=== PATIENT | male | born 1945 | race Caucasian/White ===

== ENCOUNTER 2019-06-29 10:50 | Outpatient (RCR) | payer MEDICARE, SELFPAY ==
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
== END 2019-07-21 14:40 | disposition home or self-care (01) ==
LOC: CHSPT 10:50
PROVIDERS: Visit Provider Orthopaedic Surgery
DX: Z48.89 Encounter for other specified surgical aftercare (principal); Z96.652 Presence of left artificial knee joint
CPT/HCPCS: 97014; 97016; 97110; 97161; 97530; G0283

== ENCOUNTER 2019-09-21 14:51 | Observation (INO) | payer MEDICARE, SELFPAY ==
[2019-09-21] VITALS (14 sets, daily range): BP systolic 105–141; BP diastolic 68–90; PULSE 68–90; RESP 14–27; TEMP 36.4–37; O2SAT 96–100; BMI 24.2
--- NOTE | ~2019-09-21 | US_ITS ---
EXAMINATION: US right upper quadrant DATE: 09/22/2019 09:37 INDICATION: Abdominal pain TECHNIQUE: Multiple grayscale and Doppler ultrasound images of the abdomen were obtained. COMPARISON: None available FINDINGS: The head and and body of the pancreas are normal. The pancreatic tail is obscured by bowel gas. The liver is normal with normal echogenicity and echotexture. No surface nodularity. Normal hepa topetal flow in the main portal vein. The gallbladder is normal with no abnormal wall thickening, per icholecystic fluid or stones. The normal common bile duct measures 5 mm. There was no sonographic Mur phy sign. IMPRESSION: 1. Normal sonographic study of the gallbladder. Reviewed, dictated and finalized at location A.
--- NOTE | ~2019-09-21 | CT_ITS ---
EXAMINATION: CTA chest EXAM DATE: 09/21/2019 16:26 INDICATION: Shortness of breath, anterior chest pain. Right arm and neck pain. TECHNIQUE: Spiral CTA of the chest was performed with 100 cc Omnipaque 350 intravenous contrast inje ction. Images were acquired during the pulmonary arterial phase. Coronal maximum intensity project ion 3D-reconstructions were created by the technologist on dedicated workstation. Axial, coronal and sagittal reformatted images were reviewed. The dose-length product (DLP) for this examination was 3 87.74 mGy-cm. The exposure was tailored according to patient size (auto mA exposure control), and i terative reconstruction (ASIR) was used as additional dose reduction technique. There is no prior st udy for comparison. FINDINGS: The pulmonary arteries are well opacified. Small amount of enhancement within the aorta. Pu lmonary arteries are well opacified and without intraluminal filling defects. No thoracic aortic di ssection. Scattered calcified granulomas. Minimal linear regions of subsegmental atelectasis. There are no pleural or pericardial effusions. Tracheobronchial tree is patent. There is no mediastina l, hilar or axillary lymphadenopathy. There is no pneumothorax. Heart normal in size. There is mild coronary arterial calcification, arterial sclerosis. Upper abdomen is unremarkable. There is thoracic spondylosis without osteoblastic or osteolytic lesions identified. IMPRESSION: 1. No acute cardiopulmonary findings. 2. Postinfectious residua. Reviewed, dictated and finalized at location A.
--- NOTE | 2019-09-21 15:14 | ECG_ITS ---
Measurements Intervals [place] Rate: 79 P: 42 [place]: 195 QRS: -24 QRSD: 104 T: 32 QT: 374 QTc: 431 Interpretive Statements SINUS RHYTHM INCOMPLETE RIGHT BUNDLE BRANCH BLOCK BASELINE ARTIFACT- I, III BORDERLINE ECG Electronically Signed On 09-22-2019 7:07:26 CDT by Tex Vila D.O.
--- NOTE | 2019-09-21 15:17 | ED.GENADULT ---
HPI - General Adult History of Present Illness HPI narrative: Wilian is a 73-year-old man with a past medical history significant for hyperlipidemia and a AAA that presented to the emergency department by private vehicle with chest pain. He had chest pain that started 4 days ago while he was sitting down. It radiates to his epigastric region, upper back and down his right arm. It is worse with activity and better with rest. It is associated with SOB on exertion, lightheadedness and near syncope but no syncope, nausea or vomiting. No fevers, chills, diarrhea or dysuria. Related Data Home Medications Medication Instructions Recorded Confirmed Vision Formula (with lutein) 1 tablet PO DAILY 05/12/19 09/21/19 rosuvastatin 20 mg tablet 40 mg PO DAILY tablet 05/26/19 09/21/19 Allergies Allergy/AdvReac Type Severity Reaction Status Date / Time Penicillins Allergy Intermediate Rash Verified 07/12/19 07:27 Review of Systems Constitutional: Constitutional: Reports no additional constitutional complaints Eyes: Eyes: Reports no additional eye complaints ENT: Reports system reviewed and no additional complaints, except as documented Cardiovascular: Cardiovascular: Reports as per HPI Respiratory: Respiratory: Reports as per HPI Gastrointestinal: Gastrointestinal: Reports no additional gastrointestinal complaints Musculoskeletal: Musculoskeletal: Reports no additional musculoskeletal complaints Integumentary/Breasts: Skin/Breast: Reports system reviewed and no additional complaints, except as docu Neurologic: Reports system reviewed and no additional complaints, except as documented Psychiatric: Psychiatric: Reports no additional psychiatric complaints Endocrine: Endocrine: Reports no additional endocrine complaints Hematologic/Lymphatic: Hematologic/Lymphatic: Reports no additional hematologic/lymphatic complaints Allergic/Immunologic: Allergic/Immunologic: Reports no additional allergic/immunologic complaints [facility] Past Medical History Medical History AAA (abdominal aortic aneurysm) Arthritis Dementia Elevated PSA Hyperlipidemia Osteoarthritis Seizure Surgical History Surgical History H/O shoulder surgery Status post total knee replacement, 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) Family History Family History Mother Family history of malignant neoplasm of breast in first degree relative Father Stomach cancer Social History Social History Smoking packs per day: 2 Smoking cigarettes per day: 40.0 Years smoked: 30 Smoking pack-years: 60.00 Smoking status: Former smoker Tobacco type: cigarettes Smoking end date: 06/22/89 Alcohol intake: current Drinks per week: 1 Substance use: never Gender identity (if verbalized by the patient): Male Spiritual care concerns: No Agree to blood products: No Exam Const: General: no acute distress and alert Orientation/consciousness: patient oriented x3 Limitations: No altered mental status HENMT: Other: Normocephalic, atraumatic Eyes: Conjunctivae: conjunctivae normal Pupils: Equal, round and reactive pupils present Neck: Neck: normal visual inspection Other: No JVD Chest: Chest palpation & inspection: normal inspection of the chest Resp: Effort & Inspection: normal respiratory effort Auscultation: clear to auscultation bilaterally Cardio: Rate: regular rate Rhythm: regular rhythm Heart sounds: no murmurs Other: No JVD, no lower extremity edema GI: Inspection: non-distended GI Palp: Yes Soft to palpation, No Tenderness to palpation present (GI) and No Guarding due to palpation present (GI) Skin: General skin exam: normal color Rashes: no rashes Neuro: General: patient oriented x3 and moves all extremities Extrem: Genera
[2019-09-21] MEDS: NITROGLYCERIN SL 0.4 MG TABLET SUBLINGUAL ×2 (15:34→23:55)
[2019-09-21] MEDS: ASPIRIN 81 MG CHEWABLE TABLET 324 MG PO (15:34)
[2019-09-21 15:35] LABS: Basophils Absolute Auto 0.03 K/mm3 (0.00-0.10); Basophils Percent Auto 0.6 % (0.0-1.0); Eosinophils Absolute Auto 0.14 K/mm3 (0.02-0.50); Eosinophils Percent Auto 2.6 % (1.0-6.0); Hematocrit 42.5 % (37.0-46.0); Hemoglobin 14.4 g/dL (12.4-15.3); Immature Granulocyte Absolute 0.01 K/mm3 (0.00-0.00); Immature Granulocyte Percent A 0.2 % (0.0-0.0); Lymphocytes Absolute Auto 2.07 K/mm3 (1.10-4.50); Lymphocytes Percent Auto 38.3 % (18.0-42.0); Mean Corpuscular HGB Conc 33.9 g/dL (32.0-36.0); Mean Corpuscular Hemoglobin 31.2 pg (27.0-31.0); Mean Corpuscular Volume 92.2 fL (78.0-102.0); Mean Platelet Volume 9.1 fl (8.7-11.0); Monocytes Absolute Auto 0.63 K/mm3 (0.10-0.90); Monocytes Percent Auto 11.7 % (2.0-11.0); Neutrophils Absolute Auto 2.5 K/mm3 (1.7-7.2); Neutrophils Percent Auto 46.6 % (50.0-70.0); Platelet Count Result 251 K/mm3 (150-420); Red Blood Count 4.61 M/mm3 (4.70-6.10); Red Cell Distribution Width 12.6 % (11.6-14.4); White Blood Count 5.4 K/mm3 (4.8-10.8)
[2019-09-21 15:48] LABS: Prothrombin Time 10.5 Seconds (9.64-11.0)
[2019-09-21 15:54] LABS: BNP 5.1 pg/mL (0-100)
[2019-09-21 15:56] LABS: Alanine Aminotransferase 20 U/L (16-63); Albumin Level 3.5 g/dL (3.4-5.0); Alkaline Phosphatase 106 U/L (46-116); Anion Gap 13.6 mmol/L (7-16); Aspartate Amino Transferase 15 U/L (15-37); Bilirubin,Total 0.3 mg/dL (0.00-1.00); Blood Urea Nitrogen 17 mg/dL (7-18); Calcium 8.6 mg/dL (8.5-10.1); Carbon Dioxide 26 mmol/L (21-32); Chloride 107 mmol/L (98-108); Estimated CRCL calculation 62 ml/min; Estimated Glomerular Filt Rate > 60; Glucose 95 mg/dL (70-99); Lipase 100 U/L (73-393); Osmolality Calculated 297 mOsm/kg (285-295); Potassium 3.6 mmol/L (3.5-5.1); Sodium 143 mmol/L (136-145); Total Protein 7.3 g/dL (6.4-8.2)
[2019-09-21 16:00] LABS: Troponin I < 0.02 ng/mL (0.00-0.056)
--- NOTE | 2019-09-21 16:58 | PC.NURSE ---
PT TO BE TRANSFERRED TO 2ND FLOOR AN OBSERVATION ADMIT, ROOM 210 PROVIDED BY JOAQUIN [employer] GENERAL MANAGER, REGISTRATION NOTIFIED.
--- NOTE | 2019-09-21 17:48 | PC.NURSE ---
here from ER with c/o chest pain off and on for 4 days. he claims they come more with exertion. at this time he denies pain. lungs cta. abd soft and bs present. no edema. skin warm and dry. Sr on tele with rates of 70's. oriented to room. eating supper.
--- NOTE | 2019-09-21 21:31 | ECG_ITS ---
Measurements Intervals [place] Rate: 70 P: 50 [place]: 199 QRS: -24 QRSD: 109 T: 35 QT: 399 QTc: 431 Interpretive Statements SINUS RHYTHM INCOMPLETE RIGHT BUNDLE BRANCH BLOCK BORDERLINE ECG Electronically Signed On 09-22-2019 7:43:39 CDT by Tex Vila D.O.
[2019-09-21 21:54] LABS: Troponin I < 0.02 ng/mL (0.00-0.056)
--- NOTE | 2019-09-21 22:50 | PC.NURSE ---
report received from previous RN, pt denies any chest pain or other complaints at this time, belongings and call light within reach, advised to call with any pain or discomfort
--- NOTE | 2019-09-21 23:25 | PC.NURSE ---
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
[2019-09-21] MEDS: ACETAMINOPHEN 325 MG TABLET 650 MG PO (23:35)
--- NOTE | 2019-09-21 23:44 | ECG_ITS ---
Measurements Intervals [place] Rate: 67 P: 44 [place]: 190 QRS: -22 QRSD: 117 T: 28 QT: 407 QTc: 430 Interpretive Statements SINUS RHYTHM INTRAVENTRICULAR CONDUCTION DELAY BORDERLINE ECG Electronically Signed On 09-22-2019 7:42:59 CDT by Tex Vila D.O.
--- NOTE | 2019-09-22 | PC.NURSE ---
pt reports chest pain is resolving, and arm pain is gone, does not want another Nitro med, pt resting and denies any other needs at this time.
--- NOTE | 2019-09-22 00:03 | PC.NURSE ---
2335 Pt c/o chest pain and right arm pain and states his pain is a '5' on a 1-10 pain scale. Attempted to contact Dr. Contreras but he was with another pt; Damien, ER nurse said to get a STAT EKG and cardiac enzymes and she would notify Dr. Contreras about pt's c/o chest pain.
--- NOTE | 2019-09-22 00:08 | PC.NURSE ---
[address] Contreras
[2019-09-22 00:11] LABS: Troponin I < 0.02 ng/mL (0.00-0.056)
--- NOTE | 2019-09-22 01:07 | PC.NURSE ---
pt sitting up watching tv, denies any pain or needs at this time.
--- NOTE | 2019-09-22 02:06 | PC.NURSE ---
pt sitting up in chair, denies any chest pain at this time, denies any other needs
--- NOTE | 2019-09-22 02:50 | PC.NURSE ---
lab at bedside for troponin level
--- NOTE | 2019-09-22 03:10 | ECG_ITS ---
Measurements Intervals [place] Rate: 71 P: 43 [place]: 200 QRS: -23 QRSD: 105 T: 30 QT: 398 QTc: 435 Interpretive Statements SINUS RHYTHM NORMAL ECG Electronically Signed On 09-22-2019 7:43:11 CDT by Tex Vila D.O.
[2019-09-22 03:14] LABS: Troponin I 0.02 ng/mL (0.00-0.056)
[2019-09-22 03:35] VITALS: PULSE 73
--- NOTE | 2019-09-22 03:41 | PC.NURSE ---
pt resting in bed, denies any needs at this time
--- NOTE | 2019-09-22 04:07 | PC.NURSE ---
pt sleeping, no evidence of distress noted
--- NOTE | 2019-09-22 05:11 | PC.NURSE ---
pt sleeping, no evidence of distress noted, call light and belongings within reach
--- NOTE | 2019-09-22 06:18 | PC.NURSE ---
pt sleeping, no evidence of distress noted at this time, belongings and call light within reach
--- NOTE | 2019-09-22 07:05 | PC.NURSE ---
States did have an episode of left chest pain radiated in to back this am, starting to resolve at this time, no diaphoresis and no dyspnea associated with pain, sharp in nature, telemetry SR 70's
[2019-09-22 07:07] VITALS: PULSE 72; RESP 18; TEMP 37
--- NOTE | 2019-09-22 08:05 | PC.NURSE ---
Due to question of gall bladder check breakfast tray held at this time
--- NOTE | 2019-09-22 08:52 | PC.NURSE ---
Ultra sound has been ordered, will remain NPO at this time
[2019-09-22 09:10] LABS: CRP 0.9 mg/dL (0.0-0.9)
--- NOTE | 2019-09-22 09:10 | PC.NURSE ---
Bedside ultrasound being completed
[2019-09-22] MEDS: OPTI-GEN TAB 1 TABLET PO (09:32)
[2019-09-22] MEDS: ROSUVASTATIN 10 MG TABLET 40 MG PO (09:32)
[2019-09-22] MEDS: ASPIRIN 81 MG ENTERIC TABLET PO (09:33)
[2019-09-22] MEDS: PANTOPRAZOLE 40 MG TABLET PO (09:33)
--- NOTE | 2019-09-22 09:35 | PC.NURSE ---
Ultrasound completed, breakfast and am meds to patient
--- NOTE | 2019-09-22 09:46 | PM.SD ---
Same Day Admit/Disch: HPI History of Present Illness Chief complaint: chest and right arm pain Narrative: Wilian Rodgers is a 73 year old male That presented yesterday to the ED with complaints chest pain . Patient has a past history hyperlipidemia, AA, dementia increased PSA seizures, osteoarthritis and arthritis. According to patient for the last 4 days he has not been experiencing chest pain that radiates to his epigastric region in upper back and down his right arm. Patient did note that increased with activity and also his epigastric pain increased with food intake. He also noted that he had shortness of exertion with lightheadedness. Patient did not take anything at this. Patient says he has experience occurs in the past and this does not feel like her. his requested a call back and suggested that at ultrasound of the gallbladder be completed. Ultrasound was completed and was unremarkable it did indicate bowel gas. Patient able to tolerate all meals , slept well and ambulate at baseline. Patient denies , palpitation, extremity numbness, lightheadness, dizziness, constipation, diarrhea, chills or fever. Patient agree that they are ready for discharge and discharge plan. patient has not experienced chest pain or epigastric pains this hospital stay. He does note that his abdomen remains tender. Patient will have to follow-up with his primary care physician for further testing if needed. [facility] Past Medical History Medical History AAA (abdominal aortic aneurysm) Arthritis Dementia Elevated PSA Hyperlipidemia Osteoarthritis Seizure Surgical History Surgical History H/O shoulder surgery Status post total knee replacement, 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) Family History Family History Mother Family history of malignant neoplasm of breast in first degree relative Father Stomach cancer Social History Social History Smoking packs per day: 2 Smoking cigarettes per day: 40.0 Years smoked: 30 Smoking pack-years: 60.00 Smoking status: Former smoker Tobacco type: cigarettes Smoking end date: 06/22/89 Alcohol intake: current Drinks per week: 1 Substance use: never Gender identity (if verbalized by the patient): Male Spiritual care concerns: No Agree to blood products: No Same Day Admit/Disch: Med Pre-admit Medications Home Medications Medication Instructions Recorded Confirmed Type Vision Formula (with lutein) 1 tablet PO DAILY 05/12/19 09/21/19 History rosuvastatin 20 mg tablet 40 mg PO DAILY tablet 05/26/19 09/21/19 History aspirin [Enteric Coated Aspirin] 81 mg PO DAILY #28 tablet 06/09/19 09/21/19 Rx meloxicam 7.5 mg PO BID #60 tablet 06/09/19 09/21/19 Rx hydrocodone-acetaminophen 1 tab PO Q4H PRN #15 tablet 09/22/19 Rx Exam Const: General: cooperative and comfortable Orientation/consciousness: patient oriented x3 Resp: Effort & Inspection: normal respiratory effort, able to speak in complete sentences, no cough, not labored, no nasal flaring and no pursed lip breathing Auscultation: clear to auscultation bilaterally Cardio: Jugular venous distension: no JVD Rate: regular rate Rhythm: regular rhythm GI: Inspection: normal to inspection GI Palp: Yes abdominal tenderness Percussion: Yes normal to percussion Auscultation: normal bowel sounds Skin: General skin exam: normal color Lesions: no lesions Rashes: no rashes Trauma: no lacerations or abrasions Wounds: no wounds Neuro: General: oriented to person, moves all extremities and CN's II-XI intact bilaterally Cognition (Neuro): normal cognition Speech: normal speech DS: Data Data Completed and Pending Labs on day of discharge: Labs from last 24 hours 09/22/19 09/22/19 09/21/19 02:51 02:50 23:48 WBC
[2019-09-22] MEDS: SIMETHICONE 80 MG TAB.CHEW PO (10:06)
--- NOTE | 2019-09-22 10:40 | PC.NURSE ---
Discharge to home, denies questions, discharge packet reviewed and sent home with personal items
--- NOTE | 2019-09-28 15:04 | PC.NURSE ---
DISCHARGE FOLLOW UP: no answer, message left
== END 2019-09-22 10:40 | disposition home or self-care (01) ==
LOC: CHSED 17:00 → CHS2ND 17:01
PROVIDERS: Nurse Practitioner; Admitting Provider Family Medicine; Emergency Provider Family Medicine; PCP Family Medicine; Visit Provider Family Medicine
DX: R07.9 Chest pain, unspecified (principal); R10.13 Epigastric pain; E78.5 Hyperlipidemia, unspecified; R06.02 Shortness of breath; I71.4 Abdominal aortic aneurysm, without rupture; F03.90 Unspecified dementia, unspecified severity, without behavioral disturbance, psychotic disturbance, mood disturbance, and anxiety; R97.20 Elevated prostate specific antigen [PSA]; M19.90 Unspecified osteoarthritis, unspecified site; Z96.652 Presence of left artificial knee joint
CPT/HCPCS: 36415; 71275; 76705; 80053; 83690; 83880; 84484; 85025; 85610; 86140; 93005; 99285; A9270; G0378; Q9965

== ENCOUNTER 2019-09-28 09:17 | Outpatient (CLI) | payer MEDICARE, SELFPAY ==
[2019-09-30 17:04] LABS: H pylori, Urea Breath NOT DETECTED (NOT DETECTED)
== END 2019-09-28 09:18 | disposition home or self-care (01) ==
LOC: CHSLAB 09:20
PROVIDERS: PCP Family Medicine; Visit Provider Family Medicine
DX: K21.9 Gastro-esophageal reflux disease without esophagitis (principal)
CPT/HCPCS: 83013

== ENCOUNTER 2019-10-10 07:10 | Outpatient (CLI) | payer MEDICARE, SELFPAY ==
--- NOTE | 2019-10-10 07:24 | EST_ITS ---
Patient Info Name: Wilian Rodgers Age: 74 years : 1945 Gender: Male Ht: 71 in Wt: 171 lbs BSA: 1.97 m2 HR: 77 bpm BP: 132 / 91 mmHg Heart Rhythm: Sinus Rhythm Technical Quality: Fair Exam Date: 10/10/2019 8:55 AM Exam Location: [facility] Patient Status: Outpatient Admit Date: 10/10/2019 Staff Ordering Physician: Cody Contreras DO Attending Provider: Cody Contreras DO Referring Physician: Cody Christianson Exercise Technologist: Reina Pickens CRT Exercise Physician: Erma Gamboa CEP Exam Type: CA stress test treadmill w NM Study Info Indications ChestPain - An exercise stress test was performed. Reason for Poor Study: poor patient cooperation History/Risk Factors Tobacco Use: Former History/Risk Factors Hypercholesterolemia. Summary 1. 1. Negative Abdoulaye exercise stress test for ischemic ST changes by ECG criteria. 2. 2. Mild reduced functional capacity, achieving 8 METs of workload. 3. 3. Appropriate HR response to exercise. 4. 4. Appropriate HR recovery at 1 minute post exercise. 5. 5. Relative hypotensive response to exercise. 6. 6. Nuclear scan to follow and will be reported separately. Please correlate with it. Protocol: Abdoulaye Stress ECG Details Stage: REST Duration (min): 1 min : 52 sec Speed (mph): 0.0 Grade (%): 0 HR (bpm): 78 SBP (mmHg): 132 DBP (mmHg): 91 METS: --- Stage: REST Duration (min): 3 min : 53 sec Speed (mph): 0.0 Grade (%): 0 HR (bpm): 90 SBP (mmHg): 132 DBP (mmHg): 91 METS: --- Stage: STAGE 1 Duration (min): 1 min : 0 sec Speed (mph): 1.7 Grade (%): 10 HR (bpm): 99 SBP (mmHg): 132 DBP (mmHg): 91 METS: --- Stage: STAGE 1 Duration (min): 2 min : 0 sec Speed (mph): 1.7 Grade (%): 10 HR (bpm): 111 SBP (mmHg): 132 DBP (mmHg): 91 METS: --- Stage: STAGE 1 Duration (min): 3 min : 0 sec Speed (mph): 1.7 Grade (%): 10 HR (bpm): 110 SBP (mmHg): 169 DBP (mmHg): 96 METS: --- Stage: STAGE 2 Duration (min): 1 min : 0 sec Speed (mph): 2.5 Grade (%): 12 HR (bpm): 115 SBP (mmHg): 169 DBP (mmHg): 96 METS: --- Stage: STAGE 2 Duration (min): 2 min : 0 sec Speed (mph): 2.5 Grade (%): 12 HR (bpm): 115 SBP (mmHg): 169 DBP (mmHg): 96 METS: --- Stage: STAGE 2 Duration (min): 3 min : 0 sec Speed (mph): 2.5 Grade (%): 12 HR (bpm): 117 SBP (mmHg): 179 DBP (mmHg): 95 METS: --- Stage: STAGE 3 Duration (min): 1 min : 0 sec Speed (mph): 3.4 Grade (%): 14 HR (bpm): 123 SBP (mmHg): 179 DBP (mmHg): 95 METS: --- Stage: STAGE 3 Duration (min): 1 min : 1 sec Speed (mph): 3.4 Grade (%): 14 HR (bpm): 123 SBP (mmHg): 179 DBP (mmHg): 95 METS: --- Stage: RECOVERY Duration (min): 0 min : 58 sec Speed (mph): 0.0 Grade (%): 0 HR (bpm): 104 SBP (mmHg):
== END 2019-10-10 07:11 | disposition home or self-care (01) ==
LOC: CHSIMG 07:15
PROVIDERS: PCP Family Medicine; Visit Provider Family Medicine
DX: R10.13 Epigastric pain (principal); R07.9 Chest pain, unspecified
CPT/HCPCS: 78452; 93017; A9502

== ENCOUNTER 2019-11-21 08:43 | Outpatient (CLI) | payer MEDICARE, SELFPAY ==
--- NOTE | ~2019-11-21 | US_ITS ---
EXAMINATION: US aorta DATE: 11/21/2019 09:10 INDICATION: Abdominal aortic aneurysm without rupture. TECHNIQUE: Grayscale, color Doppler, and pulsed Doppler images of the aorta and common iliac arteries were obtained. COMPARISON: Ultrasound 05/16/2019 FINDINGS: The aorta demonstrates a 3.3 cm fusiform aneurysm. The right common iliac artery measures 1.2 cm. The left common iliac artery measures 1.2 cm. IMPRESSION: 1. Stable 3.3 cm fusiform abdominal aortic aneurysm. Reviewed, dictated and finalized at location A.
== END 2019-11-21 08:44 | disposition home or self-care (01) ==
LOC: CHSIMG 08:47
PROVIDERS: PCP Family Medicine; Visit Provider Internal Medicine Cardiovascular Disease
DX: I71.4 Abdominal aortic aneurysm, without rupture (principal)
CPT/HCPCS: 76775

== ENCOUNTER 2019-12-04 16:25 | Emergency (ER) | payer MEDICARE, SELFPAY ==
[2019-12-04 16:35] VITALS: BP 141/85; PULSE 79; RESP 16; TEMP 36.7; O2SAT 99
--- NOTE | 2019-12-04 16:46 | ED.GENADULT ---
HPI - General Adult General Chief complaint: Shortness of Breath/Dyspnea Stated complaint: shortness of breath Source: patient Mode of arrival: ambulatory Limitations: no limitations History of Present Illness HPI narrative: 74-year-old male patient is here in the ER with chief complaints of experiencing shaking inside him and feeling weak. The patient states that he has been having symptoms as such since the beginning of September that he gets some shaking feeling inside his chest , associated with pain in his arms and chest and he feels that he cannot get a good breath. The patient has been under care of his primary care physician as well as the solar sales assessor . Patient states that his isosorbide prescription was increased as of Thursday by his solar sales assessor to 1 tablet twice a day instead of once daily. Patient also takes Crestor and Claritin in addition to that and has taken himself off of all other medications. Patient is awaiting a call from his solar sales assessor regarding a cardiac catheterization .Patient does admit to being anxious over his health condition. MD complaint: feeling shaky Onset (ago): month(s) Location: chest Severity: moderate Severity scale (1-10): 5 Pain Consistency: intermittent Relieving factors: none Exacerbating factors: none Associated symptoms: denies other symptoms Related Data Home Medications Medication Instructions Recorded Confirmed rosuvastatin 20 mg tablet 40 mg PO DAILY tablet 05/26/19 12/04/19 isosorbide mononitrate 60 mg PO DAILY 12/04/19 12/04/19 loratadine [Claritin] 10 mg PO DAILY 12/04/19 12/04/19 Allergies Allergy/AdvReac Type Severity Reaction Status Date / Time Penicillins Allergy Intermediate Rash Verified 10/07/19 06:51 Review of Systems Review of Systems: All systems reviewed & are unremarkable except as noted in HPI and below Constitutional: Constitutional: Reports weakness Eyes: Eyes: Reports no additional eye complaints Cardiovascular: Cardiovascular: Reports as per HPI, Reports chest pain and Denies radiating jaw, neck or arm pain Respiratory: Respiratory: Denies chest congestion, Denies cough, Reports dyspnea and Denies wheezing Gastrointestinal: Gastrointestinal: Reports no additional gastrointestinal complaints Musculoskeletal: Musculoskeletal: Reports no additional musculoskeletal complaints Integumentary/Breasts: Skin/Breast: Reports system reviewed and no additional complaints, except as docu Psychiatric: Psychiatric: Reports no additional psychiatric complaints and Reports as per HPI [facility] Past Medical History Medical History AAA (abdominal aortic aneurysm) Arthritis Dementia Elevated PSA Hyperlipidemia Osteoarthritis Seizure Surgical History Surgical History H/O shoulder surgery Status post total knee replacement, 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) Family History Family History Mother Family history of malignant neoplasm of breast in first degree relative Father Stomach cancer Social History Social History Smoking packs per day: 2 Smoking cigarettes per day: 40.0 Years smoked: 30 Smoking pack-years: 60.00 Smoking status: Former smoker Tobacco type: cigarettes Smoking end date: 06/22/89 Alcohol intake: current Drinks per week: 1 Substance use: never Gender identity (if verbalized by the patient): Male Spiritual care concerns: No Agree to blood products: No Exam Const: General: no acute distress and alert Orientation/consciousness: patient oriented x3 HENMT: Head: normal to inspection Face and sinus: normal facial exam Mouth: Yes moist mucous membranes Eyes: Conjunctivae: conjunctivae normal Pupils: Equal, round and reactive pupils present EOM: EOMs intact bilaterally Neck: Neck: normal visual inspection and no lymphadenop
[2019-12-04 16:50] VITALS: BP 123/76; PULSE 76
--- NOTE | 2019-12-04 16:50 | ECG_ITS ---
Measurements Intervals [place] Rate: 75 P: 49 [place]: 192 QRS: -54 QRSD: 101 T: -13 QT: 372 QTc: 417 Interpretive Statements SINUS RHYTHM INCOMPLETE RIGHT BUNDLE BRANCH BLOCK LEFT ANTERIOR FASCICULAR BLOCK BORDERLINE T WAVE ABNORMALITY- INFERIOR LEADS BASELINE WANDER- II, III ABNORMAL ECG Electronically Signed On 12-05-2019 7:13:11 CDT by Tex Vlia D.O.
[2019-12-04 16:51] VITALS: BP 138/87; PULSE 87
[2019-12-04 17:06] LABS: Basophils Absolute Auto 0.04 K/mm3 (0.00-0.10); Basophils Percent Auto 0.7 % (0.0-1.0); Eosinophils Absolute Auto 0.14 K/mm3 (0.02-0.50); Eosinophils Percent Auto 2.4 % (1.0-6.0); Hematocrit 41.4 % (37.0-46.0); Immature Granulocyte Absolute 0.01 K/mm3 (0.00-0.00); Immature Granulocyte Percent A 0.2 % (0.0-0.0); Lymphocytes Absolute Auto 2.01 K/mm3 (1.10-4.50); Lymphocytes Percent Auto 34.4 % (18.0-42.0); Mean Corpuscular HGB Conc 33.8 g/dL (32.0-36.0); Mean Corpuscular Hemoglobin 31.5 pg (27.0-31.0); Mean Corpuscular Volume 93.2 fL (78.0-102.0); Mean Platelet Volume 9.2 fl (8.7-11.0); Monocytes Absolute Auto 0.65 K/mm3 (0.10-0.90); Monocytes Percent Auto 11.1 % (2.0-11.0); Neutrophils Percent Auto 51.2 % (50.0-70.0); Platelet Count Result 240 K/mm3 (150-420); Red Blood Count 4.44 M/mm3 (4.70-6.10); Red Cell Distribution Width 12.8 % (11.6-14.4); White Blood Count 5.9 K/mm3 (4.8-10.8)
[2019-12-04 17:25] LABS: Anion Gap 9.6 mmol/L (7-16); Blood Urea Nitrogen 11 mg/dL (7-18); Calcium 8.5 mg/dL (8.5-10.1); Carbon Dioxide 30 mmol/L (21-32); Chloride 105 mmol/L (98-108); Estimated Glomerular Filt Rate > 60; Glucose 89 mg/dL (70-99); Osmolality Calculated 290 mOsm/kg (285-295); Potassium 3.6 mmol/L (3.5-5.1); Sodium 141 mmol/L (136-145); Troponin I < 0.02 ng/mL (0.00-0.056)
[2019-12-04 17:45] VITALS: BP 123/84; PULSE 80; O2SAT 96
== END 2019-12-04 18:00 | disposition home or self-care (01) ==
PROVIDERS: Emergency Provider Emergency Medicine; PCP Family Medicine
DX: R07.9 Chest pain, unspecified (principal); F41.9 Anxiety disorder, unspecified; Z87.891 Personal history of nicotine dependence
CPT/HCPCS: 36415; 80048; 83735; 84484; 85025; 93005; 99283; 99284

== ENCOUNTER 2019-12-10 00:24 | Outpatient (CLI) | payer MEDICARE, SELFPAY ==
[2019-12-10 16:19] LABS: SARS-CoV-2 RNA PCR Negative
== END 2019-12-10 00:25 | disposition home or self-care (01) ==
LOC: ANHCOVIDDT 00:24
PROVIDERS: PCP Family Medicine; Visit Provider Internal Medicine Cardiovascular Disease
DX: Z01.818 Encounter for other preprocedural examination (principal); Z11.59 Encounter for screening for other viral diseases; R10.9 Unspecified abdominal pain
CPT/HCPCS: 87635; C9803; U0003

== ENCOUNTER → 2019-12-13 05:23 | Day surgery (SDC) | payer MEDICARE, SELFPAY ==
[2019-12-12 16:08] VITALS: BMI 22.4
[2019-12-12 17:00] VITALS: BP 153/82; PULSE 70; RESP 20; O2SAT 98
[2019-12-13] VITALS (18 sets, daily range): BP systolic 115–153; BP diastolic 79–97; PULSE 59–77; RESP 10–21; TEMP 36.5–36.7; O2SAT 95–99
[2019-12-13 08:55] LABS: Basophils Percent Auto 0.8 % (0.2-1.2); Eosinophils Absolute Auto 0.2 K/mm3 (0-0.3); Eosinophils Percent Auto 3.3 % (0-4.4); Hematocrit 46.6 % (42.0-52.0); Hemoglobin 15.7 g/dL (14.0-18.0); Immature Granulocyte Absolute 0.01 K/mm3 (0.00-0.031); Immature Granulocyte Percent A 0.2 % (0-0.5); Lymphocytes Absolute Auto 1.71 K/mm3 (0.9-3.2); Lymphocytes Percent Auto 35.3 % (18.3-44.2); Mean Corpuscular HGB Conc 33.7 g/dl (32-36); Mean Corpuscular Hemoglobin 31.6 pg (26-34); Mean Corpuscular Volume 93.8 fl (80-100); Mean Platelet Volume 9.1 fl (7.4-10.4); Monocytes Absolute Auto 0.5 K/mm3 (0.1-0.6); Monocytes Percent Auto 10.3 % (2.6-8.5); Neutrophils Absolute Auto 2.4 K/mm3 (1.3-6.7); Neutrophils Percent Auto 50.1 % (45.5-73.1); Platelet Count Result 230 k/mm3 (150-375); Red Blood Count 4.97 M/mm3 (4.6-6.20); Red Cell Distribution Width 13.2 % (11.5-14.5); White Blood Count 4.9 K/mm3 (4.5-10.0)
[2019-12-13 09:05] LABS: INR 0.9; Prothrombin Time 11.6 Seconds (11.1-14.7)
[2019-12-13 09:13] LABS: Alanine Aminotransferase 24 U/L (4-50); Albumin Level 4.5 g/dL (3.5-5.1); Alkaline Phosphatase 112 U/L (38-126); Aspartate Amino Transferase 28 U/L (17-59); Bilirubin,Total 0.4 mg/dL (0.2-1.3); Blood Urea Nitrogen 14 mg/dL (9-20); Calcium 9.4 mg/dL (8.4-10.2); Carbon Dioxide 28 mmol/L (22-30); Chloride 105 mmol/L (98-107); Estimated CRCL calculation 74 ml/min; Estimated Glomerular Filt Rate > 60; Glucose 92 mg/dL (75-110); Potassium 3.8 mmol/L (3.4-5.0); Sodium 141 mmol/L (137-145)
--- NOTE | 2019-12-13 10:49 | WPDMODSED ---
Moderate Sedation Note-Pt Data Patient Data Allergies Allergy/AdvReac Type Severity Reaction Status Date / Time Penicillins Allergy Intermediate Rash Verified 10/07/19 06:51 Home Medications Medication Instructions Recorded Confirmed Type rosuvastatin 20 mg tablet 40 mg PO DAILY tablet 05/26/19 12/12/19 History isosorbide mononitrate 30 mg PO BID 12/04/19 12/12/19 History loratadine [Claritin] 10 mg PO DAILY 12/04/19 12/12/19 History aspirin 81 mg PO DAILY 12/12/19 12/12/19 History Current Medications: Active Medications Sodium Chloride (Normal Saline Iv) 500 mls @ 100 mls/hr IV CONT .Q5H COUNT INCLUDES THE [facility] Sedation/Anesthesia: No previous sedation/anesthesia problems (including family history). [facility] Social History Social History Smoking packs per day: 2 Smoking cigarettes per day: 40.0 Years smoked: 30 Smoking pack-years: 60.00 Smoking status: Former smoker Tobacco type: cigarettes Smoking end date: 06/22/89 Alcohol intake: current Drinks per week: 1 Substance use: never Gender identity (if verbalized by the patient): Male Spiritual care concerns: No Agree to blood products: No Mod Sed Physical Exam Physical Exam Pre Procedural Exam: Normal: Airway Hours since solid foods: 10 Hours since liquid intake: 10 Internal Medicine - PN: Obj Da Vital Signs Vital Signs: Vital Signs - 24 hr 12/13/19 08:55 Temperature 36.7 C Pulse Rate 75 Respiratory Rate 16 Blood Pressure 136/97 H Pulse Oximetry 97 Meds/Results Medications: Active Medications Generic Name Dose Route Start Last Admin Trade Name Freq PRN Reason Stop Dose Admin Sodium Chloride 500 mls @ 100 mls/hr 12/13/19 06:20 Normal Saline Iv IV CONT .Q5H COUNT INCLUDES THE [facility] Labs CBC & Chem 7: 12/13/19 08:50 12/13/19 08:50 Labs: Laboratory Results - last 24 hr 12/13/19 12/13/19 12/13/19 08:50 08:50 08:50 WBC 4.9 RBC 4.97 Hgb 15.7 D Hct 46.6 MCV 93.8 MCH 31.6 MCHC 33.7 RDW 13.2 Plt Count 230 MPV 9.1 Immature Gran % (Auto) 0.2 Neut % (Auto) 50.1 Lymph % (Auto) 35.3 [place] % (Auto) 10.3 H Eos % (Auto) 3.3 Baso % (Auto) 0.8 Lymph # (Auto) 1.71 [place] # (Auto) 0.5 Eos # (Auto) 0.2 Baso # (Auto) 0.0 Abs Immat Gran (auto) 0.01 Absolute Neuts (auto) 2.4 Absolute Nucleated RBC 0.0 Nucleated RBC % 0.0 PT 11.6 INR 0.9 Sodium 141 Potassium 3.8 Chloride 105 Carbon Dioxide 28 BUN 14 Creatinine 0.80 Estim Creat Clear Calc 74 Estimated GFR > 60 Glucose 92 Calcium 9.4 Total Bilirubin 0.4 AST 28 ALT 24 Alkaline Phosphatase 112 Total Protein 8.0 Albumin 4.5 ASA Classification/Sedation ASA Classification/Sedation Risks: Risks, benefits and alternatives explained and patient/family accepted plan for sedation. Patient re-evaluated immediately prior to sedation.
--- NOTE | 2019-12-13 11:31 | WPDCARDPROC ---
Cardiac Cath Procedure Note Date of procedure:: 12/13/19 Performing physician:: Shaun Jones MD Procedure Procedure note:: LEFT HEART CATHETERIZATION AND CORONARY ANGIOGRAM REPORT DATE OF PROCEDURE: 12/13/2019 INDICATION FOR PROCEDURE: Chest pain, abnormal MPI BRIEF CLINICAL HISTORY: 74-year-old male with AAA, DJD. Patient was recently admitted to [facility] on 09/21/2019 with complaints of chest discomfort. He was apparently ruled out for VA by serial negative cardiac biomarkers. Subsequently, patient had exercise MPI done [id number]. Exercise part of the MPI was reportedly negative for ischemia; however, MPI reportedly showed large size severe inferolateral perfusion defect; LVEF 64%. He was referred for cardiac catheterization to rule out significant obstructive CAD. Benefits and risks of the procedure were discussed with the patient in depth, and informed consent was obtained prior to the procedure. Risks of the procedure include but are not limited to vascular complications including groin hematoma, retroperitoneal bleed, vessel perforation; periprocedural VA, cardiac arrhythmias, stroke, contrast induced nephropathy, and . After discussing all the benefits, risks and alternatives, patient was willing to proceed with the procedure. PROCEDURES PERFORMED: 1. Left heart catheterization- Selective left and right coronary angiogram; left ventriculogram and hemodynamic assessment 2. Selective right common femoral angiogram 3. Moderate sedation-CPT code 17884 MODERATE SEDATION: Midazolam 1 mg; fentanyl 25 mcg; Start time 1054 , Stop time 1115 ; Total [id number] time 21 minutes; Rima Jones RN was trained observer for moderate sedation. ACCESS SITE: Right common femoral artery PROCEDURE NOTE: After obtaining informed consent, patient was brought to catheterization lab and prepped and draped in a usual sterile manner. After local anesthesia with lidocaine, right common femoral artery access was taken with micropuncture needle followed by insertion of a 5 Singaporean sheath. Selective left and right coronary angiogram was performed using 5 Singaporean JL4 and JR4 catheters respectively. Orthogonal views were taken. Next, a 5 Singaporean pigtail catheter was advanced in the LV cavity and was flushed with normal saline. LV pressure measurement was performed. After this, left ventriculogram was performed. The catheter was flushed again, and gradient across the aortic valve was measured on the pullback of the catheter. Finally, selective right common femoral angiogram was performed followed by successful deployment of Angio-Seal vascular closure device. Patient tolerated procedure well without any immediate procedure related complications. Patient was given aspirin and loading dose of ticagrelor in the [employer] airport maintenance, and he will be initiated on anticoagulation with heparin. FINDINGS: LEFT MAIN CORONARY: The left main coronary artery is a large caliber with, no significant focal stenosis. The vessel bifurcates in the LAD and dominant left circumflex branches. LEFT ANTERIOR DESCENDING ARTERY: The LAD is a medium caliber vessel, tapers distally and wraps LV apex. There is about 80% stenosis in the distal most part of the proximal LAD and in the proximal part of the mid LAD at the origin of the major diagonal branch. This is a bifurcating lesion involving the ostium of the major diagonal branch which has about 70-80% stenosis. The upper part of the distal LAD has mild diffuse nonobstructive disease. LEFT CIRCUMFLEX ARTERY: the left circumflex artery is a large caliber, dominant vessel. There is high-grade, about 95% stenosis in the mid segment, followed by a filling defect just distal to the high-grade stenosis. There is CORY 1 flow in the distal left circumflex artery. The vessel gives rise to medium-sized OM branches. RIGHT CORONARY ARTERY: The right coronary artery is a medium-sized, nondominant vessel with mild disease in the proxima
--- NOTE | 2019-12-13 11:54 | PM.IMHP ---
H&P: HPI History of Present Illness Chief complaint: Abnormal Stress Test, Chest Heaviness Narrative: Wilian Rodgers is a 74 year old male with AAA, DJD. Patient was recently admitted to [facility] on 09/21/2019 with complaints of chest discomfort. He was apparently ruled out for AR by serial negative cardiac biomarkers. Subsequently, patient had exercise MPI done [id number]. Exercise part of the MPI was reportedly negative for ischemia; however, MPI reportedly showed large size severe inferolateral perfusion defect; LVEF 64%. He was referred for cardiac catheterization to rule out significant obstructive CAD. [facility] Past Medical History Medical History AAA (abdominal aortic aneurysm) Arthritis Dementia Elevated PSA Hyperlipidemia Osteoarthritis Seizure Surgical History Surgical History H/O shoulder surgery Status post total knee replacement, 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) Family History Family History Mother Family history of malignant neoplasm of breast in first degree relative Father Stomach cancer Social History Social History Smoking packs per day: 2 Smoking cigarettes per day: 40.0 Years smoked: 30 Smoking pack-years: 60.00 Smoking status: Former smoker Tobacco type: cigarettes Smoking end date: 06/22/89 Alcohol intake: current Drinks per week: 1 Substance use: never Gender identity (if verbalized by the patient): Male Spiritual care concerns: No Agree to blood products: No Meds Home Medications and Allergies Home Medications Medication Instructions Recorded Confirmed Type rosuvastatin 20 mg tablet 40 mg PO DAILY tablet 05/26/19 12/12/19 History isosorbide mononitrate 30 mg PO BID 12/04/19 12/12/19 History loratadine [Claritin] 10 mg PO DAILY 12/04/19 12/12/19 History aspirin 81 mg PO DAILY 12/12/19 12/12/19 History Allergies Allergy/AdvReac Type Severity Reaction Status Date / Time Penicillins Allergy Intermediate Rash Verified 10/07/19 06:51 Vital Signs Vital Signs - 24 hr 12/13/19 08:55 Temperature 36.7 C Pulse Rate 75 Respiratory Rate 16 Blood Pressure 136/97 H Pulse Oximetry 97 Exam Const: General: no acute distress, alert and awake HENMT: Head: normocephalic and atraumatic Ears: hearing grossly normal bilaterally and external ears normal General nose exam: Normal external nose present and no epistaxis Face and sinus: normal facial exam and no ecchymosis Mouth: Yes tongue normal and Yes moist mucous membranes Teeth and gingiva: dentition normal Eyes: Conjunctivae: conjunctivae normal Sclera: sclerae normal Pupils: Equal, round and reactive pupils present EOM: EOMs intact bilaterally Neck: Neck: normal visual inspection, supple and no JVD Thyroid: thyroid normal Carotids: normal carotid upstroke Resp: Effort & Inspection: normal respiratory effort and able to speak in complete sentences Auscultation: clear to auscultation bilaterally Cardio: Jugular venous distension: no JVD Rate: regular rate Rhythm: regular rhythm Heart sounds: S1 normal heart sound present, S2 normal heart sound present and no murmurs GI: Inspection: normal to inspection GI Palp: No abdominal tenderness Auscultation: normal bowel sounds Skin: Other: no rash on exposed areas, no cyanosis Neuro: Cranial nerves: Yes Equal, round and reactive pupils present and Yes Normal hearing present Other: alert, oriented, no major focal deficits on gross neurological examination Extrem: Other: no edema, no cyanosis, no major deformities Psych: Appearance: grossly normal Mental Status: mental status grossly normal H&P: Results Labs Labs: Short CBC 12/13/19 Range/Units 08:50 WBC 4.9 (4.5-10.0) K/mm3 Hgb 15.7 D (14.0-18.0) g/dL Hct 46.6 (42.0-52.0) % Plt
--- NOTE | 2019-12-13 11:55 | PM.TDS ---
Transfer Discharge Sum: Prov Provider Primary care physician: Cody Contreras DO DS: Admitting Diagnosis Admitting Diagnosis Admitting Diagnosis: Chest pain, abnormal stress test DS: Discharge Diagnosis Discharge Diagnosis (1) Angina of effort: Code(s): I20.8 - Other forms of angina pectoris Status: Acute Assessment and Plan: patient coronary angiogram showed multivessel CAD. He is being transferred to [facility] for further cardiac care including high-risk PCI. Transfer Discharge Sum: Med Medications Active and Home Medications: Home Medications rosuvastatin 20 mg tablet 40 mg PO DAILY tablet 05/26/19 [History Confirmed 12/12/19] isosorbide mononitrate 30 mg PO BID 12/04/19 [History Confirmed 12/12/19] loratadine [Claritin] 10 mg PO DAILY 12/04/19 [History Confirmed 12/12/19] aspirin 81 mg PO DAILY 12/12/19 [History Confirmed 12/12/19] Active Medications Sodium Chloride (Normal Saline Iv) 500 mls @ 100 mls/hr IV CONT .Q5H KHANG Transfer Discharge Sum: Hosp Hospital Course Hospital course: Wilian Rodgers is a 74 year old male with AAA, DJD. Patient was recently admitted to [facility] on 09/21/2019 with complaints of chest discomfort. He was apparently ruled out for CT by serial negative cardiac biomarkers. Subsequently, patient had exercise MPI done [id number]. Exercise part of the MPI was reportedly negative for ischemia; however, MPI reportedly showed large size severe inferolateral perfusion defect; LVEF 64%. He was referred for cardiac catheterization to rule out significant obstructive CAD. Patient underwent coronary angiogram which showed multivessel CAD in the dominant left coronary system with high-grade stenosis in the mid LAD at the origin of the diagonal branch involving the ostium of the diagonal branch; high-grade, subtotal stenosis in the dominant mid left circumflex artery with selective blood flow. RCA is nondominant with [id number] diffuse disease. LVEF is relatively preserved. Patient was taken off the catheterization table, and will be transferred to [facility] for further cardiac care including high-risk PCI. Time Spent with Patient Time attestation: Total time spent providing and/or coordinating transfer services: 55 minutes Exam Const: General: no acute distress, alert and awake HENMT: Head: normocephalic and atraumatic Ears: hearing grossly normal bilaterally and external ears normal General nose exam: Normal external nose present and no epistaxis Face and sinus: normal facial exam and no ecchymosis Mouth: Yes tongue normal and Yes moist mucous membranes Teeth and gingiva: dentition normal Eyes: Conjunctivae: conjunctivae normal Sclera: sclerae normal Pupils: Equal, round and reactive pupils present EOM: EOMs intact bilaterally Neck: Neck: normal visual inspection, supple and no JVD Thyroid: thyroid normal Carotids: normal carotid upstroke Resp: Effort & Inspection: normal respiratory effort and able to speak in complete sentences Auscultation: clear to auscultation bilaterally Cardio: Jugular venous distension: no JVD Rate: regular rate Rhythm: regular rhythm Heart sounds: S1 normal heart sound present, S2 normal heart sound present and no murmurs GI: Inspection: normal to inspection GI Palp: No abdominal tenderness Auscultation: normal bowel sounds Skin: Other: no rash on exposed areas, no cyanosis Neuro: Cranial nerves: Yes Equal, round and reactive pupils present and Yes Normal hearing present Other: alert, oriented, no major focal deficits on gross neurological examination Extrem: Other: no edema, no cyanosis, no major deformities Psych: Appearance: grossly normal Mental Status: mental status grossly normal DS: Data Data Completed and Pending Labs on day of discharge: Labs from last 24 hours 12/13/19 12/13/19 12/13/19 08:50 08:50 08:50 WBC 4.9 RBC 4.97 Hgb 15.7 D Hct 46.6 MCV
== END ==
PROVIDERS: PCP Family Medicine; Visit Provider Internal Medicine Cardiovascular Disease
PROC: 4A023N7 Measurement of Cardiac Sampling and Pressure, Left Heart, Percutaneous Approach (ICD-10-PCS; CPT 93452; principal; 2019-12-13 10:30)
DX: I25.10 Atherosclerotic heart disease of native coronary artery without angina pectoris (principal); R94.39 Abnormal result of other cardiovascular function study; R07.9 Chest pain, unspecified; I71.4 Abdominal aortic aneurysm, without rupture; E78.5 Hyperlipidemia, unspecified; F03.90 Unspecified dementia, unspecified severity, without behavioral disturbance, psychotic disturbance, mood disturbance, and anxiety; Z79.82 Long term (current) use of aspirin; Z87.891 Personal history of nicotine dependence
CPT/HCPCS: 36415; 80053; 85025; 85610; 93458; A9270; C1887; C1894; J0583; J1644; J2250; J3010; J7040

== ENCOUNTER 2020-01-16 13:46 | Outpatient (RCR) | payer MEDICARE, SELFPAY ==
[2020-01-16 14:30] VITALS: BP 114/74; PULSE 74; RESP 16; O2SAT 99; BMI 24.0
[2020-01-16 14:35] VITALS: BP 115/76
[2020-01-16 16:52] VITALS: PULSE 74
== END 2020-04-15 23:59 | disposition home or self-care (01) ==
PROVIDERS: PCP Family Medicine; Visit Provider Internal Medicine Cardiovascular Disease
DX: Z98.61 Coronary angioplasty status (principal)
CPT/HCPCS: 93798

== ENCOUNTER 2020-03-21 12:39 | Observation (INO) | payer MEDICARE, SELFPAY ==
[2020-03-21] VITALS (7 sets, daily range): BP systolic 101–111; BP diastolic 63–72; PULSE 52–66; RESP 16–20; TEMP 36.3–36.7; O2SAT 95–100; BMI 22.3
--- NOTE | ~2020-03-21 | XR_ITS ---
EXAMINATION: XR chest 1V portable DATE: 03/21/2020 13:04 INDICATION: Chest pain. TECHNIQUE: A single frontal view of the chest was obtained. COMPARISON: Chest single view 04/19/2012, chest CT 09/21/2019 FINDINGS: Calcified right lung nodules and calcified hilar lymph nodes are consistent with old granul omatous disease. No pleural effusion or pneumothorax. The heart size is normal. There are old healed right rib fractures. IMPRESSION: 1. No acute cardiopulmonary disease. Reviewed, dictated and finalized at location A.
--- NOTE | 2020-03-21 12:48 | ECG_ITS ---
Measurements Intervals [place] Rate: 56 P: 50 [place]: 205 QRS: -51 QRSD: 109 T: -2 QT: 428 QTc: 414 Interpretive Statements SINUS BRADYCARDIA INCOMPLETE RIGHT BUNDLE BRANCH BLOCK LEFT ANTERIOR FASCICULAR BLOCK BORDERLINE T WAVE ABNORMALITY- INFERIOR LEADS ABNORMAL ECG Electronically Signed On 03-21-2020 13:31:12 CDT by Tex Vila D.O.
[2020-03-21] MEDS: ASPIRIN 81 MG CHEWABLE TABLET 324 MG PO (13:15)
[2020-03-21 13:22] LABS: Basophils Absolute Auto 0.05 K/mm3 (0.00-0.10); Basophils Percent Auto 1.1 % (0.0-1.0); Eosinophils Percent Auto 2.2 % (1.0-6.0); Hematocrit 39.6 % (37.0-46.0); Hemoglobin 13.2 g/dL (12.4-15.3); Immature Granulocyte Absolute 0.01 K/mm3 (0.00-0.00); Immature Granulocyte Percent A 0.2 % (0.0-0.0); Lymphocytes Absolute Auto 1.74 K/mm3 (1.10-4.50); Lymphocytes Percent Auto 38.7 % (18.0-42.0); Mean Corpuscular HGB Conc 33.3 g/dL (32.0-36.0); Mean Corpuscular Hemoglobin 31.8 pg (27.0-31.0); Mean Corpuscular Volume 95.4 fL (78.0-102.0); Mean Platelet Volume 9.4 fl (8.7-11.0); Monocytes Absolute Auto 0.46 K/mm3 (0.10-0.90); Monocytes Percent Auto 10.2 % (2.0-11.0); Neutrophils Absolute Auto 2.1 K/mm3 (1.7-7.2); Neutrophils Percent Auto 47.6 % (50.0-70.0); Platelet Count Result 255 K/mm3 (150-420); Red Blood Count 4.15 M/mm3 (4.70-6.10); Red Cell Distribution Width 13.2 % (11.6-14.4); White Blood Count 4.5 K/mm3 (4.8-10.8)
--- NOTE | 2020-03-21 13:29 | ED.GENADULT ---
HPI - General Adult General Chief complaint: Chest Pain Stated complaint: chest pain Source: patient Mode of arrival: ambulatory Limitations: no limitations History of Present Illness HPI narrative: Wilian is a 74M with a PMH of CAD s/p stent placement recently, OA, HLD and a AAA that presented to the ED with chest discomfort and lightheadedness. Just before coming in he was working and had a numbness from his test that radiated into both arms and his thighs. It was associated with near syncope, SOB, diaphoresis, and nausea. It was better when he sat down. However, when he got up to walk in he had more SOB and lightheadedness. He did take his usual meds. His symptoms were partly relieved with nitroglycerin. Related Data Home Medications Medication Instructions Recorded Confirmed rosuvastatin 20 mg tablet 40 mg PO DAILY tablet 05/26/19 03/21/20 loratadine [Claritin] 10 mg PO DAILY 12/04/19 03/21/20 aspirin 81 mg PO DAILY 12/12/19 03/21/20 fluticasone propionate 2 spray INTRANASAL DAILY 03/21/20 03/21/20 lutein 20 mg PO DAILY 03/21/20 03/21/20 metoprolol tartrate 12.5 mg PO BID 03/21/20 03/21/20 ticagrelor [Brilinta] 90 mg PO BID 03/21/20 03/21/20 Allergies Allergy/AdvReac Type Severity Reaction Status Date / Time Penicillins Allergy Intermediate Rash Verified 10/07/19 06:51 Review of Systems Constitutional: Constitutional: Denies chills, Denies fever(s) and Reports weakness Eyes: Eyes: Reports no additional eye complaints ENT: Comments: Admits headache Cardiovascular: Cardiovascular: Reports as per HPI Respiratory: Respiratory: Reports as per HPI Gastrointestinal: Gastrointestinal: Reports no additional gastrointestinal complaints Genitourinary: Genitourinary: Reports no additional male genitourinary complaints Musculoskeletal: Musculoskeletal: Reports no additional musculoskeletal complaints Integumentary/Breasts: Skin/Breast: Reports system reviewed and no additional complaints, except as docu Neurologic: Reports dizziness and Reports headache(s) Psychiatric: Psychiatric: Reports no additional psychiatric complaints Endocrine: Endocrine: Reports no additional endocrine complaints Hematologic/Lymphatic: Hematologic/Lymphatic: Reports no additional hematologic/lymphatic complaints Allergic/Immunologic: Allergic/Immunologic: Reports no additional allergic/immunologic complaints PMFSH Past Medical History Medical History AAA (abdominal aortic aneurysm) Arthritis Dementia Elevated PSA Hyperlipidemia Osteoarthritis Seizure Surgical History Surgical History H/O shoulder surgery Status post total knee replacement, 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) Family History Family History Mother Family history of malignant neoplasm of breast in first degree relative Father Stomach cancer Social History Social History Smoking packs per day: 2 Smoking cigarettes per day: 40.0 Years smoked: 27 Smoking pack-years: 54.00 Smoking status: Former smoker Tobacco type: cigarettes and smokeless tobacco Smokeless tobacco user: chewing tobacco Second hand tobacco smoke exposure: No Smoking end date: 06/22/89 Alcohol intake: current Drinks per week: 1 Substance use: never Gender identity (if verbalized by the patient): Male Spiritual care concerns: No Agree to blood products: No Exam Const: General: alert Orientation/consciousness: patient oriented x3 HENMT: Head: normal to inspection Eyes: Conjunctivae: conjunctivae normal Pupils: Equal, round and reactive pupils present EOM: EOMs intact bilaterally Neck: Neck: normal visual inspection Chest: Chest palpation & inspection: normal inspection of the chest Resp: Effort & Inspection: normal respiratory effort and not labo
[2020-03-21 13:34] LABS: Prothrombin Time 10.5 Seconds (9.64-11.0)
[2020-03-21 13:39] LABS: Alanine Aminotransferase 15 U/L (16-63); Albumin Level 3.5 g/dL (3.4-5.0); Alkaline Phosphatase 101 U/L (46-116); Anion Gap 8 mmol/L (8-16); Aspartate Amino Transferase 22 U/L (15-37); Bilirubin,Total 0.4 mg/dL (0.00-1.00); Blood Urea Nitrogen 13 mg/dL (7-18); Calcium 8.7 mg/dL (8.5-10.1); Carbon Dioxide 29 mmol/L (21-32); Chloride 104 mmol/L (98-108); Estimated CRCL calculation 64 ml/min; Estimated Glomerular Filt Rate > 60; Glucose 106 mg/dL (70-99); Osmolality Calculated 292 mOsm/kg (285-295); Potassium 3.7 mmol/L (3.5-5.1); Sodium 141 mmol/L (136-145); Total Protein 7.7 g/dL (6.4-8.2)
[2020-03-21 13:41] LABS: BNP 39 pg/mL (0-100); Troponin I < 0.02 ng/mL (0.00-0.056)
--- NOTE | 2020-03-21 19:00 | ECG_ITS ---
Measurements Intervals [place] Rate: 58 P: 43 [place]: 206 QRS: -35 QRSD: 122 T: -11 QT: 430 QTc: 426 Interpretive Statements SINUS BRADYCARDIA WITH FIRST DEGREE AV BLOCK LEFT AXIS DEVIATION RIGHT BUNDLE BRANCH BLOCK BASELINE WANDER- V1-V2 ABNORMAL ECG Electronically Signed On 03-22-2020 7:14:27 CDT by Tex Vila D.O.
[2020-03-21 19:48] LABS: Troponin I < 0.02 ng/mL (0.00-0.056)
--- NOTE | 2020-03-21 20:08 | PC.NURSE ---
Denies chest pain, no change in telemetry
--- NOTE | 2020-03-21 21:00 | PC.NURSE ---
No chest pain
[2020-03-21] MEDS: METOPROLOL TARTRATE 25 MG TABLET 12.5 MG PO (21:02)
[2020-03-21] MEDS: TICAGRELOR 90 MG TABLET PO (21:03)
--- NOTE | 2020-03-21 22:00 | PC.NURSE ---
No chest pain, resting quietly telemetry SR
[2020-03-22] VITALS: BP 120/71; PULSE 50; PULSE 54; RESP 18; TEMP 36.3; O2SAT 96
--- NOTE | 2020-03-22 00:11 | PC.NURSE ---
Up to void, no chest pain
[2020-03-22 02:05] LABS: Troponin I < 0.02 ng/mL (0.00-0.056)
--- NOTE | 2020-03-22 02:18 | PC.NURSE ---
No chest pain
[2020-03-22 04:00] VITALS: PULSE 58
--- NOTE | 2020-03-22 04:15 | PC.NURSE ---
no chest pain
[2020-03-22 04:22] VITALS: BP 120/75; PULSE 58; RESP 20; TEMP 36.8; O2SAT 96
--- NOTE | 2020-03-22 05:27 | PC.NURSE ---
NO chest pain, telemetry sinus timmy 48-56
--- NOTE | 2020-03-22 06:40 | PC.NURSE ---
Consulted with Dr. Contreras regarding Mr. Rodgers's denial of chest pain or shortness of breath. Dr Contreras said pt's telemetry can be discontinued at this time.
--- NOTE | 2020-03-22 07:45 | PM.SD ---
Same Day Admit/Disch: HPI History of Present Illness Chief complaint: chest pain Narrative: Wilian Rodgers is a 74 year old male Who had onset of pressure with a tingling radiation from the center of his chest while he was backing his truck up to his workshop. Patient states this has happened 3 other times before and this time he felt like he should get it checked out. He admits that he became little lightheaded and dizzy. He states there is no change to his pain between standing sitting laying down. Patient states he has an appointment with his marketing agent on the 04 of April. Charge nurse called the marketing agent's office to get an earlier date unfortunately his office is booked up and I was informed patient is going to need to keep that date. Patient will be able to make of close follow-up with his primary care provider Dr. Contreras. ER report states patient has taken his usual medication and that his symptoms were partially relieved with nitroglycerin. [facility] Past Medical History Medical History AAA (abdominal aortic aneurysm) Arthritis Dementia Elevated PSA Hyperlipidemia Osteoarthritis Seizure Surgical History Surgical History H/O shoulder surgery Status post total knee replacement, 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) Family History Family History Mother Family history of malignant neoplasm of breast in first degree relative Father Stomach cancer Social History Social History Smoking packs per day: 2 Smoking cigarettes per day: 40.0 Years smoked: 27 Smoking pack-years: 54.00 Smoking status: Never smoker Tobacco type: cigarettes and smokeless tobacco Smokeless tobacco user: chewing tobacco Second hand tobacco smoke exposure: No Smoking end date: 06/22/89 Alcohol intake: never Drinks per week: 1 Substance use: never Gender identity (if verbalized by the patient): Male Spiritual care concerns: No Agree to blood products: No Same Day Admit/Disch: Med Pre-admit Medications Home Medications Medication Instructions Recorded Confirmed Type rosuvastatin 20 mg tablet 40 mg PO DAILY tablet 05/26/19 03/21/20 History loratadine [Claritin] 10 mg PO DAILY 12/04/19 03/21/20 History aspirin 81 mg PO DAILY 12/12/19 03/21/20 History fluticasone propionate 2 spray INTRANASAL DAILY 03/21/20 03/21/20 History lutein 20 mg PO DAILY 03/21/20 03/21/20 History metoprolol tartrate 12.5 mg PO BID 03/21/20 03/21/20 History ticagrelor [Brilinta] 90 mg PO BID 03/21/20 03/21/20 History Exam Const: General: cooperative, comfortable, no acute distress, alert and awake Nutritional Appearance: average body habitus Orientation/consciousness: oriented to person, oriented to place and oriented to time Resp: Effort & Inspection: normal respiratory effort Auscultation: clear to auscultation bilaterally Cardio: Jugular venous distension: no JVD Rate: regular rate Rhythm: regular rhythm Heart sounds: S1 normal heart sound present and S2 normal heart sound present GI: GI Palp: No abdominal tenderness and Yes Soft to palpation Auscultation: normal bowel sounds Neuro: Cranial nerves: Yes CN's II-XII intact bilaterally ( Grossly intact) Cognition (Neuro): normal cognition Speech: normal speech Extrem: General: normal to inspection and no pedal edema DS: Data Data Completed and Pending Labs on day of discharge: Labs from last 24 hours 03/22/20 03/21/20 03/21/20 01:21 19:15 13:12 WBC RBC Hgb Hct MCV MCH MCHC RDW Plt Count MPV Immature Gran % (Auto) Neut % (Auto) Lymph % (Auto) [place] % (Auto) Eos % (Auto) Baso % (Auto) Lymph # (Auto) [place] # (Auto) Eos # (Auto) Baso # (Auto) Abs Immat Gran (auto) Absolute Neuts (auto)
[2020-03-22 08:03] VITALS: BP 122/75; PULSE 62; RESP 18; TEMP 36.3; O2SAT 96
--- NOTE | 2020-03-22 09:20 | PC.NURSE ---
AM meds taken by patient using his home meds. Meds are not scanned or documented as given because they will be charged if documented.
[2020-03-22] MEDS: LORATADINE 10 MG TABLET PO (09:27)
[2020-03-22] MEDS: ASPIRIN 81 MG ENTERIC TABLET PO (09:29)
--- NOTE | 2020-03-22 10:16 | PC.NURSE ---
Resting per bed without complaints. Denies chest pain. Waiting for FIELD CARE COORDINATOR and MD to visit. Hoping to go home.
--- NOTE | 2020-03-22 11:41 | PC.NURSE ---
Resting per bed without complaint. Call adamson in reach. Reminded to call with needs.
--- NOTE | 2020-03-22 13:40 | PC.NURSE ---
DISCHARGE INSTRUCTIONS GIVEN VERBALLY WELL IN WRITING TO PATIENT AND . BOTH VERBALIZED UNDERSTANDING. NO COMPLAINTS OR QUESTIONS ASKED. WALKED TO CARE WITH RN, SAFE EXIT OF HOSPITAL.
== END 2020-03-22 13:40 | disposition home or self-care (01) ==
LOC: CHSED 14:07 → CHS2ND 14:08
PROVIDERS: Admitting Provider Family Medicine; Emergency Provider Family Medicine; PCP Family Medicine; Visit Provider Family Medicine
DX: R07.9 Chest pain, unspecified (principal); I25.10 Atherosclerotic heart disease of native coronary artery without angina pectoris; I71.4 Abdominal aortic aneurysm, without rupture; I45.19 Other right bundle-branch block; R00.1 Bradycardia, unspecified; E78.5 Hyperlipidemia, unspecified; M19.90 Unspecified osteoarthritis, unspecified site; R97.20 Elevated prostate specific antigen [PSA]; Z96.652 Presence of left artificial knee joint; Z95.5 Presence of coronary angioplasty implant and graft; Z87.891 Personal history of nicotine dependence
CPT/HCPCS: 36415; 71045; 80053; 83880; 84484; 85025; 85610; 93005; 99285; A9270; G0378

== ENCOUNTER 2020-03-27 13:41 | Outpatient (CLI) | payer MEDICARE, SELFPAY ==
--- NOTE | 2020-03-30 08:02 | WPDHOLTEREM ---
Holter/Event Monitor Holter/Event Monitor Date of procedure: 03/27/20 Procedure Type: 48 hour holter monitor Indications: Chest pain Conclusion: 1. 48 hour holter on 03/27/20. 2. Predominant rhythm is sinus rhythm. HR range 47-130 bpm; average HR 70 bpm. 3. No premature supraventricular complexes. No supraventricular tachycardia. 4. There are 5 premature ventricular complexes. One 3 beat idioventricular rhythm at 73 bpm at 3:08 am. 5. No sinoatrial or atrioventricular blocks. No significant pauses greater than 2 seconds. 6. Patient reports symptoms of lightheadedness, tingling chest pain, tired, had spell, disoriented, nauseated, dizziness, shortness of breath, shaky, arm pain which demonstrates sinus rhythm, HR range 66-89 bpm.
== END 2020-03-27 13:42 | disposition home or self-care (01) ==
PROVIDERS: PCP Family Medicine; Visit Provider Family Medicine
DX: R07.9 Chest pain, unspecified (principal)
CPT/HCPCS: 99199

== ENCOUNTER 2020-04-05 08:51 | Outpatient (NON) | payer MEDICARE, SELFPAY ==
[2020-04-05 21:13] LABS: SARS-CoV-2 RNA PCR Negative
== END 2020-04-05 08:52 ==
PROVIDERS: PCP Family Medicine; Visit Provider Internal Medicine Cardiovascular Disease
DX: Z20.828 Contact with and (suspected) exposure to other viral communicable diseases (principal)
CPT/HCPCS: 87635; C9803; U0003

== ENCOUNTER 2020-04-18 07:51 | Outpatient (RCR) | payer MEDICARE, SELFPAY ==
[2020-04-16 00:01] VITALS: BP 115/76; PULSE 74; RESP 16; O2SAT 99; BMI 24.0
== END 2020-05-16 09:23 | disposition home or self-care (01) ==
PROVIDERS: PCP Family Medicine; Visit Provider Internal Medicine Cardiovascular Disease
DX: Z98.61 Coronary angioplasty status (principal)
CPT/HCPCS: 93798

== ENCOUNTER 2020-07-12 06:56 | Outpatient (CLI) | payer MEDICARE, SELFPAY ==
[2020-07-12 07:08] LABS: Basophils Absolute Auto 0.03 K/mm3 (0.00-0.10); Basophils Percent Auto 0.6 % (0.0-1.0); Eosinophils Absolute Auto 0.17 K/mm3 (0.02-0.50); Eosinophils Percent Auto 3.7 % (1.0-6.0); Hematocrit 42.9 % (37.0-46.0); Hemoglobin 14.3 g/dL (12.4-15.3); Immature Granulocyte Absolute 0.01 K/mm3 (0.00-0.00); Immature Granulocyte Percent A 0.2 % (0.0-0.0); Lymphocytes Absolute Auto 2.01 K/mm3 (1.10-4.50); Lymphocytes Percent Auto 43.2 % (18.0-42.0); Mean Corpuscular HGB Conc 33.3 g/dL (32.0-36.0); Mean Corpuscular Hemoglobin 31.8 pg (27.0-31.0); Mean Corpuscular Volume 95.3 fL (78.0-102.0); Monocytes Absolute Auto 0.52 K/mm3 (0.10-0.90); Monocytes Percent Auto 11.2 % (2.0-11.0); Neutrophils Absolute Auto 1.9 K/mm3 (1.7-7.2); Neutrophils Percent Auto 41.1 % (50.0-70.0); Platelet Count Result 229 K/mm3 (150-420); Red Cell Distribution Width 13.3 % (11.6-14.4); White Blood Count 4.7 K/mm3 (4.8-10.8)
[2020-07-12 08:17] LABS: Alanine Aminotransferase 28 U/L (16-63); Albumin Level 3.8 g/dL (3.4-5.0); Alkaline Phosphatase 81 U/L (46-116); Anion Gap 6 mmol/L (8-16); Aspartate Amino Transferase 29 U/L (15-37); Bilirubin,Total 0.4 mg/dL (0.00-1.00); Blood Urea Nitrogen 17 mg/dL (7-18); Calcium 8.9 mg/dL (8.5-10.1); Carbon Dioxide 31 mmol/L (21-32); Chloride 106 mmol/L (98-108); Cholesterol 127 mg/dL (0-200); Estimated Glomerular Filt Rate > 60; Glucose 129 mg/dL (70-99); HDL Direct 57 mg/dL (40-60); LDL Cholesterol Calculated 57 mg/dL (<130); Osmolality Calculated 299 mOsm/kg (285-295); Prostate Specific Antigen 2.7 ng/mL (< OR = 4.0); Sodium 143 mmol/L (136-145); Triglycerides 64 mg/dL (0-150)
== END 2020-07-12 06:57 | disposition home or self-care (01) ==
LOC: CHSLAB 06:59
PROVIDERS: PCP Nurse Practitioner Family; Visit Provider Nurse Practitioner Family
DX: I25.10 Atherosclerotic heart disease of native coronary artery without angina pectoris (principal); E78.5 Hyperlipidemia, unspecified; R97.20 Elevated prostate specific antigen [PSA]; R73.09 Other abnormal glucose
CPT/HCPCS: 36415; 80053; 80061; 83036; 84153; 85025

== ENCOUNTER 2020-07-13 08:31 | Outpatient (CLI) | payer MEDICARE, SELFPAY ==
--- NOTE | 2020-07-13 10:50 | WPDPFTINT ---
PFT Interpretation PFT Interpretation: DOS: 07/13/2020 REQUESTING: Rika Mike NP REASON FOR TESTING: shortness of breath PULMONARY FUNCTION TESTS Results are reliable and reproducible. Spirometry: FEV1 is 104%, FVC 104%, FEV1/FVC is 100%. There is an 8% increased in the FVC after bronchodilator which is not significant statistically. Lung volumes: Total lung capacity is 95% normal. Residual volume is 79%. RV/TLC is within the normal range. No air trapping. Airway resistance 139% minimally elevated. Diffusion: DLCO 104% normal. Flow volume loop: Normal. IMPRESSION: Normal spirometry, lung volumes and diffusion. Minimal response to bronchodilator. The offshore wind turbine technician noted that the patient had multiple presyncopal episodes during the forced maneuvers. He stated that he had been having dizziness recently. Marisel Rubio MD
== END 2020-07-13 08:32 | disposition home or self-care (01) ==
LOC: CHSCARD 08:34
PROVIDERS: PCP Nurse Practitioner Family; Visit Provider Nurse Practitioner Family
DX: R06.02 Shortness of breath (principal)
CPT/HCPCS: 94060; 94726; 94729

== ENCOUNTER 2020-07-19 09:03 | Observation (INO) | payer MEDICARE, SELFPAY ==
[2020-07-19] VITALS (8 sets, daily range): BP systolic 106–136; BP diastolic 73–94; PULSE 59–67; RESP 18–77; TEMP 36.2–36.7; O2SAT 96–100; BMI 25.7
--- NOTE | ~2020-07-19 | XR_ITS ---
EXAMINATION: XR chest 2V DATE: 07/19/2020 10:04 INDICATION: Acute chest pain. Bilateral arm pain. TECHNIQUE: PA and lateral views of the chest were obtained. COMPARISON: Chest radiograph dated 03/21/2020 FINDINGS: Small calcified nodule in the right lower lobe and calcified right hilar lymph nodes consistent with old granulomatous disease. No new airspace opacities, pulmonary edema, pleural effusion or pneumothor ax. The cardiomediastinal silhouette is normal. Coronary artery stenting. Tortuous thoracic aorta. Mi ld thoracic spondylosis. IMPRESSION: 1. No acute cardiopulmonary disease. Reviewed, dictated and finalized at location B. UTER FORWARDING SYSTEM MARKUP CLERK
--- NOTE | ~2020-07-19 | CT_ITS ---
EXAMINATION: CT brain wo con EXAM DATE: 07/20/2020 10:04 INDICATION: Dizziness, headache, hypertension. TECHNIQUE: Spiral CT of the head was performed without contrast. Axial, coronal and sagittal images were reviewed. The dose-length product (DLP) for this examination was 605.33 mGy-cm. The exposure w as tailored according to patient size, and iterative reconstruction (ASIR) was used as additional dos e reduction technique. Comparison is made to prior examination from 04/19/2012. FINDINGS: There is no acute intraparenchymal hemorrhage. No evidence of intraparenchymal brain mass lesion. No evidence of acute infarction. Please note that initial head CT has limited sensitivity f or small or acute infarctions. There is mild periventricular and subcortical hypodensity, nonspecific but probably related to small vessel ischemic disease. There is mild prominence of the sulci and v entricles related to cerebral atrophy. There is intracranial carotid arteriosclerosis. There are n o extra-axial collections. There is no mass effect or midline shift. Patient has had left-sided ocu lar lens surgery. Soft tissue is unremarkable. The visualized sinuses and mastoid air cells are well aerated. IMPRESSION: 1. No acute intracranial findings. 2. Chronic age related findings. Reviewed, dictated and finalized at location A. OLE OPERATOR
--- NOTE | 2020-07-19 09:35 | ECG_ITS ---
Measurements Intervals [place] Rate: 76 P: 60 ME: 189 QRS: -55 QRSD: 104 T: 25 QT: 362 QTc: 409 Interpretive Statements SINUS RHYTHM INCOMPLETE RIGHT BUNDLE BRANCH BLOCK LEFT ANTERIOR FASCICULAR BLOCK BASELINE WANDER- II, III ABNORMAL ECG Electronically Signed On 07-19-2020 11:46:50 AUTOMATIC DISPENSER MECHANIC by Tex Vila D.O.
[2020-07-19 09:41] LABS: Basophils Absolute Auto 0.04 K/mm3 (0.00-0.10); Basophils Percent Auto 0.7 % (0.0-1.0); Eosinophils Absolute Auto 0.14 K/mm3 (0.02-0.50); Eosinophils Percent Auto 2.5 % (1.0-6.0); Hematocrit 42.7 % (37.0-46.0); Hemoglobin 14.3 g/dL (12.4-15.3); Immature Granulocyte Absolute 0.01 K/mm3 (0.00-0.00); Immature Granulocyte Percent A 0.2 % (0.0-0.0); Lymphocytes Absolute Auto 1.64 K/mm3 (1.10-4.50); Lymphocytes Percent Auto 29.3 % (18.0-42.0); Mean Corpuscular HGB Conc 33.5 g/dL (32.0-36.0); Mean Corpuscular Hemoglobin 31.7 pg (27.0-31.0); Mean Corpuscular Volume 94.7 fL (78.0-102.0); Mean Platelet Volume 9.4 fl (8.7-11.0); Monocytes Absolute Auto 0.63 K/mm3 (0.10-0.90); Monocytes Percent Auto 11.3 % (2.0-11.0); Neutrophils Absolute Auto 3.1 K/mm3 (1.7-7.2); Platelet Count Result 227 K/mm3 (150-420); Red Blood Count 4.51 M/mm3 (4.70-6.10); Red Cell Distribution Width 13.1 % (11.6-14.4); White Blood Count 5.6 K/mm3 (4.8-10.8)
[2020-07-19 09:56] LABS: D Dimer 0.38 mg/L (0.19-0.50); Partial Thromboplastin Time 26.5 SEC (23.90-30.70); Prothrombin Time 10.8 Seconds (9.50-12.10)
[2020-07-19 10:02] LABS: Alanine Aminotransferase 25 U/L (16-63); Albumin Level 3.7 g/dL (3.4-5.0); Alkaline Phosphatase 79 U/L (46-116); Anion Gap 8 mmol/L (8-16); Aspartate Amino Transferase 20 U/L (15-37); Bilirubin,Total 0.4 mg/dL (0.00-1.00); Blood Urea Nitrogen 17 mg/dL (7-18); Calcium 8.9 mg/dL (8.5-10.1); Carbon Dioxide 29 mmol/L (21-32); Chloride 105 mmol/L (98-108); Estimated Glomerular Filt Rate > 60; Glucose 87 mg/dL (70-99); Osmolality Calculated 294 mOsm/kg (285-295); Potassium 3.9 mmol/L (3.5-5.1); Sodium 142 mmol/L (136-145)
[2020-07-19 10:04] LABS: BNP 13.5 pg/mL (0-100); Lipase 131 U/L (73-393); Troponin I 8.7 ng/L (0.00-60.4)
--- NOTE | 2020-07-19 10:15 | ED.CHESTPAIN ---
HPI - Chest Pain General Chief Complaint: Chest Pain Stated Complaint: SENT FROM CARDIAC REHAB Source: patient Mode of arrival: wheelchair Limitations: no limitations History of Present Illness HPI narrative: This is a 74-year-old male with history of coronary artery disease with stents that were placed approximately 6 to 7 months ago, while in cardiac rehab was having chest pain radiating into his arms bilaterally currently had subsided down to about a 1/10 with no nausea vomiting no shortness of breath no diaphoresis. The patient follows with cardiology had stents placed at [facility], currently on Plavix and aspirin. Patient denies fever chills no abdominal pain no diarrhea constipation no flank pain. MD complaint: chest pain and chest heaviness Pertinent past history: coronary artery disease Onset (ago): hour(s) Timing of current episode: episodic Prior episodes: Yes Onset: during exertion Pain location: substernal Pain radiation: right arm and left arm Severity: mild Quality: tightness Relieving factors: rest Exacerbating factors: nothing Related Data Home Medications Medication Instructions Recorded Confirmed aspirin 81 mg PO DAILY 12/12/19 07/19/20 fluticasone propionate 2 spray INTRANASAL DAILY 03/21/20 07/19/20 lutein 20 mg PO DAILY 03/21/20 07/19/20 metoprolol tartrate 12.5 mg PO BID 03/21/20 07/19/20 Allergies Allergy/AdvReac Type Severity Reaction Status Date / Time Penicillins Allergy Intermediate Rash Verified 07/17/20 14:18 Review of Systems Review of Systems: All systems reviewed & are unremarkable except as noted in HPI and below PMFSH Past Medical History Medical History (Updated 07/19/20 @ 10:27 by Avtar Culp MD) AAA (abdominal aortic aneurysm) Arthritis Dementia Elevated PSA Hyperlipidemia Osteoarthritis Seizure Surgical History Surgical History H/O shoulder surgery Status post total knee replacement, 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) Family History Family History Mother Family history of malignant neoplasm of breast in first degree relative Father Stomach cancer Alcoholism Social History Social History Smoking packs per day: 2 Smoking cigarettes per day: 40.0 Years smoked: 27 Smoking pack-years: 54.00 Smoking status: Former smoker Tobacco type: cigarettes and smokeless tobacco Second hand tobacco smoke exposure: No Smoking end date: 06/22/89 Alcohol intake: never Drinks per week: 1 Substance use: never Gender identity (if verbalized by the patient): Male Spiritual care concerns: No Agree to blood products: No Exam Const: General: no acute distress and alert Orientation/consciousness: patient oriented x3 HENMT: Head: normal to inspection Eyes: Conjunctivae: conjunctivae normal Pupils: Equal, round and reactive pupils present EOM: EOMs intact bilaterally Neck: Neck: normal visual inspection, no lymphadenopathy and no meningeal signs Chest: Chest palpation & inspection: normal inspection of the chest Resp: Effort & Inspection: normal respiratory effort Cardio: Rate: regular rate Rhythm: regular rhythm GI: Auscultation: normal bowel sounds : Testes: Testes normal Urinary Catheter: Urinary Catheter: patent and draining Skin: General skin exam: normal color Rashes: no rashes Neuro: General: patient oriented x3 Extrem: General: normal to inspection Psych: Mental Status: mental status grossly normal Affect: normal affect and Anxious affect present Attitude: cooperative Course Course Emergency Course: Reassessment patient patient is comfortable currently rating his pain at a 1/10 with no shortness of breath no nausea vomiting radiation of his pain has subsided, reviewed x-ray findings EKG and laboratory findings with the patient which were
--- NOTE | 2020-07-19 10:55 | ADMGEN ---
This patient, Wilian Rodgers, was admitted to 2nd Floor Room 203-2. Patient/family oriented to hospital policies and general routines including ID bracelet, bed and alarms, visiting hours, pain management, procedures, bathroom and other care routines, personal items, smoking policy, room service/diet, and visiting hours. Information on how to activate the Rapid Response Team has been discussed. Patient/Family are encouraged to report perceived risks to care and to ask questions if they do not understand what they are told or what they should do.
--- NOTE | 2020-07-19 11:54 | PM.IMHP ---
H&P: HPI History of Present Illness Date/Time: 07/19/20 11:54 Chief Complaint: Chest pain Narrative: Wilian Rodgers is a 74 year old male that presented to our ED while at the cardiac rehab program with chest pain.PMHx AAA, arthritis, dementia, elevated PSA, hyperlipidemia, osteoarthritis seizures, CAD with stent placements. Patient notes that while he was on a step machine he started to experience left-sided chest pain that he describes as a sharp pain that radiated to the right side of his back that lasted approximately 20 minutes. Patient notes that when he sat down his pain was relieved. Patient is being followed by Dr. Humphries cargo checker and is currently on Plavix and aspirin. At the time of assessment his chest pains have resolved he still feels a little chest discomfort and fatigue. Patient's labs including troponins are within normal limits, EKG sinus rhythm with a rate of 76, chest x-ray unremarkable Review of Systems Review of Systems: All systems reviewed & are unremarkable except as noted in HPI and below (10 point system review) [facility] Past Medical History Medical History (Updated 07/19/20 @ 10:27 by Avtar Culp MD) AAA (abdominal aortic aneurysm) Arthritis Dementia Elevated PSA Hyperlipidemia Osteoarthritis Seizure Surgical History Surgical History H/O shoulder surgery Status post total knee replacement, 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) Family History Family History Mother Family history of malignant neoplasm of breast in first degree relative Father Stomach cancer Alcoholism Social History Social History Smoking packs per day: 2 Smoking cigarettes per day: 40.0 Years smoked: 27 Smoking pack-years: 54.00 Smoking status: Former smoker Tobacco type: cigarettes Smokeless tobacco user: chewing tobacco Second hand tobacco smoke exposure: No Smoking end date: 06/22/89 Alcohol intake: former Drinks per week: 7 Substance use: never Gender identity (if verbalized by the patient): Male Spiritual care concerns: No Agree to blood products: No Meds Home Medications and Allergies Home Medications Medication Instructions Recorded Confirmed Type aspirin 81 mg PO DAILY 12/12/19 07/19/20 History fluticasone propionate 2 spray INTRANASAL DAILY 03/21/20 07/19/20 History lutein 20 mg PO DAILY 03/21/20 07/19/20 History metoprolol tartrate 12.5 mg PO BID 03/21/20 07/19/20 History albuterol sulfate 90 mcg/actuation 1 puff INHALATION Q4H PRN #8 g 07/11/20 07/19/20 Rx aerosol inhaler montelukast 10 mg tablet 10 mg PO DAILY #30 tablet 07/11/20 07/19/20 Rx azelastine 137 mcg (0.1 %) nasal 1 spray INTRANASAL Q12H #30 ml 07/18/20 07/19/20 Rx spray aerosol Allergies Allergy/AdvReac Type Severity Reaction Status Date / Time Penicillins Allergy Intermediate Rash Verified 07/17/20 14:18 Vital Signs Vital Signs - 24 hr 07/19/20 09:05 07/19/20 10:45 Temperature 98.0 F Pulse Rate 65 Respiratory Rate 77 H Blood Pressure 136/94 H 120/84 Pulse Oximetry 100 99 Exam Narrative: Exam Narrative: GENERAL: This is a well-nourished, well-developed patient, in no apparent distress. HEAD: normocephalic, atraumatic. EYES: PERRL. Sclera clear/white. Vision is grossly intact. EARS: External ears normal, auditory canals clear and without drainage, TMs normal without perforation. Hearing grossly intact. NOSE: External nose normal with no obvious nasal discharge, nares without redness, no rhinorrhea. THROAT: Mucous membranes moist, posterior pharynx clear. NECK: Neck supple, non-tender without lymphadenopathy, masses or thyromegaly. CARDIOVASCULAR: Regular rate and rhythm without murmurs, gallops, or rubs. RESPIRATORY: Clear to auscultation. Breath sounds equal bilaterally. No wheezes, rales, or rhonchi. GASTROINTESTINAL
[2020-07-19 15:49] LABS: Troponin I 6.6 ng/L (0.00-60.4)
[2020-07-19] MEDS: METOPROLOL TARTRATE 25 MG TABLET 12.5 MG PO (20:19)
[2020-07-20] VITALS (7 sets, daily range): BP systolic 102–124; BP diastolic 76–95; PULSE 50–94; RESP 18; TEMP 36.6–37; O2SAT 94–97
--- NOTE | 2020-07-20 01:35 | PC.NURSE ---
Patient denies any c/o CP or pressure. No radiating pain. Continues on telemetry at NSR, HR 64
--- NOTE | 2020-07-20 03:20 | PC.NURSE ---
Patient denies any c/o CP or pressure. No radiating pain. Continues on telemetry at Sinus timmy at 50. Sleeping well at this time.
[2020-07-20 05:44] LABS: Basophils Absolute Auto 0.04 K/mm3 (0.00-0.10); Basophils Percent Auto 0.7 % (0.0-1.0); Eosinophils Absolute Auto 0.16 K/mm3 (0.02-0.50); Eosinophils Percent Auto 2.9 % (1.0-6.0); Hematocrit 42.9 % (37.0-46.0); Immature Granulocyte Absolute 0.01 K/mm3 (0.00-0.00); Immature Granulocyte Percent A 0.2 % (0.0-0.0); Lymphocytes Absolute Auto 2.16 K/mm3 (1.10-4.50); Lymphocytes Percent Auto 39.8 % (18.0-42.0); Mean Corpuscular HGB Conc 32.6 g/dL (32.0-36.0); Mean Corpuscular Volume 94.9 fL (78.0-102.0); Mean Platelet Volume 9.5 fl (8.7-11.0); Monocytes Absolute Auto 0.56 K/mm3 (0.10-0.90); Monocytes Percent Auto 10.3 % (2.0-11.0); Neutrophils Absolute Auto 2.5 K/mm3 (1.7-7.2); Neutrophils Percent Auto 46.1 % (50.0-70.0); Platelet Count Result 218 K/mm3 (150-420); Red Blood Count 4.52 M/mm3 (4.70-6.10); White Blood Count 5.4 K/mm3 (4.8-10.8)
[2020-07-20 06:03] LABS: Alanine Aminotransferase 24 U/L (16-63); Albumin Level 3.4 g/dL (3.4-5.0); Alkaline Phosphatase 75 U/L (46-116); Anion Gap 9 mmol/L (8-16); Aspartate Amino Transferase 21 U/L (15-37); Bilirubin,Total 0.5 mg/dL (0.00-1.00); Blood Urea Nitrogen 15 mg/dL (7-18); Calcium 8.4 mg/dL (8.5-10.1); Carbon Dioxide 27 mmol/L (21-32); Chloride 104 mmol/L (98-108); Estimated CRCL calculation 73 ml/min; Estimated Glomerular Filt Rate > 60; Glucose 86 mg/dL (70-99); Magnesium 1.9 mg/dL (1.8-2.4); Osmolality Calculated 289 mOsm/kg (285-295); Potassium 3.9 mmol/L (3.5-5.1); Sodium 140 mmol/L (136-145); Total Protein 6.5 g/dL (6.4-8.2); Troponin I 7.5 ng/L (0.00-60.4)
--- NOTE | 2020-07-20 06:03 | PC.NURSE ---
Patient denies any c/o CP or pressure. No radiating pain. Continues on telemetry at NSR, HR 68.
--- NOTE | 2020-07-20 07:26 | ECG_ITS ---
Measurements Intervals [place] Rate: 64 P: 66 FL: 201 QRS: -52 QRSD: 108 T: 37 QT: 397 QTc: 411 Interpretive Statements SINUS RHYTHM BORDERLINE AV CONDUCTION DELAY INCOMPLETE RIGHT BUNDLE BRANCH BLOCK LEFT ANTERIOR FASCICULAR BLOCK ABNORMAL ECG Electronically Signed On 07-20-2020 8:00:59 [employer]PERVISOR [employer] by Tex Vila D.O.
--- NOTE | 2020-07-20 07:32 | PC.NURSE ---
cardiopulmonary notified of order for EKG
[2020-07-20] MEDS: ISOSORBIDE MONONITRATE 30 MG TAB.ER.24H PO (08:57)
[2020-07-20] MEDS: ROSUVASTATIN 10 MG TABLET 20 MG PO (08:57)
[2020-07-20] MEDS: ASPIRIN 81 MG CHEWABLE TABLET PO (08:57)
[2020-07-20] MEDS: METOPROLOL TARTRATE 25 MG TABLET 12.5 MG PO (08:57)
[2020-07-20] MEDS: MONTELUKAST SODIUM 10 MG TABLET PO (08:57)
[2020-07-20] MEDS: CLOPIDOGREL BISULFATE 75 MG TABLET PO (08:57)
--- NOTE | 2020-07-20 11:05 | P.DS_ITS ---
DS: Admitting Diagnosis Admitting Diagnosis Admitting Diagnosis: Chest pain DS: Discharge Diagnosis Discharge Diagnosis (1) Shortness of breath: Code(s): R06.02 - Shortness of breath Status: Acute Assessment and Plan: * Chronic per patient * Patient with a previous history of smoking * Pulmonary function test is as follows Total lung capacity is 95% normal. Residual volume is 79%. RV/TLC is within the normal range. No air trapping. Airway resistance 139% minimally elevated. * Continue inhalers * According to cardiology note patient reported shortness of breathing on 05/02/2020 which resolved after switching ticagrelor to clopidogrel (2) Chest pain: Code(s): R07.9 - Chest pain, unspecified Status: Acute Assessment and Plan: * Not believed to be cardiac with * EKG sinus rhythm * Troponin negative x3 * Patient has a follow-up appointment with his pipeline superintendent on July 23 * Patient with a history of stents placement 6 to 7 months ago * Patient followed by pipeline superintendent Dr. Jones * MPI 10/10/19 negative for ischemic * MPI indicated large size severe inferolateral perfusion defect LVEF 64% * Diagnostic cardiac cath completed on 12/13/2019 at that time he was transferred to [facility] for high risk PCI * 12/15/2019 he underwent PTCA/stenting (3) Coronary disease: Code(s): I25.10 - Atherosclerotic heart disease of [place] coronary artery without angina pectoris Status: Acute Assessment and Plan: * Continue aspirin 81 mg and Plavix 75 mg daily * Patient followed up with pipeline superintendent Dr. Vaz (4) Angina of effort: Code(s): I20.8 - Other forms of angina pectoris Status: Acute Assessment and Plan: Refractory chest pain (5) Dementia: Code(s): F03.90 - Unspecified dementia without behavioral disturbance Status: Acute Assessment and Plan: * Causes long-term memory loss (6) Hyperlipidemia: Code(s): E78.5 - Hyperlipidemia, unspecified Status: Acute Assessment and Plan: * Not on any home medication * Follow-up with PCP (7) Elevated PSA: Code(s): R97.20 - Elevated prostate specific antigen [PSA] Status: Acute Assessment and Plan: * Not on any home medication * Follow-up with PCP (8) Osteoarthritis: Code(s): M19.90 - Unspecified osteoarthritis, unspecified site Status: Acute (9) AAA (abdominal aortic aneurysm): Code(s): I71.4 - Abdominal aortic aneurysm, without rupture Status: Acute Assessment and Plan: * Stable 3.3 cm fusiform abdominal aortic aneurysm. 11/21/19 (10) Dizziness: Code(s): R42 - Dizziness and giddiness Status: Acute Assessment and Plan: * Possibly secondary to Medicaid versus cardiac history * Orthostatics blood pressure readings completed no unusual findings * EKG sinus rhythm * CT of the head unremarkable * Patient will follow up with his pipeline superintendent on July 23 * Echo completed on 04/04/2020 impaired diastolic ejection fraction is 65%, Mild tricuspid regurgitation, aortic root is mildly dilated. DS: Summary Hospital Course Hospital Course: Wilian Rodgers is a 74 year old male that presented to our ED while at the cardiac rehab program with chest pain.PMHx AAA, arthritis, dementia, elevated PSA, hyperlipidemia, osteoarthritis seizures, CAD with stent placements. Patient noted that while he was on a step machine he started to experience left-sided chest pain that he describes as a sharp pain that radiated to the right side of his jose
--- NOTE | 2020-07-20 11:05 | PM.DS ---
DS: Admitting Diagnosis Admitting Diagnosis Admitting Diagnosis: Chest pain DS: Discharge Diagnosis Discharge Diagnosis (1) Shortness of breath: Code(s): R06.02 - Shortness of breath Status: Acute Assessment and Plan: Chronic per patient Patient with a previous history of smoking Pulmonary function test is as follows Total lung capacity is 95% normal. Residual volume is 79%. RV/TLC is within the normal range. No air trapping. Airway resistance 139% minimally elevated. Continue inhalers According to cardiology note patient reported shortness of breathing on 05/02/2020 which resolved after switching ticagrelor to clopidogrel (2) Chest pain: Code(s): R07.9 - Chest pain, unspecified Status: Acute Assessment and Plan: Not believed to be cardiac with EKG sinus rhythm Troponin negative x3 Patient has a follow-up appointment with his precipitator operator on July 23 Patient with a history of stents placement 6 to 7 months ago Patient followed by precipitator operator Dr. Jones MPI 10/10/19 negative for ischemic MPI indicated large size severe inferolateral perfusion defect LVEF 64% Diagnostic cardiac cath completed on 12/13/2019 at that time he was transferred to [facility] for high risk PCI 12/15/2019 he underwent PTCA/stenting (3) Coronary disease: Code(s): I25.10 - Atherosclerotic heart disease of [place] coronary artery without angina pectoris Status: Acute Assessment and Plan: Continue aspirin 81 mg and Plavix 75 mg daily Patient followed up with precipitator operator Dr. Vaz (4) Angina of [place]: Code(s): I20.8 - Other forms of angina pectoris Status: Acute Assessment and Plan: Refractory chest pain (5) Dementia: Code(s): F03.90 - Unspecified dementia without behavioral disturbance Status: Acute Assessment and Plan: Causes long-term memory loss (6) Hyperlipidemia: Code(s): E78.5 - Hyperlipidemia, unspecified Status: Acute Assessment and Plan: Not on any home medication Follow-up with PCP (7) Elevated PSA: Code(s): R97.20 - Elevated prostate specific antigen [PSA] Status: Acute Assessment and Plan: Not on any home medication Follow-up with PCP (8) Osteoarthritis: Code(s): M19.90 - Unspecified osteoarthritis, unspecified site Status: Acute (9) AAA (abdominal aortic aneurysm): Code(s): I71.4 - Abdominal aortic aneurysm, without rupture Status: Acute Assessment and Plan: Stable 3.3 cm fusiform abdominal aortic aneurysm. 11/21/19 (10) Dizziness: Code(s): R42 - Dizziness and giddiness Status: Acute Assessment and Plan: Possibly secondary to Medicaid versus cardiac history Orthostatics blood pressure readings completed no unusual findings EKG sinus rhythm CT of the head unremarkable Patient will follow up with his precipitator operator on July 23 Echo completed on 04/04/2020 impaired diastolic ejection fraction is 65%, Mild tricuspid regurgitation, aortic root is mildly dilated. DS: Summary Hospital Course Hospital Course: Wilian Rodgers is a 74 year old male that presented to our ED while at the cardiac rehab program with chest pain.PMHx AAA, arthritis, dementia, elevated PSA, hyperlipidemia, osteoarthritis seizures, CAD with stent placements. Patient noted that while he was on a step machine he started to experience left-sided chest pain that he describes as a sharp pain that radiated to the right side of his back that lasted approximately 20 minutes. Patient notes that when he sat down his chest pain resolved. Patient is being followed by Dr. Jones, precipitator operator and is currently on Plavix and aspirin. This a.m. patient complains chest discomfort across his chest. Patient's labs including troponin x4 negative, EKG x2 sinus rhythm with a rate of 76, chest x-ray unremarkable, CT unremarkable. Contact patient's cardiology office medic
--- NOTE | 2020-07-24 14:44 | PC.NURSE ---
Unable to contact for discharge call back.
== END 2020-07-20 11:45 | disposition home or self-care (01) ==
LOC: CHSED 10:27 → CHS2ND 10:41
PROVIDERS: Nurse Practitioner; Admitting Provider Emergency Medicine; Emergency Provider Emergency Medicine; PCP Family Medicine; Visit Provider Emergency Medicine
DX: R07.9 Chest pain, unspecified (principal); I25.118 Atherosclerotic heart disease of native coronary artery with other forms of angina pectoris; E78.5 Hyperlipidemia, unspecified; M19.90 Unspecified osteoarthritis, unspecified site; I71.4 Abdominal aortic aneurysm, without rupture; R97.20 Elevated prostate specific antigen [PSA]; R06.02 Shortness of breath; R56.9 Unspecified convulsions; F03.90 Unspecified dementia, unspecified severity, without behavioral disturbance, psychotic disturbance, mood disturbance, and anxiety; Z79.02 Long term (current) use of antithrombotics/antiplatelets; Z95.5 Presence of coronary angioplasty implant and graft; Z96.652 Presence of left artificial knee joint; Z87.891 Personal history of nicotine dependence; Z80.0 Family history of malignant neoplasm of digestive organs
CPT/HCPCS: 36415; 70450; 71046; 80053; 83690; 83735; 83880; 84484; 85025; 85380; 85610; 85730; 93005; 99285; A9270; G0378

== ENCOUNTER 2020-07-24 07:53 | Outpatient (CLI) | payer MEDICARE, SELFPAY ==
--- NOTE | ~2020-07-24 | US_ITS ---
EXAMINATION: US carotid duplex BI DATE: 07/24/2020 08:38 INDICATION: Carotid artery disease. TECHNIQUE: Grayscale, color Doppler, and pulsed Doppler images of the cervical carotid arteries were obtained. The degree of vessel stenosis is placed in one of the following categories: normal, <50%, 5 0-69%, >=70% but less than near-occlusion, near-occlusion, or total occlusion. Note that percent sten osis relative to normal distal artery lumen diameter is indirectly measured from velocity measurement s as described by Gualberto, et al. Radiology 2003; 229:340-346. COMPARISON: None. FINDINGS: RIGHT: The right common carotid artery (CCA) peak systolic velocity (PSV) is 76 cm/s. The right internal car otid artery (ICA) PSV is 66 cm/s. The right ICA end-diastolic velocity (EDV) is 14 cm/s. The right IC A/CCA PSV ratio is 0.9. Grayscale and color Doppler images yield an estimate of <50% diameter reducti on from plaque in the ICA. There is antegrade flow in the right vertebral artery. LEFT: The left CCA PSV is 74 cm/s. The left ICA PSV is 61 cm/s. The left ICA EDV is 23 cm/s. The left ICA/C CA PSV ratio is 0.8. Grayscale and color Doppler images yield an estimate of <50% diameter reduction from plaque in the ICA. There is antegrade flow in the left vertebral artery. IMPRESSION: 1. <50% stenosis in the right internal carotid artery. 2. <50% stenosis in the left internal carotid artery. Reviewed, dictated and finalized at location A. [employer]
== END 2020-07-24 07:54 | disposition home or self-care (01) ==
LOC: CHSIMG 07:56
PROVIDERS: PCP Family Medicine; Visit Provider Nurse Practitioner Adult Health
DX: Z48.812 Encounter for surgical aftercare following surgery on the circulatory system (principal); I25.118 Atherosclerotic heart disease of native coronary artery with other forms of angina pectoris
CPT/HCPCS: 93880

== ENCOUNTER → 2020-08-21 00:45 | Outpatient (CLI) | payer MEDICARE, SELFPAY ==
[2020-08-21 19:08] LABS: SARS-CoV-2 RNA PCR Negative
== END ==
PROVIDERS: PCP Family Medicine; Visit Provider Otolaryngology
DX: Z01.812 Encounter for preprocedural laboratory examination (principal); Z20.822 Contact with and (suspected) exposure to COVID-19
CPT/HCPCS: C9803; U0003; U0005

== ENCOUNTER 2020-08-23 08:00 | Outpatient (RCR) | payer SELFPAY ==
[2020-05-16 09:24] VITALS: BP 115/76; PULSE 74; RESP 16; O2SAT 99; BMI 24.0
--- NOTE | 2020-07-19 08:50 | PCCPR ---
PT IN PHASE 3 CARDIAC REHAB, WAS WORKING ON Novavax AB, 9MIN INTO EXERCISE PT BEGAN TO COMPLAIN OF CHEST PAIN. STATES MIDSTERNAL PRESSURE 4/10, STATES GOES THROUGH TO HIS BACK. PT DIAPHORETIC, HOWEVER JUST COMPLETED TREADMILL EXERCISE AND DOES SWEAT WITH EXERCISE, DOES ENDORSE SHORTNESS OF BREATH, SPO2 97%, B/P 138/74. REPEAT, 135/87, PT PLACED ON TELEMETRY, NOTED SINUS RHYTHM @ 93bpm, NO ADVERSE ECTOPY. CHEST PAIN SUBSIDED AFTER 2 MIN, B/P 126/81 PT STATES NOW HE JUST FEELS DIZZY AND WEAK . ORDERED STAT EKG WHEN PATIENT STATES CHEST PAIN RETURNING, MILD, HOWEVER NOW IT IS RADIATING DOWN BOTH ARMS. PT TRANSFERRED TO ER FOR FURTHER EVALUATION. PT IVY WAS MADE AWARE AND REQUESTS PHONE UPDATES. DR. CRESPO SENT NOTIFICATION VIA FAX.
--- NOTE | 2020-07-19 11:00 | PCCPR ---
PT IVY UPDATED WITH PATIENT STATUS AND PLAN FOR ADMISSION TO ROOM 203 FOR FURTHER WORK UP AND OBSERVATION. PROVIDED WITH PT ROOM PHONE NUMBER. PT STATES HE DOES NOT NEED ANYTHING TO BE BROUGHT FROM HOME, IVY AWARE.
== END 2020-08-29 10:50 | disposition home or self-care (01) ==
LOC: CHSCPRIII 08:00
PROVIDERS: PCP Family Medicine; Visit Provider Internal Medicine Cardiovascular Disease
DX: Z98.61 Coronary angioplasty status (principal)
CPT/HCPCS: 99199

== ENCOUNTER 2020-08-24 00:15 | Day surgery (SDC) | payer MEDICARE, SELFPAY ==
[2020-08-16 09:31] VITALS: BMI 25.7
--- NOTE | 2020-08-23 14:16 | PM.IMHP ---
H&P: HPI History of Present Illness Date/Time: 08/23/20 14:16 Chief Complaint: Bilateral eustachian tube dysfunction Narrative: Wilian Rodgers is a 74 year old male Who presents for planned surgical procedure. Reports no new symptoms or changes in his medical history. Review of Systems Constitutional: Constitutional: Denies fatigue, Denies fever(s) and Denies lethargy Eyes: Eyes: Denies blurry vision and Denies change in vision ENT: Reports as per HPI Cardiovascular: Cardiovascular: Denies chest pain Respiratory: Respiratory: Denies cough Endocrine: Endocrine: Denies fatigue Hematologic/Lymphatic: Hematologic/Lymphatic: Denies easy bleeding, Denies easy bruising and Denies lymphadenopathy Allergic/Immunologic: Allergic/Immunologic: Denies seasonal rhinorrhea [facility] Past Medical History Medical History AAA (abdominal aortic aneurysm) Arthritis Dementia Elevated PSA Hyperlipidemia Osteoarthritis Seizure Surgical History Surgical History H/O shoulder surgery Status post total knee replacement, 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) Family History Family History Mother Family history of malignant neoplasm of breast in first degree relative Father Stomach cancer Alcoholism Social History Social History Smoking packs per day: 2 Smoking cigarettes per day: 40.0 Years smoked: 40 Smoking pack-years: 80.00 Smoking status: Former smoker Tobacco type: cigarettes and smokeless tobacco Smokeless tobacco user: chewing tobacco Second hand tobacco smoke exposure: No Smoking end date: 12/21/99 Alcohol intake: current Drinks per week: 7 Substance use: never Additional living arrangements comments: Gender identity (if verbalized by the patient): Male Spiritual care concerns: No Agree to blood products: No Meds Home Medications and Allergies Home Medications Medication Instructions Recorded Confirmed Type fluticasone propionate 2 spray INTRANASAL DAILY 03/21/20 08/16/20 History lutein 20 mg PO DAILY 03/21/20 08/16/20 History metoprolol tartrate 25 mg PO BID 03/21/20 08/16/20 History azelastine 137 mcg (0.1 %) nasal 1 spray INTRANASAL Q12H #30 ml 07/18/20 08/16/20 Rx spray aerosol clopidogrel 75 mg PO QAM #30 tablet 07/20/20 08/16/20 Rx nitroglycerin [Nitrostat] 0.4 mg SUBLINGUAL Q5MIN PRN #30 07/20/20 08/16/20 Rx tablet aspirin [Adult Aspirin EC Low 81 mg PO DAILY 08/16/20 08/16/20 History Strength] cholecalciferol (vitamin D3) 50 mcg PO DAILY 08/16/20 08/16/20 History [Vitamin D3] rosuvastatin 40 mg PO QAM 08/16/20 08/16/20 History vitamin A-vitamin C-vit E-min 1 tablet PO DAILY 08/16/20 08/16/20 History [Ocuvite] zinc acetate 50 mg PO DAILY 08/16/20 08/16/20 History Allergies Allergy/AdvReac Type Severity Reaction Status Date / Time Penicillins AdvReac Intermediate Nausea, Verified 08/16/20 09:20 HEADACHE Exam Const: General: cooperative, healthy appearing, comfortable, well developed and alert HENMT: Head: normal to inspection, normocephalic and atraumatic Ears: hearing grossly normal bilaterally, external ears normal, TM's normal bilaterally ( retracted) and EAC's normal General nose exam: Normal external nose present, Normal nares present, No nasal polyps present, Normal nasal mucous membranes and turbinates present and Normal septum present Face and sinus: normal facial exam Mouth: Yes Normal oral and palatal mucosa present, Yes lip normal, Yes tongue normal, Yes oropharynx normal and Yes moist mucous membranes Teeth and gingiva: dentition normal and gingiva normal Throat: posterior oropharynx normal, tonsils normal and uvula midline Eyes: General: appearance normal, both eyes and all related structures Periorbital: periorbital finding
[2020-08-24] MEDS: ACETAMINOPHEN 500 MG TABLET 1000 MG PO (06:44)
[2020-08-24] MEDS: LACTATED RINGERS 1,000 ML 30 ML IV CONT (06:45)
--- NOTE | 2020-08-24 06:58 | WPDHPUPDATE1 ---
History and Physical Update Update Date/Time: 08/24/20 06:58 History and Physical has been reviewed, including an updated exam of the patient. There are NO changes in the patient's condition. Risks, benefits, and alternatives have been discussed and questions answered. Patient agrees to proceed with procedure.
--- NOTE | 2020-08-24 07:08 | WPDANESEPPF ---
Anes - Initial Pre Proc Eval Procedure: Operation Date: 08/24/20 08:30 Proposed Procedures p Bilateral Eustachian Tube Balloon Dilation - Valdez Anderson MD Date/Time: 08/24/20 07:08 Surgeon: Valdez Anderson MD Pre Op Diagnosis: Eustachian Tube Dysfunction Patient Data Age: 74 Gender: M Height: 5 ft 9.5 in Weight: 77.8 kg Allergies Allergy/AdvReac Type Severity Reaction Status Date / Time Penicillins AdvReac Intermediate Nausea, Verified 08/24/20 07:00 HEADACHE Home Medications Medication Instructions Recorded Confirmed Type fluticasone propionate 2 spray INTRANASAL DAILY 03/21/20 08/24/20 History lutein 20 mg PO DAILY 03/21/20 08/24/20 History metoprolol tartrate 25 mg PO BID 03/21/20 08/24/20 History azelastine 137 mcg (0.1 %) nasal 1 spray INTRANASAL Q12H #30 ml 07/18/20 08/16/20 Rx spray aerosol clopidogrel 75 mg PO QAM #30 tablet 07/20/20 08/24/20 Rx nitroglycerin [Nitrostat] 0.4 mg SUBLINGUAL Q5MIN PRN #30 07/20/20 08/24/20 Rx tablet aspirin [Adult Aspirin EC Low 81 mg PO DAILY 08/16/20 08/16/20 History Strength] cholecalciferol (vitamin D3) 50 mcg PO DAILY 08/16/20 08/16/20 History [Vitamin D3] rosuvastatin 40 mg PO QAM 08/16/20 08/24/20 History vitamin A-vitamin C-vit E-min 1 tablet PO DAILY 08/16/20 08/24/20 History [Ocuvite] zinc acetate 50 mg PO DAILY 08/16/20 08/24/20 History Patient hx anesthesia problems: none Family hx anesthesia problems: none PMFSH Past Medical History Medical History AAA (abdominal aortic aneurysm) Arthritis Dementia Elevated PSA Hyperlipidemia Osteoarthritis Seizure Surgical History Surgical History H/O shoulder surgery Status post total knee replacement, 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) Family History Family History Mother Family history of malignant neoplasm of breast in first degree relative Father Stomach cancer Alcoholism Social History Social History Smoking packs per day: 2 Smoking cigarettes per day: 40.0 Years smoked: 40 Smoking pack-years: 80.00 Smoking status: Former smoker Tobacco type: cigarettes and smokeless tobacco Smokeless tobacco user: chewing tobacco Second hand tobacco smoke exposure: No Smoking end date: 12/21/99 Alcohol intake: current Drinks per week: 7 Substance use: never Living arrangements: with family Additional living arrangements comments: Gender identity (if verbalized by the patient): Male Spiritual care concerns: No Agree to blood products: No Anes - Eval Final PreProcedure Day of Procedure 08/24/20 07:08 Patient weight: normal Heart: regular rate and rhythm Lungs: decreased breath sounds Airway: Mallampati scale class 1 Neurological: alert and oriented Last oral intake: >/= 8 hours ASA classification: III Emergent: no Anesthetic plan: proceed Anesthesia type and monitoring: general LMA and standard monitoring Informed Consent: The patient's anesthetic plan and its attendant risks and benefits were discussed with the patient/family/POA. Questions were solicited and answers provided to the satisfaction of the patient/family/POA.
[2020-08-24] MEDS: OXYMETAZOLINE HCL 0.05% NAS 15 ML BTL (*BKC) 1 SPRAY NASAL (08:00)
[2020-08-24 08:25] VITALS: BP 122/78; PULSE 62; RESP 14; TEMP 36.1; O2SAT 99
--- NOTE | 2020-08-24 08:37 | P.OP_ITS ---
Procedure Note - Detailed Date of procedure: 08/24/20 Pre-op diagnosis: Eustachian Tube Dysfunction Post-op diagnosis: same Procedure performed: 1. Nasal endoscopy 2. Bilateral eustachian tube balloon dilation Description of procedure: The patient was correctly identified and consent was verified in the preoperative holding area. The patient was then brought to the operating room and a time-out performed. General anesthesia was induced and endotracheal tube was secured the patient's airway and taped to the left lower lip. The patient was then prepped and draped for the aforementioned procedures. Afrin-soaked pledgets were placed in the bilateral nasal cavities and allowed to sit for 5 minutes. They were then removed. A 0 degree endoscope was then utilized to perform nasal endoscopy. The inferior turbinates were mildly outfr actured using a [place]. The bilateral torus were identified. Under endoscopic guidance the device was inserted in the nasal passages and the balloon inserted into the the torus/eustachian tube. The balloon was inflated to 12 atmospheres for 2 minutes. This was performed bilaterally. Hemostasis was excellent and there were no complications. Care the patient was turned over to Anesthesiology. I performed all dictated portions. Anesthesia: GLMA Surgeon: Valdez Anderson MD Complications: No immediate complications Condition: stable Disposition: PACU
[2020-08-24 08:40] VITALS: BP 157/109; PULSE 56; RESP 12; O2SAT 100
[2020-08-24 08:55] VITALS: BP 165/96; PULSE 62; RESP 14; O2SAT 98
[2020-08-24 09:17] VITALS: BP 151/92; PULSE 64
[2020-08-24 09:45] VITALS: BP 148/84; PULSE 62
== END 2020-08-24 10:13 | disposition home or self-care (01) ==
PROVIDERS: PCP Family Medicine; Visit Provider Otolaryngology
PROC: (CPT 69706; principal; 2020-08-24 08:30)
DX: H69.83 Other specified disorders of Eustachian tube, bilateral (principal); E78.5 Hyperlipidemia, unspecified; F03.90 Unspecified dementia, unspecified severity, without behavioral disturbance, psychotic disturbance, mood disturbance, and anxiety; I71.4 Abdominal aortic aneurysm, without rupture; M19.90 Unspecified osteoarthritis, unspecified site; Z87.891 Personal history of nicotine dependence; Z79.02 Long term (current) use of antithrombotics/antiplatelets
CPT/HCPCS: 69706; A9270; J0330; J1100; J2405; J2704; J3010; J7120

== ENCOUNTER 2020-12-13 08:57 | Outpatient (CLI) | payer MEDICARE, SELFPAY ==
--- NOTE | ~2020-12-13 | US_ITS ---
EXAMINATION: US aorta DATE: 12/13/2020 09:18 INDICATION: Abdominal aortic aneurysm TECHNIQUE: Grayscale, color Doppler, and pulsed Doppler images of the aorta and common iliac arteries were obtained. COMPARISON: 11/21/2019 FINDINGS: The proximal aorta measures 3.1 x 3.3 cm. The mid aorta measures 3.3 x 3.1 cm. The distal aorta measu res 2.0 cm. The right common iliac artery measures 1.1 cm. The left common iliac artery measures 1.1 cm. IMPRESSION: 1. Unchanged borderline aneurysmal mid abdominal aorta measuring up to 3.3 cm. Reviewed, dictated and finalized at location A.
== END 2020-12-13 08:58 | disposition home or self-care (01) ==
LOC: CHSIMG 08:59
PROVIDERS: PCP Family Medicine; Visit Provider Internal Medicine Cardiovascular Disease
DX: I71.4 Abdominal aortic aneurysm, without rupture (principal)
CPT/HCPCS: 76775

== ENCOUNTER 2021-01-15 07:37 | Outpatient (RCR) | payer MEDICARE, SELFPAY ==
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
== END 2021-02-15 08:38 | disposition home or self-care (01) ==
LOC: CHSPT 07:37
PROVIDERS: Visit Provider Orthopaedic Surgery
DX: M70.61 Trochanteric bursitis, right hip (principal)
CPT/HCPCS: 97012; 97014; 97110; 97161; G0283

== ENCOUNTER 2021-02-06 08:22 | Outpatient (CLI) | payer MEDICARE, SELFPAY ==
[2021-02-06 09:32] LABS: Prostate Specific Antigen 3.6 ng/mL (< OR = 4.0)
== END 2021-02-06 08:23 | disposition home or self-care (01) ==
LOC: CHSLAB 08:24
PROVIDERS: PCP Family Medicine; Visit Provider Nurse Practitioner Family
DX: R35.0 Frequency of micturition (principal); Z12.5 Encounter for screening for malignant neoplasm of prostate
CPT/HCPCS: 36415; 84153; G0103

== ENCOUNTER → 2021-05-07 02:35 | Outpatient (CLI) | payer MEDICARE, SELFPAY ==
[2021-05-07 19:35] LABS: SARS-CoV-2 RNA PCR Negative
== END ==
PROVIDERS: PCP Family Medicine; Visit Provider Internal Medicine Critical Care Medicine
DX: R68.89 Other general symptoms and signs (principal); Z20.822 Contact with and (suspected) exposure to COVID-19
CPT/HCPCS: C9803; U0003; U0005

== ENCOUNTER 2021-05-10 07:41 | Outpatient (CLI) | payer MEDICARE, SELFPAY ==
--- NOTE | 2021-05-30 18:53 | WPDSLEEPSTUD ---
Sleep Study Date of Study: 05/10/21 Ordering Provider: Shaun Jones MD Interpreting Physician: Marisel Rubio MD Sleep Study Type: Polysomnogram Height: 1.78 m Weight: 83.461 kg Body Mass Index: 26.4 Neck Circumference (inches): 16 Fowler: 7 Reason for Sleep Study Constantly feeling tired in the day, not enough sleep at night Sleep History Wilian Yi is a 75 year old man with complaints of Constantly feeling tired and not getting enough sleep at night. He has difficulty falling asleep and staying asleep. He wakes up often at night. He does not awake up from sleep feeling short of breath and he does not have heartburn, belching or coughing that wakes him at night. He rarely snores and it is never loud enough that others complain about it. He rarely has trouble sleeping with a cold. He does not wake up gasping for breath during the night. He does not have breathing problems at night reported to him by others. He rarely sweats excessively at night. He occasionally notices his heart pounding or beating irregularly at night. He occasionally falls asleep during the day. He does not fall asleep involuntarily or while driving. He does not have loss of muscle tone with strong emotion. He occasionally has daytime difficulties due to his excessive sleepiness. He does not feel paralyzed on waking or falling asleep. He occasionally has vivid dreamlike scenes upon awakening or falling asleep. He does not feel afraid to go to sleep. He occasionally has nightmares. He rarely remembers his dreams. He frequently has racing thoughts. He occasionally feels sad, depressed or anxious. He occasionally has muscular tension. He occasionally notices parts of his body jerking. He rarely kicks at night. He does not have crawling or aching feelings in his legs. He rarely has any kind of leg pain at night. He does not have morning jaw pain. He does not grind his teeth during sleep. He occasionally is bothered by pain during the day. He rarely is awakened by pain at night. He does not wake up feeling stiff in the morning. He occasionally wakes up with sore achy muscles. He frequently wakes up with pain in the neck and spine. He has headaches, fatigue, sexual problems, memory problems, concentration difficulties and he has insomnia. Normal bedtime is 10:30 p.m. taking 30 minutes to fall asleep typically waking 3-4 times throughout the night. On average she stays awake between 30 and 45 minutes. There was nothing in particular that seems to wake him. He wakes the morning at 6:00 a.m.. He estimates getting 4 hours of sleep at night. His weekend schedule is the same. He is working 1 day per week. He takes naps in the afternoon or evening. A short nap is not refreshing. He is drowsy in the morning for 1 hour or longer. He feels better in the evening compared to other times of day. Habits: Quit tobacco 20 years ago. Caffeine, large amounts. No alcohol or recreational drugs. 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
[2021-05-30 20:05] VITALS: BMI 26.4
== END 2021-05-11 06:18 | disposition home or self-care (01) ==
LOC: ANHCSM 07:58
PROVIDERS: PCP Family Medicine; Visit Provider Internal Medicine Cardiovascular Disease
DX: G47.00 Insomnia, unspecified (principal); G47.61 Periodic limb movement disorder
CPT/HCPCS: 95810

== ENCOUNTER 2021-07-04 08:23 | Emergency (ER) | payer MEDICARE, SELFPAY ==
--- NOTE | ~2021-07-04 | XR_ITS ---
EXAMINATION: XR chest 1V portable DATE: 07/04/2021 09:41 INDICATION: Shortness of breath. Cough. TECHNIQUE: A single frontal view of the chest was obtained. COMPARISON: Chest 2 views 07/19/2020, chest CT 09/21/2019 FINDINGS: There are airspace opacities in all lung zones bilaterally. A calcified right lung nodule a nd calcified right hilar lymph nodes are consistent with old granulomatous disease. No pleural effusi on or pneumothorax. The heart size is normal. There are old healed right rib fractures. IMPRESSION: 1. Diffuse lung disease suspicious for pneumonia such as COVID-19 pneumonia. Pulmonary edema is less likely. Reviewed, dictated and finalized at location B. ICAL EXERCISE PHYSIOLOGIST IMPRESSION: 1. Diffuse lung disease suspicious for pneumonia such as COVID-19 pneumonia. Pu lmonary edema is less likely.
[2021-07-04 09:09] VITALS: BP 122/87; PULSE 87; RESP 20; TEMP 37.1; O2SAT 94
[2021-07-04 09:40] LABS: Basophils Absolute Auto 0.02 K/mm3 (0.00-0.10); Basophils Percent Auto 0.4 % (0.0-1.0); Immature Granulocyte Absolute 0.02 K/mm3 (0.00-0.00); Immature Granulocyte Percent A 0.4 % (0.0-0.0); Lymphocytes Absolute Auto 1.11 K/mm3 (1.10-4.50); Lymphocytes Percent Auto 19.4 % (18.0-42.0); Mean Corpuscular HGB Conc 34.1 g/dL (32.0-36.0); Mean Corpuscular Hemoglobin 31.4 pg (27.0-31.0); Mean Corpuscular Volume 92.2 fL (78.0-102.0); Mean Platelet Volume 9.8 fl (8.7-11.0); Monocytes Absolute Auto 0.76 K/mm3 (0.10-0.90); Monocytes Percent Auto 13.3 % (2.0-11.0); Neutrophils Absolute Auto 3.8 K/mm3 (1.7-7.2); Neutrophils Percent Auto 66.5 % (50.0-70.0); Platelet Count Result 203 K/mm3 (150-420); Red Blood Count 4.77 M/mm3 (4.70-6.10); White Blood Count 5.7 K/mm3 (4.8-10.8)
[2021-07-04] MEDS: ACETAMINOPHEN 500 MG TABLET 1000 MG PO (09:43)
[2021-07-04 09:57] LABS: Alanine Aminotransferase 29 U/L (16-63); Albumin Level 3.1 g/dL (3.4-5.0); Alkaline Phosphatase 68 U/L (46-116); Anion Gap 11 mmol/L (8-16); Aspartate Amino Transferase 43 U/L (15-37); Bilirubin,Total 0.5 mg/dL (0.00-1.00); Blood Urea Nitrogen 21 mg/dL (7-18); Calcium 8.5 mg/dL (8.5-10.1); Carbon Dioxide 29 mmol/L (21-32); Chloride 96 mmol/L (98-108); Estimated CRCL calculation 56 ml/min; Estimated Glomerular Filt Rate > 60; Glucose 112 mg/dL (70-99); Osmolality Calculated 286 mOsm/kg (285-295); Potassium 3.5 mmol/L (3.5-5.1); Sodium 136 mmol/L (136-145); Total Protein 7.5 g/dL (6.4-8.2)
--- NOTE | 2021-07-04 09:59 | PC.NURSE ---
2 unsuccessful iv attempts
[2021-07-04 10:18] LABS: SARS-CoV-2 RNA PCR Positive (Negative)
--- NOTE | 2021-07-04 10:26 | ED.URI ---
HPI - URI/Sore Throat General Chief Complaint: Upper Respiratory Infection Stated Complaint: COUGH SICK History of Present Illness HPI Narrative: this is a 75-year-old gentleman with a history of AFib and hyperlipidemia is currently vaccinated for COVID presents with COVID like symptoms cough congestion body aches with no diarrhea, currently no shortness of breath no chest pain no nausea vomiting. Patient's family has been diagnosed with COVID and he presents with cough and congestion. Related Data Home Medications Medication Instructions Recorded Confirmed lutein 40 mg PO DAILY 03/21/20 07/04/21 aspirin [Adult Aspirin EC Low 81 mg PO DAILY 08/16/20 07/04/21 Strength] cholecalciferol (vitamin D3) 50 mcg PO DAILY 08/16/20 07/04/21 [Vitamin D3] rosuvastatin 40 mg PO QAM 08/16/20 07/04/21 vitamin A-vitamin C-vit E-min 1 tablet PO DAILY 08/16/20 07/04/21 [Ocuvite] zinc acetate 50 mg PO DAILY 08/16/20 07/04/21 Allergies Allergy/AdvReac Type Severity Reaction Status Date / Time Penicillins AdvReac Intermediate Nausea, Verified 07/04/21 09:13 HEADACHE Review of Systems Review of Systems: All systems reviewed & are unremarkable except as noted in HPI and below PMFSH Past Medical History Medical History AAA (abdominal aortic aneurysm) Arthritis Dementia Elevated PSA Hyperlipidemia Osteoarthritis Seizure Surgical History Surgical History H/O shoulder surgery Status post total knee replacement, 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) Family History Family History Mother Family history of malignant neoplasm of breast in first degree relative Father Stomach cancer Alcoholism Social History Social History Smoking packs per day: 2 Smoking cigarettes per day: 40.0 Years smoked: 40 Smoking pack-years: 80.00 Smoking status: Former smoker Tobacco type: cigarettes and smokeless tobacco Smokeless tobacco user: chewing tobacco Second hand tobacco smoke exposure: No Smoking end date: 12/21/99 Alcohol intake: current Drinks per week: 2 Substance use: never Additional living arrangements comments: 2 boys Gender identity (if verbalized by the patient): Male Spiritual care concerns: No Agree to blood products: No Exam Const: General: no acute distress Orientation/consciousness: patient oriented x3 HENMT: Head: normal to inspection Eyes: Conjunctivae: conjunctivae normal Pupils: Equal, round and reactive pupils present Neck: Neck: normal visual inspection and no lymphadenopathy Chest: Chest palpation & inspection: normal inspection of the chest Resp: Effort & Inspection: normal respiratory effort Auscultation: clear to auscultation bilaterally Cardio: Rate: regular rate Rhythm: abnormal rhythm GI: GI Palp: Yes Soft to palpation Percussion: Yes normal to percussion Back/Spine/Pelvis: Back: no CVA tenderness Skin: General skin exam: normal color Rashes: no rashes Neuro: General: patient oriented x3 Extrem: General: normal to inspection and no pedal edema Psych: Mental Status: mental status grossly normal Affect: normal affect Course Course Emergency Course: COVID swab was positive and relayed this to the patient had a chest x-ray which showed diffuse lung disease suggestive of COVID pneumonia O2 sats at 96% on room air is reviewed with patient Vital Signs Vital signs: Vital Signs Temperature 37.1 C 07/04/21 09:09 Pulse Rate 87 07/04/21 09:09 Respiratory Rate 07/04/21 09:09 Blood Pressure 122/87 07/04/21 09:09 Pulse Oximetry 94 07/04/21 09:09 Temperature 37.1 C 07/04/21 09:09 Pulse Rate 87 07/04/21 09:09 Respiratory Rate 20 07/04/21 09:09 Blood Pressure 122/87 07/04/21 09:09 Pulse Oximetry 94
--- NOTE | 2021-07-04 10:27 | PC.NURSE ---
bolus not given due to pending discharge
== END 2021-07-04 10:51 | disposition home or self-care (01) ==
PROVIDERS: Emergency Provider Emergency Medicine; PCP Family Medicine
DX: U07.1 COVID-19 (principal); J12.82 Pneumonia due to coronavirus disease 2019; E78.5 Hyperlipidemia, unspecified; Z87.891 Personal history of nicotine dependence
CPT/HCPCS: 36415; 71045; 80053; 85025; 99283; C9803; U0003; U0005

== ENCOUNTER 2021-07-11 08:00 | Outpatient (CLI) | payer MEDICARE, SELFPAY ==
--- NOTE | 2021-07-11 08:10 | PC.NURSE ---
PT to room 226 per wc. A&Ox3. To chair per self. Only complains of fatigue. Infusion plan of care explained. Pt read and signed consent. Pt has no questions. Oriented to room. Call adamson in reach. Reminded to call with needs.
[2021-07-11] MEDS: diphenhydrAMINE HCl CAP 25 MG CAPSULE PO (08:32)
[2021-07-11] MEDS: FAMOTIDINE 20 MG TABLET PO (08:32)
[2021-07-11] MEDS: ACETAMINOPHEN 325 MG TABLET 650 MG PO (08:32)
--- NOTE | 2021-07-11 09:59 | PC.NURSE ---
Pt tolerated infusion well. Has no complaints. Discharged to home per .
== END 2021-07-11 08:01 | disposition home or self-care (01) ==
LOC: CHSTREATRM 08:02
PROVIDERS: PCP Family Medicine; Visit Provider Nurse Practitioner Family
DX: U07.1 COVID-19 (principal)
CPT/HCPCS: A9270; M0245; Q0247

== ENCOUNTER 2021-10-10 08:29 | Outpatient (CLI) | payer MEDICARE, SELFPAY ==
[2021-10-10 08:43] LABS: Hematocrit 42.1 % (37.0-46.0); Hemoglobin 13.9 g/dL (12.4-15.3); Mean Corpuscular Volume 96.8 fL (78.0-102.0); Mean Platelet Volume 9.1 fl (8.7-11.0); Platelet Count Result 241 K/mm3 (150-420); Red Blood Count 4.35 M/mm3 (4.70-6.10); Red Cell Distribution Width 12.9 % (11.6-14.4); White Blood Count 4.9 K/mm3 (4.8-10.8)
[2021-10-10 10:27] LABS: Alanine Aminotransferase 22 U/L (16-63); Alkaline Phosphatase 74 U/L (46-116); Anion Gap 7 mmol/L (8-16); Aspartate Amino Transferase 21 U/L (15-37); Bilirubin,Total 0.5 mg/dL (0.00-1.00); Blood Urea Nitrogen 22 mg/dL (7-18); Calcium 9.1 mg/dL (8.5-10.1); Carbon Dioxide 28 mmol/L (21-32); Chloride 108 mmol/L (98-108); Cholesterol 156 mg/dL (0-200); Estimated Glomerular Filt Rate > 60; Ferritin 74 ng/mL (26-388); Glucose 86 mg/dL (70-99); HDL Direct 56 mg/dL (40-60); Iron 101 ug/dL (65-175); LDL Cholesterol Calculated 79 mg/dL (<130); Osmolality Calculated 298 mOsm/kg (285-295); Percent Iron Saturation 35 % (12-57); Potassium 3.7 mmol/L (3.5-5.1); Prostate Specific Antigen 3.1 ng/mL (< OR = 4.0); Sodium 143 mmol/L (136-145); Total Protein 6.8 g/dL (6.4-8.2); Triglycerides 106 mg/dL (0-150)
== END 2021-10-10 08:30 | disposition home or self-care (01) ==
LOC: CHSLAB 08:32
PROVIDERS: PCP Family Medicine; Visit Provider Nurse Practitioner Family
DX: I25.10 Atherosclerotic heart disease of native coronary artery without angina pectoris (principal); E11.9 Type 2 diabetes mellitus without complications; M25.50 Pain in unspecified joint; E78.5 Hyperlipidemia, unspecified; R97.20 Elevated prostate specific antigen [PSA]; R35.1 Nocturia
CPT/HCPCS: 36415; 80053; 80061; 82728; 83036; 83540; 83550; 84153; 84443; 85027; G0103

== ENCOUNTER 2021-10-24 08:54 | Outpatient (CLI) | payer MEDICARE, SELFPAY ==
--- NOTE | ~2021-10-24 | XR_ITS ---
EXAMINATION:XR_[id number]_CR DATE: 10/24/2021 09:38 INDICATION: Neck pain TECHNIQUE: AP, lateral, and odontoid views of the cervical spine are provided. COMPARISON: None FINDINGS: There are 2 mm of anterolisthesis of C3 on C4. There are 2 mm of retrolisthesis of C5 on C6 . The odontoid is intact. No fracture is identified. The vertebral body heights are normal. There is severe loss of intervertebral disc space height at C4-5, C5-6, and C6-7. Small degenerative osteophyt es project from the anterior endplates of multiple vertebral bodies. There is severe multilevel facet and uncovertebral joint osteoarthritis. Prevertebral soft tissues are normal. IMPRESSION: 1. Severe cervical spondylosis without acute findings. Reviewed, dictated and finalized at location B.
== END 2021-10-24 08:55 | disposition home or self-care (01) ==
LOC: CHSIMG 08:57
PROVIDERS: PCP Family Medicine; Visit Provider Family Medicine
DX: M54.2 Cervicalgia (principal); M47.812 Spondylosis without myelopathy or radiculopathy, cervical region
CPT/HCPCS: 72040

== ENCOUNTER 2022-01-16 07:18 | Outpatient (CLI) | payer MEDICARE, SELFPAY ==
--- NOTE | ~2022-01-16 | US_ITS ---
EXAMINATION: US aorta [facility] DATE: 01/16/2022 07:57 INDICATION: Abdominal aortic aneurysm without rupture TECHNIQUE: Grayscale, color Doppler, and pulsed Doppler images of the aorta and common iliac arteries were obtained. COMPARISON: 12/09/2020 FINDINGS: The proximal aorta measures 2.5 cm. Fusiform mild dilation of the proximal to mid abdominal aorta michelle suring up to 3.5 cm in maximal diameter. The mid aorta measures 2.0 cm. The distal aorta measures 1.8 cm. The right common iliac artery measures 12 mm. The left common iliac artery measures 10 mm. IMPRESSION: 1. Borderline fusiform aneurysm of the proximal to mid abdominal aorta measuring up to 3.5 cm maximal diameter. Reviewed, dictated and finalized at location A. IMPRESSION: 1. Borderline fusiform aneurysm of the proximal to mid abdominal aorta measurin g up to 3.5 cm maximal diameter.
== END 2022-01-16 07:19 | disposition home or self-care (01) ==
LOC: CHSIMG 07:20
PROVIDERS: PCP Family Medicine; Visit Provider Nurse Practitioner Adult Health
DX: I71.4 Abdominal aortic aneurysm, without rupture (principal)
CPT/HCPCS: 76706

== ENCOUNTER 2022-09-16 12:05 | Outpatient (CLI) | payer MEDICARE, SELFPAY ==
[2022-09-16 12:33] LABS: Basophils Absolute Auto 0.05 K/mm3 (0.00-0.10); Basophils Percent Auto 0.8 % (0.0-1.0); Eosinophils Absolute Auto 0.13 K/mm3 (0.02-0.50); Hematocrit 42.4 % (37.0-46.0); Hemoglobin 14.5 g/dL (12.4-15.3); Immature Granulocyte Absolute 0.02 K/mm3 (0.00-0.00); Immature Granulocyte Percent A 0.3 % (0.0-0.0); Lymphocytes Percent Auto 31.2 % (18.0-42.0); Mean Corpuscular HGB Conc 34.2 g/dL (32.0-36.0); Mean Corpuscular Hemoglobin 32.2 pg (27.0-31.0); Mean Corpuscular Volume 94.2 fL (78.0-102.0); Mean Platelet Volume 9.1 fl (8.7-11.0); Monocytes Absolute Auto 0.64 K/mm3 (0.10-0.90); Neutrophils Absolute Auto 3.6 K/mm3 (1.7-7.2); Neutrophils Percent Auto 55.7 % (50.0-70.0); Platelet Count Result 235 K/mm3 (150-420); Red Cell Distribution Width 12.9 % (11.6-14.4); White Blood Count 6.4 K/mm3 (4.8-10.8)
[2022-09-16 12:38] LABS: Appearance Urine Clear (Clear); Bilirubin Urine Negative (Negative); Blood Urine Negative (Negative); Color Urine Yellow (Yellow); Glucose Urine UA 3+ (Negative); Ketones Urine Trace (Negative); Leukocyte Esterase Ur Negative LEU/UL (Negative); Nitrate Urine Negative (Negative); Protein Urine Negative (Negative); Specific Grav Ur >= 1.030 (1.010-1.020); Urobilinogen Urine 0.2 mg/dL (0.2-1.0); pH Urine 5.5 (5.0-8.0)
[2022-09-16 12:56] LABS: Add Urine Microscopic? YES; Bacteria Urine None seen /hpf; RBC Urine None seen /hpf (0-2); WBC Urine None seen /hpf (0-3)
[2022-09-16 15:27] LABS: Alanine Aminotransferase 28 U/L (16-63); Alkaline Phosphatase 76 U/L (46-116); Anion Gap 8 mmol/L (8-16); Aspartate Amino Transferase 23 U/L (15-37); Bilirubin,Total 0.4 mg/dL (0.00-1.00); Blood Urea Nitrogen 20 mg/dL (7-18); Calcium 8.7 mg/dL (8.5-10.1); Carbon Dioxide 29 mmol/L (21-32); Chloride 110 mmol/L (98-108); Cholesterol 123 mg/dL (0-200); Estimated Glomerular Filt Rate > 60; Free T4 Free Thyroxine 1.08 ng/dL (0.76-1.46); Glucose 89 mg/dL (70-99); HDL Direct 59 mg/dL (40-60); Iron 61 ug/dL (65-175); LDL Cholesterol Calculated 44 mg/dL (<130); Osmolality Calculated 305 mOsm/kg (285-295); Potassium 3.9 mmol/L (3.5-5.1); Prostate Specific Antigen 3.4 ng/mL (< OR = 4.0); Sodium 147 mmol/L (136-145); Thyroid Stimulating Hormone 2.08 uIU/mL (0.36-3.74); Triglycerides 102 mg/dL (0-150); Vitamin B12 212 pg/mL (193-986)
[2022-09-18 17:10] LABS: Vitamin D 25 Hydroxy 23 ng/mL (30-100)
== END 2022-09-16 12:06 | disposition home or self-care (01) ==
LOC: CHSLAB 12:10
PROVIDERS: PCP Nurse Practitioner Family; Visit Provider Nurse Practitioner Family
DX: R39.12 Poor urinary stream (principal); Z87.898 Personal history of other specified conditions; Z13.6 Encounter for screening for cardiovascular disorders; Z79.899 Other long term (current) drug therapy; E61.1 Iron deficiency; R53.83 Other fatigue
CPT/HCPCS: 36415; 80053; 80061; 81001; 82306; 82607; 83540; 83735; 84153; 84439; 84443; 85025

== ENCOUNTER 2022-10-24 07:23 | Outpatient (CLI) | payer MEDICARE, SELFPAY ==
--- NOTE | ~2022-10-24 | US_ITS ---
EXAMINATION: US aorta DATE: 10/24/2022 07:46 INDICATION: Abdominal aortic aneurysm without rupture TECHNIQUE: Grayscale, color Doppler, and pulsed Doppler images of the aorta and common iliac arteries were obtained. COMPARISON: None. FINDINGS: The proximal aorta measures 3.0 cm. The mid aorta measures 1.9 cm. The distal aorta measures 1.9 cm. The right common iliac artery measures 1.2 cm. The left common iliac artery measures 1.2 cm. IMPRESSION: 1. Mural caliber abdominal aorta Reviewed, dictated and finalized at location B.
[2022-10-24 09:00] LABS: Basophils Absolute Auto 0.06 K/mm3 (0.00-0.10); Basophils Percent Auto 1.1 % (0.0-1.0); Eosinophils Absolute Auto 0.18 K/mm3 (0.02-0.50); Eosinophils Percent Auto 3.4 % (1.0-6.0); Hematocrit 45.3 % (37.0-46.0); Hemoglobin 15.3 g/dL (12.4-15.3); Immature Granulocyte Absolute 0.01 K/mm3 (0.00-0.00); Immature Granulocyte Percent A 0.2 % (0.0-0.0); Lymphocytes Absolute Auto 1.94 K/mm3 (1.10-4.50); Lymphocytes Percent Auto 36.1 % (18.0-42.0); Mean Corpuscular HGB Conc 33.8 g/dL (32.0-36.0); Mean Corpuscular Hemoglobin 32.2 pg (27.0-31.0); Mean Corpuscular Volume 95.4 fL (78.0-102.0); Mean Platelet Volume 9.3 fl (8.7-11.0); Monocytes Absolute Auto 0.65 K/mm3 (0.10-0.90); Monocytes Percent Auto 12.1 % (2.0-11.0); Neutrophils Absolute Auto 2.5 K/mm3 (1.7-7.2); Neutrophils Percent Auto 47.1 % (50.0-70.0); Platelet Count Result 228 K/mm3 (150-420); Red Blood Count 4.75 M/mm3 (4.70-6.10); Red Cell Distribution Width 13.2 % (11.6-14.4); White Blood Count 5.4 K/mm3 (4.8-10.8)
[2022-10-24 09:54] LABS: Alanine Aminotransferase 32 U/L (16-63); Albumin Level 4.1 g/dL (3.4-5.0); Alkaline Phosphatase 92 U/L (46-116); Anion Gap 9 mmol/L (8-16); Aspartate Amino Transferase 27 U/L (15-37); Bilirubin,Total 0.6 mg/dL (0.00-1.00); Blood Urea Nitrogen 24 mg/dL (7-18); Calcium 8.9 mg/dL (8.5-10.1); Carbon Dioxide 30 mmol/L (21-32); Chloride 107 mmol/L (98-108); Estimated Glomerular Filt Rate > 60; Glucose 87 mg/dL (70-99); Osmolality Calculated 305 mOsm/kg (285-295); Potassium 4.1 mmol/L (3.5-5.1); Sodium 146 mmol/L (136-145); Thyroid Stimulating Hormone Reflex 2.44 u/IU/mL (0.36-3.74); Total Protein 7.2 g/dL (6.4-8.2)
== END 2022-10-24 07:24 | disposition home or self-care (01) ==
PROVIDERS: PCP Family Medicine; Visit Provider Internal Medicine Cardiovascular Disease
DX: I71.40 Abdominal aortic aneurysm, without rupture, unspecified (principal); I50.32 Chronic diastolic (congestive) heart failure
CPT/HCPCS: 36415; 76775; 80053; 84443; 85025

== ENCOUNTER 2023-09-17 07:42 | Outpatient (CLI) | payer MEDICARE, SELFPAY ==
[2023-09-17 08:03] LABS: Basophils Absolute Auto 0.04 K/mm3 (0.00-0.10); Basophils Percent Auto 0.8 % (0.0-1.0); Eosinophils Absolute Auto 0.14 K/mm3 (0.02-0.50); Eosinophils Percent Auto 2.8 % (1.0-6.0); Hematocrit 46.4 % (37.0-46.0); Hemoglobin 15.5 g/dL (12.4-15.3); Immature Granulocyte Absolute 0.02 K/mm3 (0.00-0.00); Immature Granulocyte Percent A 0.4 % (0.0-0.0); Lymphocytes Absolute Auto 1.95 K/mm3 (1.10-4.50); Mean Corpuscular HGB Conc 33.4 g/dL (32-36); Mean Corpuscular Hemoglobin 31.6 pg (27.0-31.0); Mean Corpuscular Volume 94.5 fL (78.0-102.0); Monocytes Absolute Auto 0.62 K/mm3 (0.10-0.90); Monocytes Percent Auto 12.4 % (2.0-11.0); Neutrophils Absolute Auto 2.23 K/mm3 (1.70-7.20); Neutrophils Percent Auto 44.6 % (50.0-70.0); Platelet Count Result 244 K/mm3 (150-420); Red Blood Count 4.91 M/mm3 (4.70-6.10); Red Cell Distribution Width 12.7 % (11.6-14.4)
[2023-09-17 09:15] LABS: Alanine Aminotransferase 33 U/L (16-63); Albumin Level 3.9 g/dL (3.4-5.0); Alkaline Phosphatase 72 U/L (46-116); Anion Gap 10 mmol/L (4-12); Aspartate Amino Transferase 21 U/L (15-37); Bilirubin,Total 0.5 mg/dL (0.00-1.00); Blood Urea Nitrogen 19 mg/dL (7-18); Calcium 9.1 mg/dL (8.5-10.1); Carbon Dioxide 28 mmol/L (21-32); Chloride 106 mmol/L (98-108); Cholesterol 159 mg/dL (0-200); Estimated Glomerular Filt Rate > 60; Free T4 Free Thyroxine 0.97 ng/dL (0.76-1.46); Glucose 88 mg/dL (70-99); HDL Direct 64 mg/dL (40-60); Iron 74 ug/dL (65-175); LDL Cholesterol Calculated 82 mg/dL (<130); Magnesium 2.2 mg/dL (1.8-2.4); Osmolality Calculated 299 mOsm/kg (285-295); Percent Iron Saturation 25 % (12-57); Sodium 144 mmol/L (136-145); Thyroid Stimulating Hormone 3.38 uIU/mL (0.36-3.74); Total Protein 6.8 g/dL (6.4-8.2); Triglycerides 65 mg/dL (0-150); Vitamin B12 562 pg/mL (193-986)
[2023-09-29 12:46] LABS: Vitamin D 25 Hydroxy 28 ng/mL (30-100)
== END 2023-09-17 07:43 | disposition home or self-care (01) ==
LOC: CHSLAB 07:44
PROVIDERS: PCP Nurse Practitioner Family; Visit Provider Nurse Practitioner Family
DX: I10 Essential (primary) hypertension (principal); Z13.6 Encounter for screening for cardiovascular disorders; E78.5 Hyperlipidemia, unspecified; E53.8 Deficiency of other specified B group vitamins; Z79.899 Other long term (current) drug therapy; E03.9 Hypothyroidism, unspecified; R53.83 Other fatigue; E61.1 Iron deficiency
CPT/HCPCS: 36415; 80053; 80061; 82306; 82607; 83540; 83550; 83735; 84439; 84443; 85025

== ENCOUNTER 2023-10-06 07:52 | Outpatient (CLI) | payer MEDICARE, SELFPAY ==
--- NOTE | ~2023-10-06 | US_ITS ---
EXAMINATION: US aorta DATE: 10/06/2023 08:22 CDT INDICATION: Aortic aneurysm TECHNIQUE: Grayscale, color Doppler, and pulsed Doppler images of the aorta and common iliac arteries were obtained. COMPARISON: Ultrasound dated 10/24/2022. FINDINGS: The proximal aorta measures 3 cm greatest sagittal dimension. The mid aorta measures 2 cm greatest sa gittal dimension. The distal aorta measures 1.6 cm greatest sagittal dimension. The right common inte rnal iliac artery measures 11 mm. The left common iliac artery measures 11 mm. IMPRESSION: 1. Stable proximal abdominal aortic aneurysm measuring 3 cm. Reviewed, dictated and finalized at location B.
== END 2023-10-06 07:53 | disposition home or self-care (01) ==
LOC: CHSIMG 07:53
PROVIDERS: PCP Nurse Practitioner Family; Visit Provider Nurse Practitioner Family
DX: I71.40 Abdominal aortic aneurysm, without rupture, unspecified (principal)
CPT/HCPCS: 76775

== ENCOUNTER 2023-12-14 14:52 | Outpatient (CLI) | payer MEDICARE, SELFPAY ==
--- NOTE | ~2023-12-14 | XR_ITS ---
EXAMINATION: XR chest 2V DATE: 12/14/2023 15:18 INDICATION: Shortness of breath. Cough. TECHNIQUE: Frontal and lateral views of the chest were obtained. COMPARISON: Chest single view 07/04/2021 FINDINGS: There is no pneumonia, pleural effusion, or pneumothorax. The heart size is normal. IMPRESSION: 1. No acute cardiopulmonary disease. Reviewed, dictated and finalized at location A.
== END 2023-12-14 14:53 | disposition home or self-care (01) ==
LOC: CHSIMG 14:55
PROVIDERS: PCP Family Medicine; Visit Provider Nurse Practitioner Family
DX: R06.02 Shortness of breath (principal)
CPT/HCPCS: 71046

== ENCOUNTER 2023-12-16 09:52 | Outpatient (CLI) | payer MEDICARE, SELFPAY ==
--- NOTE | 2023-12-17 22:23 | WPDPFTINT ---
PFT Procedure Performed PFT Procedure Performed Spirometry with Pre/Post Bronchodilator Plethysmography (Lung Vol) Diffusing Cap (DLCO) Flow Vol Loop PFT Interpretation DOS: 12/16/2023 REQUESTING: Rika Mike NP REASON FOR TESTING: COPD PULMONARY FUNCTION TESTS Results are reliable and reproducible. The patient had a difficult time fully exhaling. Spirometry: FEV1 is 2.96 L, 100%. FVC is 3.19 L, 83%. FEV1/FVC is 93%. There is an 11% increase in the FEV1, 3.30 L, 112% predicted. There is an 34% increased in the FVC after bronchodilator which is significant statistically. The FVC after bronchodilator is 4.26 L, 111% predicted. Lung volumes: Total lung capacity is 6.70 L, 105%, normal. Residual volume is 2.97 L, 112%. RV/TLC is 44%, normal. No air trapping. Airway resistance normal. Diffusion: DLCO 24.9, 129%. DLCO/VA is 3.76, 111%, normal. Flow volume loop: Normal. IMPRESSION: Normal spirometry, lung volumes and diffusion. Excellent response to bronchodilator. Normal lung volumes and normal diffusion. Marisel Rubio MD
== END 2023-12-16 09:53 | disposition home or self-care (01) ==
LOC: CHSCARD 09:54
PROVIDERS: PCP Family Medicine; Visit Provider Nurse Practitioner Family
DX: R06.02 Shortness of breath (principal)
CPT/HCPCS: 94060; 94726; 94729

== ENCOUNTER 2024-04-06 11:37 | Outpatient (CLI) | payer MEDICARE, SELFPAY ==
--- NOTE | ~2024-04-06 | XR_ITS ---
XR elbow LT min 3V Ordering provider: Gardenia Mike NP History: . FALL X6DAYS AGO,BLUNT TRAUMA-ON [place],GENERAL PAIN . Comparison: January 19, 2019 FINDINGS: BONES: No acute fracture or dislocation. JOINT SPACES: Normal. SOFT TISSUES: Normal. No definite joint effusion. IMPRESSION: No acute osseous abnormality left elbow. Reviewed, dictated and finalized at location A.
== END 2024-04-06 11:38 | disposition home or self-care (01) ==
PROVIDERS: PCP Nurse Practitioner Family; Visit Provider Nurse Practitioner Family
DX: M25.522 Pain in left elbow (principal)
CPT/HCPCS: 73080

== ENCOUNTER 2024-05-10 14:47 | Outpatient (RCR) | payer MEDICARE, SELFPAY ==
--- NOTE | 2024-05-10 15:57 | OPREHPOC ---
Outpatient Therapy Plan of Care This is a Multidisciplinary Plan of Care that may contain components documented by all disciplines (PT, OT, and ST.) PT Problem 1 PT Problem #1 Knowledge Deficit PT Goal 1 Goal / Goal Update The patient will be independent in a home exercise program. Target Visit 4 PT Problem 2 PT Problem #2 Pain PT Goal 1 Goal / Goal Update The patient will report no greater than 3/10 neck and R UE pain with reaching and sleeping. Target Visit 10 PT Problem 3 PT Problem #3 Impaired Functional Mobil PT Goal 1 Goal / Goal Update The patient will demonstrate 15% or less self perceived disability per the Neck Index questionnaire. Target Visit 10 PT Problem 4 PT Problem #4 Impaired Range of Motion PT Goal 1 Goal / Goal Update The patient will demonstrate at least 60 degrees bilateral cervical rotation AROM to improve safety with driving. Target Visit 10
--- NOTE | 2024-05-10 15:57 | PTOPEVAL1 ---
Assessment and note entered by Kay Denson, PT Evaluation Information Assessment Status Evaluation ICD-10 Condition Codes (PT) Cervicalgia M54.2 Other ICD-10 Condition Codes ( M47.12, M47.22 PT) Onset 05/04/24 Subjective Information Wilian Rodgers reports he was diagnosed with scoliosis a couple years ago. He has tried healthcare account manager and it helps but he does not like to get adjusted. He started having intermittent right wrist and chest pain recently. He is on medication for his heart and has monitored his blood pressure and oxygen levels which are normal. He is having pain in his neck and down to between his shoulder blades. He went to his primary care doctor who referred him to PT and to have his gall bladder checked out. He is noting stiffness today in the lower neck. He is unable to work on his vehicles like he wants to or reaching into the plant maintenance mechanic or back of the freezer will also cause increased pain. He also notes difficulty turning his head and sleeping. Reported Pain Level Pain Score 2: Self Report Assessment PT Clinical Summary Wilian Rodgers presents with cervical pain and radiculopathy to the right UE. He has difficulty with sleeping and reaching into the back of the freezer or down into the plant maintenance mechanic. He also has difficulty turning his head which limits his ability to drive. He objectively demonstrates decreased cervical AROM, impaired posture, tenderness in the right upper trapezius, and positive special tests for cervical nerve root irritation. He will benefit from skilled PT to address these limitations. Plan of Care Interventions Electrical Stimulation,Hot Pack/Cold Pack,Manual Therapy,Neuro Re-education,Patient/Caregiver Educati,Therapeutic Activities,Therapeutic Exercise PT Services Indicated Yes Treatment Frequency and 3 times a week for 10 visits Duration These treatments will address the objective and functional deficits as defined above. The patient will be advanced safely and appropriately in order for the patient to progress towards his/her prior level of function. Additional exercises will be introduced and as well as a comprehensive home exercise program upon discharge, if needed, ?to ensure carryover of functional gains achieved in the clinic. This treatment plan has been reviewed and agreement upon by the patient.
--- NOTE | 2024-06-08 10:04 | OPREHPOC ---
Outpatient Therapy Plan of Care This is a Multidisciplinary Plan of Care that may contain components documented by all disciplines (PT, OT, and ST.) PT Problem 1 PT Problem #1 Knowledge Deficit PT Goal 1 Goal / Goal Update The patient will be independent in a home exercise program. Target Visit 4 Progress Met PT Problem 2 PT Problem #2 Pain PT Goal 1 Goal / Goal Update The patient will report no greater than 3/10 neck and R UE pain with reaching and sleeping. Target Visit 10 Progress Met PT Problem 3 PT Problem #3 Impaired Functional Mobility PT Goal 1 Goal / Goal Update The patient will demonstrate 15% or less self perceived disability per the Neck Index questionnaire. (progress towards at 20%) Target Visit 10 Progress Partially Met PT Problem 4 PT Problem #4 Impaired Range of Motion PT Goal 1 Goal / Goal Update The patient will demonstrate at least 60 degrees bilateral cervical rotation AROM to improve safety with driving. -met for right side and improved on left side Target Visit 10 Progress Partially Met
--- NOTE | 2024-06-08 10:04 | PTOPDC ---
Assessment and note entered by Kay Denson, PT Evaluation Information Assessment Status Discharge ICD-10 Condition Codes (PT) Cervicalgia M54.2 Other ICD-10 Condition Codes ( M47.12, M47.22 PT) Onset 05/04/24 Subjective Information Wilian Rodgers reports he has only had pain once over the last week and it was only rated 3/10. He has been able to get back to previous activities and feels he has learned exercises to help him maintain improvements he has made throughout PT. Reported Pain Level Pain Score 0: Self Report Assessment PT Clinical Summary Wilian Rodgers has completed 10 skilled PT visits for cervical pain and radiculopathy. He is reporting significantly less pain with no pain noted today and pain only occurred once over the last week. Pain has been 3/10 or less when it does occur and he has been able to return to previous activities pain free. He objectively demonstrates improved cervical AROM in all planes except left lateral flexion has stayed the same and resolved tenderness in cervical musculature. He will be discharged to an independent [facility]. Plan of Care PT Services Indicated No
== END 2024-06-08 10:09 | disposition home or self-care (01) ==
LOC: CHSPT 14:47
PROVIDERS: Visit Provider Nurse Practitioner Family
DX: M47.12 Other spondylosis with myelopathy, cervical region (principal); M47.22 Other spondylosis with radiculopathy, cervical region; M54.2 Cervicalgia
CPT/HCPCS: 97012; 97014; 97110; 97140; 97161; G0283

== ENCOUNTER 2024-05-12 08:25 | Day surgery (SDC) | payer MEDICARE, SELFPAY ==
--- NOTE | 2024-05-12 07:02 | P.OP_ITS ---
Procedure Note - Detailed Date of Procedure 05/12/24 Pre-op Diagnosis Left Ring Trigger Finger Post-op Diagnosis Same Procedure Performed left ring finger a1 cathi release Surgeon Maverick Tripathi MD Television Production Clerk gt lloyd pa-c Anesthesia MAC Description of Procedure INFORMED CONSENT: The patient was seen and examined and marked in the pre-op area.? The patient signed the consent form. PROCEDURE IN DETAIL:The patient taken back to OR on the stretcher in supine position. Time out performed with anesthesia, surgeon and staff agreeing on patient's name site and surgery to be performed SCDs were placed on the lower extremities and inflated. A tourniquet was placed on {left} upper extremity and antibiotics given IV After anesthesia administered sedation I injected {3}cc 1%lido and 0.5% marcaine plain at the operative site The?{left upper extremity}?was prepped and draped in sterile fashion the??{left upper extremity} was? exsanguinated with Esmarch bandage and tourniquet inflated to 250mmHg I proceeded with making a longitudinal incision over the left ring finger A1 cathi through skin and dermis with a 15 blade scalpel. Littler scissors were used to spread down to A1 cathi. The A1 cathi was identified and initially incised with a 15 blade scalpel. Littler scissors were used to spread above it and below it proximally and distally and completing the transection tired early. Ragnell retractor was used withdrawal the FDS and FDP tendon for inspection. These were free of masses and synovitis and gliding smoothly in the sheath without crepitus or triggering. I irrigated with normal saline and closed with 4-0 chromic. A dressing of xeroform, 4x4, seth, and sung bandage was applied after the tourniquet was let down noting the hand was warm and well perfused. The patient was then awaken from anesthesia and transferred to the recovery room in stable condition.? Complications - none EBL- 0cc Disposition - home in stable conditions gt lloyd pa-c was essential for positioning, retraction, closure and dressing placement [facility] [place] Billing Surgery - Charge Forward: Surgery Billing ([id number])
--- NOTE | 2024-05-12 07:02 | PM.HPGS ---
History of Present Illness History of Present Illness Chief complaint: Left Ring Trigger Finger Narrative: Patient seen and examined in pre-operative holding area. No interval change in medical history or symptoms. Patient recalls previous discussion of benefits and alternatives to procedure. Continues to desire to proceed with left ring finger a1 cathi release. Reviewed procedure, post-op expectations and risks including but not limited to bleeding, infection, injury to tendon/nerve/vessel, decreased hand function, stiffness, RSD, no change or worsening of symptoms. I discussed the possible use of assistants and their participation in the case. 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) Family History Family History Mother Family history of malignant neoplasm of breast in first degree relative Father Stomach cancer Alcoholism Social History Social History Smoking packs per day: 2 Smoking cigarettes per day: 40.0 Years smoked: 40 Smoking pack-years: 80.00 Smoking status: Former smoker Tobacco type: cigarettes and smokeless tobacco Smokeless tobacco user: chewing tobacco Second hand tobacco smoke exposure: No Smoking end date: 12/21/99 Alcohol intake: current Drinks per week: 2 Substance use: never Lack of Transportation: No Lack of Food: Sometimes True Current Housing: I Have Housing Concerned About Future Housing: No Difficulty Paying Gas/Electric Bills: YES Difficulty Paying for Meds: YES Currently Unemployed: No Education: High School Diploma/GED Difficulty w/ Childcare or Family Care: No Living arrangements: with family Additional living arrangements comments: 2 boys Occupation/Education: retired Gender identity (if verbalized by the patient): Male Spiritual care concerns: No Agree to blood products: No Meds Home Medications and Allergies Home Medications Medication Instructions Recorded Confirmed Type lutein 20 mg tablet 40 mg PO DAILY 03/21/20 05/12/24 History clopidogrel 75 mg tablet 75 mg PO QAM #30 tabs 07/20/20 05/12/24 Rx amlodipine 5 mg tablet 5 mg PO DAILY 03/24/22 05/12/24 History isosorbide mononitrate 30 mg 30 mg PO DAILY 03/24/22 05/12/24 History tablet,extended release 24 hr rcmwjulz-esn- 250 mg-dha 90 1 cap PO DAILY 03/24/22 05/12/24 History mg-epa 160 [id number] capsule (Ocuvite Adult 50 Plus) empagliflozin 10 mg tablet 10 mg PO DAILY #30 tabs 09/16/22 05/12/24 Rx (Jardiance) cyanocobalamin (vitamin B-12) 5,000 mcg PO DAILY #30 caps 09/18/22 05/12/24 Rx 5,000 mcg capsule cholecalciferol (vitamin D3) 50 50 mcg PO DAILY #30 caps 09/22/22 05/12/24 Rx mcg (2,000 unit) capsule metoprolol succinate 25 mg 25 mg PO DAILY 09/16/23 05/12/24 History tablet,extended release 24 hr ezetimibe 10 mg-rosuvastatin 10 mg 1 tablet PO DAILY 12/14/23 05/12/24 History tablet faricimab-svoa 6 mg/0.05 mL 6 mg intravitreal .[id number] 12/14/23 05/12/24 History intravitreal solution (Vabysmo) ranolazine 500 mg tablet,extended 500 mg PO Q12H 12/14/23 05/12/24 History release,12 hr tramadol 50 mg tablet 50 mg PO Q6H PRN pain #12 tabs 05/12/24 Rx Allergies Allergy/AdvReac Type Severity Reaction Status Date / Time Penicillins AdvReac Intermediate Nausea, Verified 05/12/24 09:04 HEADACHE Exam Narrative: unchanged Assessment and Plan Assessment and plan (1) Trigger finger, left ring finger: Code(s): M65.342 - Trigger finger, left ring finger Status: Acute Assessment and Plan: cont as above
[2024-05-12 09:30] VITALS: BMI 26.3
[2024-05-12 09:32] VITALS: BP 130/93; PULSE 83; RESP 18; TEMP 36.3; O2SAT 99
[2024-05-12] MEDS: LACTATED RINGERS 1,000 ML 30 ML IV CONT (09:35)
--- NOTE | 2024-05-12 09:50 | P.PNAN_ITS ---
Anes - Initial Pre Proc Eval Procedure: Operation Date: 05/12/24 11:00 Proposed Procedures p A-1 Papo Release Left Ring Finger - Maverick Tripathi MD Date/Time: 05/12/24 09:50 Surgeon: Maverick Tripathi MD Pre Op Diagnosis: Left Ring Trigger Finger Patient Data Age: 78 Gender: M Height: 1.78 m Weight: 83.3 kg Last Vital Signs Temp 36.3 C L 05/12/24 09:32 Pulse 83 05/12/24 09:32 Resp 18 05/12/24 09:32 BP 130/93 H 05/12/24 09:32 Pulse Ox 99 05/12/24 09:32 O2 Del Method Room Air 05/12/24 09:32 Allergies Allergy/AdvReac Type Severity Reaction Status Date / Time Penicillins AdvReac Intermediate Nausea, Verified 05/12/24 09:04 HEADACHE Home Medications Medication Instructions Recorded Confirmed Type lutein 20 mg tablet 40 mg PO DAILY 03/21/20 05/12/24 History clopidogrel 75 mg tablet 75 mg PO QAM #30 tabs 07/20/20 05/12/24 Rx amlodipine 5 mg tablet 5 mg PO DAILY 03/24/22 05/12/24 History isosorbide mononitrate 30 mg 30 mg PO DAILY 03/24/22 05/12/24 History tablet,extended release 24 hr ftydwnng-rlh-uyjtg9 250 mg-dha 90 1 cap PO DAILY 03/24/22 05/12/24 History mg-epa 160 rm-cfrs-orvg-zeax capsule (Ocuvite Adult 50 Plus) empagliflozin 10 mg tablet 10 mg PO DAILY #30 tabs 09/16/22 05/12/24 Rx (Jardiance) cyanocobalamin (vitamin B-12) 5,000 mcg PO DAILY #30 caps 09/18/22 05/12/24 Rx 5,000 mcg capsule cholecalciferol (vitamin D3) 50 50 mcg PO DAILY #30 caps 09/22/22 05/12/24 Rx mcg (2,000 unit) capsule metoprolol succinate 25 mg 25 mg PO DAILY 09/16/23 05/12/24 History tablet,extended release 24 hr ezetimibe 10 mg-rosuvastatin 10 mg 1 tablet PO DAILY 12/14/23 05/12/24 History tablet faricimab-svoa 6 mg/0.05 mL 6 mg intravitreal .[id number] 12/14/23 05/12/24 History intravitreal solution (Vabysmo) ranolazine 500 mg tablet,extended 500 mg PO Q12H 12/14/23 05/12/24 History release,12 hr tramadol 50 mg tablet 50 mg PO Q6H PRN pain #12 tabs 05/12/24 Rx Patient hx anesthesia problems: none Family hx anesthesia problems: none Results Review: All pre-operative results and documents have been reviewed as part of the pre- operative evaluation. 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) Family History Family History Mother Family history of malignant neoplasm of breast in first degree relative Father Stomach cancer Alcoholism Social History Social History Smoking packs per day: 2 Smoking cigarettes per day: 40.0 Years smoked: 40 Smoking pack-years: 80.00 Smoking status: Former smoker Tobacco type: cigarettes and smokeless tobacco Smokeless tobacco user: chewing tobacco Second hand tobacco smoke exposure: No Smoking end date: 12/21/99 Alcohol intake: current Drinks per week: 2 Substance use: never Lack of Transportation: No Lack of Food: Sometimes True Current Housing: I Have Housing Concerned About Future Housing: No Difficulty Paying Gas/Electric Bills: YES Difficulty Paying for Meds: YES Currently Unemployed: No Education: High School Diploma/GED Difficulty w/ Childcare or Family Care: No Living arrangements: with family Additional living arrangements comments: 2 boys Occupation/Education: retired Gender identity (if verbalized by the patient): Male Spiritual care concerns: No Agree to blood products: No Anes - Eval Final PreProcedure Day of Procedure 05/12/24 09:50 Patient weight: normal Heart: regular rate and rhythm Lungs: clear to auscultation Airway: Mallampati scale (missing teeth) class II Neurological: alert and oriented Last oral intake: >/= 8 hours ASA classification: III Emergent: no Anesthetic plan: proceed Anesthesia type and monitoring: general GIVS and standard monitoring Results Review: All pre-operative results and documents have been reviewed as part of the pre- operative evaluation. Informed Consent: The patient's anesthetic plan and its attendant risks and benefits were discussed with the patient/family/POA. Questions were solicited and answers provided to the satisfaction of the patient/family/POA.
[2024-05-12] MEDS: ceFAZolin SODIUM 2 GM/20 ML SW SYRINGE IV PUSH (09:54)
[2024-05-12] MEDS: BUPivacaine HCL 0.5% PF 30 ML VIAL 5 ML INFILTRATE (09:59)
[2024-05-12] MEDS: LIDOCAINE HCL 1% LOCAL INJ 20 ML VIAL 5 ML INFILTRATE (09:59)
[2024-05-12 10:15] VITALS: BP 118/83; PULSE 71; RESP 16; O2SAT 96
[2024-05-12 10:45] VITALS: BP 136/89; PULSE 65; RESP 18; O2SAT 100
--- NOTE | 2024-05-12 10:51 | WPDANESPN ---
Anes - Prog Note Post-Op Date/Time: 05/12/24 10:51 Cardiovascular status: normal Respiratory status: normal Airway patency: baseline Mental status: baseline Post-Op hydration status: normal Vital Signs: Last Vital Signs Temp 36.3 C L 05/12/24 09:32 Pulse 71 05/12/24 10:15 Resp 16 05/12/24 10:15 BP 118/83 05/12/24 10:15 Pulse Ox 96 05/12/24 10:15 O2 Del Method Room Air 05/12/24 10:15 Pain Score (VAS): 07/01 I/O: Intake & Output 05/11/24 05/12/24 05/12/24 23:59 07:59 15:59 Intake Total 0 Balance 0 Post-procedural complaints: none Patient Feedback: Patient satisfied with anesthetic care.
== END 2024-05-12 10:57 | disposition home or self-care (01) ==
LOC: ASC 08:58
PROVIDERS: PCP Family Medicine; Visit Provider Plastic Surgery
PROC: (CPT 26055; principal; 2024-05-12 11:00)
DX: M65.342 Trigger finger, left ring finger (principal)
CPT/HCPCS: 26055

== ENCOUNTER 2024-05-16 07:20 | Outpatient (CLI) | payer MEDICARE, SELFPAY ==
--- NOTE | ~2024-05-16 | US_ITS ---
Complete ABDOMINAL ULTRASOUND (Doppler ultrasound interrogation techniques used as needed for this ex am.) Ordering provider: Gardenia Mike NP History: . R10.11 - Right upper quadrant pain . Comparison: None. FINDINGS: PANCREAS: Not visualized. PORTAL VEIN: Hepatopedal flow demonstrated. LIVER: Normal size and heterogeneous echotexture. No focal hepatic lesions or perihepatic fluid colle ctions are identified. BILIARY DUCTS: No intra or extrahepatic biliary dilation. Common bile duct measures 2.2 mm in diamete r which is normal for patient's age. GALLBLADDER: Normal. No stones, sludge, gallbladder wall thickening or pericholecystic fluid. Negati ve sonographic Centeno's sign. Spleen: Measures 9.1 cm. No definite abnormality seen. RIGHT KIDNEY: Normal size. Measures 11.4 x 5.4 x 5.3 cm. No hydronephrosis, solid renal mass, renal c alculi or perinephric fluid collections. A simple cyst is seen measuring 2.2 x 2.5 x 1.7 cm. Left KIDNEY: Normal size. Measures 11 x 4.8 x 5.2 cm. No hydronephrosis, solid renal mass, renal calc angela or perinephric fluid collections. No renal cysts. Abdominal aorta: Abdominal aortic aneurysm is seen measuring [address] evaluation advised. IVC: Normal. FREE FLUID: None visualized within the upper abdomen. IMPRESSION: Abdominal aortic aneurysm. CT evaluation advised. Heterogenous echogenicity of the liver which may in dicate cirrhotic changes. Clinical correlation advised. Otherwise, normal abdominal ultrasound. Reviewed, dictated and finalized at location A. T CYLINDER LOADER IMPRESSION: Abdominal aortic aneurysm. CT evaluation advised. Heterogenous echogenicity of the liver which may indicate cirrhotic changes. Clinical correlation advised. O therwise, normal abdominal ultrasound.
[2024-05-16 07:39] LABS: Hematocrit 45.9 % (37.0-46.0); Mean Corpuscular HGB Conc 34.9 g/dL (32-36); Mean Corpuscular Hemoglobin 32.7 pg (27.0-31.0); Mean Corpuscular Volume 93.7 fL (78.0-102.0); Mean Platelet Volume 9.1 fl (8.7-11.0); Platelet Count Result 271 K/mm3 (150-420); Red Cell Distribution Width 12.7 % (11.6-14.4)
[2024-05-16 09:15] LABS: Alanine Aminotransferase 29 U/L (16-63); Albumin Level 3.6 g/dL (3.4-5.0); Alkaline Phosphatase 86 U/L (46-116); Amylase 35 U/L (25-115); Anion Gap 11 mmol/L (4-12); Aspartate Amino Transferase 23 U/L (15-37); Bilirubin,Total 0.5 mg/dL (0.00-1.00); Blood Urea Nitrogen 14 mg/dL (7-18); Calcium 9.4 mg/dL (8.5-10.1); Carbon Dioxide 25 mmol/L (21-32); Chloride 104 mmol/L (98-108); Estimated Glomerular Filt Rate > 60; Glucose 91 mg/dL (70-99); Lipase 41 U/L (16-77); Osmolality Calculated 290 mOsm/kg (285-295); Potassium 4.2 mmol/L (3.5-5.1); Sodium 140 mmol/L (136-145); Total Protein 6.8 g/dL (6.4-8.2)
[2024-05-16 10:21] LABS: Band Neutrophils Percent 0 % (0-6); Basophils Absolute Manual 0.06 K/mm3 (0-0.1); Basophils Percent Manual 1 % (0-1); Eosinophils Absolute Manual 0.24 K/mm3 (0.02-0.50); Eosinophils Percent Manual 4 % (1-6); Lymphocytes Absolute Manual 2.46 K/mm3 (1.1-4.5); Lymphocytes Percent Manual 41 % (18-44); Monocytes Absolute Manual 1.02 K/mm3 (0.1-0.90); Monocytes Percent Manual 17 % (3-9); Neutrophils Absolute Manual 2.22 K/mm3 (1.3-6.7); Neutrophils Percent Manual 37 % (46-73); Platelet Estimate Adequate (Adequate); Total Cells Counted 100
[2024-05-16 10:22] LABS: Schistocytes None Seen
[2024-05-18 04:44] LABS: Hepatitis B Surface Antigen NON-REACTIVE (NON-REACTIVE); Hepatitis C Virus Antibody NON-REACTIVE (NON-REACTIVE)
[2024-05-18 05:33] LABS: Hepatitis A Antibody IgM NON-REACTIVE (NON-REACTIVE); Hepatitis B Core Antibody NON-REACTIVE (NON-REACTIVE)
== END 2024-05-16 07:21 | disposition home or self-care (01) ==
LOC: CHSIMG 07:23
PROVIDERS: PCP Nurse Practitioner Family; Visit Provider Nurse Practitioner Family
DX: R53.83 Other fatigue (principal); R11.2 Nausea with vomiting, unspecified; R10.11 Right upper quadrant pain; I71.40 Abdominal aortic aneurysm, without rupture, unspecified
CPT/HCPCS: 36415; 76700; 80053; 80074; 82150; 83690; 85025

== ENCOUNTER 2024-05-21 06:57 | Outpatient (CLI) | payer MEDICARE, SELFPAY ==
--- NOTE | ~2024-05-21 | MR_ITS ---
EXAMINATION: MR cervical spine wo con DATE: 05/21/2024 07:44 INDICATION: Neck pain. TECHNIQUE: Magnetic resonance imaging (MRI) of the cervical spine was performed without intravenous c ontrast. Sequences included sagittal T2-weighted FSE, sagittal T2-weighted FS FSE, sagittal T1-weight ed FSE, axial MERGE, and axial T2-weighted FSE. COMPARISON: None FINDINGS: There is kyphosis of cervical spine. There is 2 mm retrolisthesis of C5 on C6. Vertebral marin dy heights are normal. There is severely decreased disc height at C4-C5 and C5-C6 and moderately decr eased disc height at C6-C7. The spinal cord signal intensity is normal. The following disc levels are specifically discussed: C2-C3: The disc does not extend beyond the endplate margin. There is no uncovertebral joint osteoarth ritis. There is severe bilateral facet joint osteoarthritis. There is mild right and moderate left ne ural foraminal stenosis. There is no central canal stenosis. C3-C4: The disc does not extend beyond the endplate margin. There is ankylosis of the uncovertebral j oints without hypertrophy. There is mild right facet joint osteoarthritis.. There is ankylosis of lef t facet joint with severe hypertrophy. There is moderate left neural foraminal stenosis. There is no central canal stenosis. C4-C5: The disc is bulging. There is severe bilateral uncovertebral joint osteoarthritis. There is mi ld bilateral facet joint osteoarthritis. There is moderate bilateral neural foraminal stenosis. There is moderate central canal stenosis with ventral and dorsal indentation of the spinal cord. C5-C6: The disc is bulging. There is severe bilateral uncovertebral joint osteoarthritis. There is mi ld bilateral facet joint osteoarthritis. There is moderate bilateral neural foraminal stenosis. There is moderate central canal stenosis with ventral and dorsal indentation of the spinal cord. C6-C7: The disc is bulging. There is severe bilateral uncovertebral joint osteoarthritis. There is mi ld bilateral facet joint osteoarthritis. There is moderate bilateral neural foraminal stenosis. There is mild central canal stenosis. C7-T1: The disc does not extend beyond the endplate margin. There is no uncovertebral joint osteoarth ritis. There is severe bilateral facet joint osteoarthritis. There is mild bilateral neural foraminal stenosis. There is no central canal stenosis. IMPRESSION: 1. Severe cervical spondylosis. Reviewed, dictated and finalized at location A. [employer] FORCE ADJUSTMENT
== END 2024-05-21 06:58 | disposition home or self-care (01) ==
PROVIDERS: PCP Family Medicine; Visit Provider Nurse Practitioner Family
DX: M47.22 Other spondylosis with radiculopathy, cervical region (principal); M47.12 Other spondylosis with myelopathy, cervical region
CPT/HCPCS: 72141

== ENCOUNTER 2024-05-24 08:39 | Outpatient (CLI) | payer MEDICARE, SELFPAY ==
--- NOTE | ~2024-05-24 | CT_ITS ---
EXAMINATION: CTA chest abdomen pelvis DATE: 05/24/2024 09:08 INDICATION: Abdominal aortic aneurysm. Right chest pain. TECHNIQUE: Computed tomographic angiography (CTA) of the chest, abdomen, and pelvis was performed wit h 100 mL Omnipaque-350 intravenous contrast. Automated exposure control and iterative reconstruction technique were employed. The dose-length product was 672.06 mGy-cm. Maximum intensity projection 3D-r econstructions of the aorta and other arteries were constructed by the technologist on a separate wor kstation. COMPARISON: Chest CT 09/21/2019, 04/19/12 FINDINGS: CHEST CTA: There is mild scarring at the lung apices. There is mild atelectasis bilaterally. A calcified right l tank nodule and calcified right hilar lymph nodes are consistent with old granulomatous disease. The h eart size is normal. There are coronary artery calcifications. No pericardial effusion. There is mild aortic atherosclerosis. Thoracic aorta is normal in caliber. There is mild thoracic spondylosis. The re are old healed right rib fractures. ABDOMEN AND PELVIS CTA: The liver, gallbladder, and adrenal glands are normal. Calcifications in the spleen are consistent wi th old granulomatous disease. There is a 1.6 cm cyst in the head of the pancreas. There are peripelvi c cysts in the kidneys measuring up to 2.9 cm on the right. The prostate is moderately enlarged. Ther e are changes of bilateral inguinal hernia repairs. There is diverticulosis of the colon without evid ence of diverticulitis. The appendix is normal. There are no dilated loops of bowel. Aortic atheroscl erosis is noted. The aorta is normal in caliber. There is no significant stenosis of celiac axis, sup erior mesenteric artery, inferior mesenteric artery, or the renal arteries. There are no pathological ly enlarged lymph nodes. There is no free intraperitoneal fluid. L5 is a transitional segment. There are chronic bilateral L4 pars defects. There is 10 mm anterolisthesis of L4 on L5. There is severe jack mbar spondylosis. IMPRESSION: 1. Aortic atherosclerosis. No aneurysm or dissection. 2. 1.6 cm cystic lesion of the pancreas. The differential diagnosis includes pseudocyst, intraductal papillary mucinous neoplasm (IPMN), mucinous cystic neoplasm (MCN), serous cystadenoma, and neuroendo crine tumor. Abdomen MRI without and with contrast is recommended in 6 months. Reviewed, dictated and finalized at location A. RONMENTAL SERVICES WORKER IMPRESSION: 1. Aortic atherosclerosis. No aneurysm or dissection. 2. 1.6 cm cystic lesion of the pancreas. The differential diagnosis includes ps eudocyst, intraductal papillary mucinous neoplasm (IPMN), mucinous cystic neopl asm (MCN), serous cystadenoma, and neuroendocrine tumor. Abdomen MRI without an d with contrast is recommended in 6 months.
== END 2024-05-24 08:40 | disposition home or self-care (01) ==
LOC: CHSIMG 08:41
PROVIDERS: PCP Family Medicine; Visit Provider Nurse Practitioner Family
DX: I71.40 Abdominal aortic aneurysm, without rupture, unspecified (principal); I70.0 Atherosclerosis of aorta; K86.9 Disease of pancreas, unspecified
CPT/HCPCS: 71275; 74174; Q9967

== ENCOUNTER 2024-06-29 13:51 | Outpatient (CLI) | payer MEDICARE, SELFPAY ==
[2024-06-29 14:17] LABS: Basophils Absolute Auto 0.1 K/mm3 (0.0-0.1); Basophils Percent Auto 0.8 % (0.2-1.2); Eosinophils Absolute Auto 0.1 K/mm3 (0-0.3); Hematocrit 46.3 % (42.0-52.0); Hemoglobin 15.5 g/dL (14.0-18.0); Immature Granulocyte Absolute 0.01 K/mm3 (0.00-0.031); Immature Granulocyte Percent A 0.2 % (0-0.5); Lymphocytes Absolute Auto 2.14 K/mm3 (0.9-3.2); Lymphocytes Percent Auto 35.6 % (18.3-44.2); Mean Corpuscular HGB Conc 33.5 g/dl (32-36); Mean Corpuscular Hemoglobin 32.4 pg (26-34); Mean Corpuscular Volume 96.7 fl (80-100); Mean Platelet Volume 8.9 fl (7.4-10.4); Monocytes Absolute Auto 0.6 K/mm3 (0.1-0.6); Monocytes Percent Auto 10.6 % (2.6-8.5); Neutrophils Absolute Auto 3.1 K/mm3 (1.3-6.7); Neutrophils Percent Auto 50.8 % (45.5-73.1); Platelet Count Result 298 k/mm3 (150-375); Red Blood Count 4.79 M/mm3 (4.6-6.20); Red Cell Distribution Width 12.9 % (11.5-14.5)
[2024-06-29 15:39] LABS: Alanine Aminotransferase 31 U/L (6-50); Albumin Level 4.2 g/dL (3.5-5.1); Alkaline Phosphatase 86 U/L (38-126); Anion Gap 4 mmol/L (4-12); Aspartate Amino Transferase 28 U/L (17-59); Bilirubin,Total 0.5 mg/dL (0.2-1.3); Blood Urea Nitrogen 14 mg/dL (9-20); Calcium 9.3 mg/dL (8.4-10.2); Carbon Dioxide 30 mmol/L (22-30); Chloride 104 mmol/L (98-107); Estimated Glomerular Filt Rate > 60; Glucose 85 mg/dL (65-110); Potassium 4.2 mmol/L (3.4-5.0); Sodium 138 mmol/L (137-145)
[2024-06-30 07:30] LABS: CA 19-9 30 U/mL (<34)
== END 2024-06-29 13:52 | disposition home or self-care (01) ==
LOC: ANHLAB 13:56
PROVIDERS: PCP Family Medicine; Visit Provider Internal Medicine Hematology & Oncology
DX: C25.9 Malignant neoplasm of pancreas, unspecified (principal)
CPT/HCPCS: 36415; 80053; 85025; 86301

== ENCOUNTER 2024-07-27 14:37 | Outpatient (CLI) | payer MEDICARE, SELFPAY ==
[2024-07-27 14:53] LABS: Basophils Absolute Auto 0.1 K/mm3 (0.0-0.1); Basophils Percent Auto 0.9 % (0.2-1.2); Eosinophils Absolute Auto 0.1 K/mm3 (0-0.3); Eosinophils Percent Auto 1.5 % (0-4.4); Hemoglobin 15.1 g/dL (14.0-18.0); Immature Granulocyte Absolute 0.01 K/mm3 (0.00-0.031); Immature Granulocyte Percent A 0.2 % (0-0.5); Lymphocytes Absolute Auto 1.94 K/mm3 (0.9-3.2); Lymphocytes Percent Auto 36.5 % (18.3-44.2); Mean Corpuscular HGB Conc 33.6 g/dl (32-36); Mean Corpuscular Hemoglobin 32.3 pg (26-34); Mean Corpuscular Volume 96.2 fl (80-100); Mean Platelet Volume 9.3 fl (7.4-10.4); Monocytes Absolute Auto 0.7 K/mm3 (0.1-0.6); Monocytes Percent Auto 12.6 % (2.6-8.5); Neutrophils Absolute Auto 2.6 K/mm3 (1.3-6.7); Neutrophils Percent Auto 48.3 % (45.5-73.1); Platelet Count Result 276 k/mm3 (150-375); Red Blood Count 4.68 M/mm3 (4.6-6.20); White Blood Count 5.3 K/mm3 (4.5-10.0)
[2024-07-27 14:56] LABS: Blood Urea Nitrogen 18 mg/dL (8-26); Carbon Dioxide 27 mmol/L (22-30); Chloride 105 mmol/L (98-109); Estimated Glomerular Filt Rate > 60; Glucose 85 mg/dL (70-105); Ionized Calcium (POC) 1.17 mmol/L (1.11-1.31); Sodium 142 mmol/L (138-146)
--- OUTSIDE RECORDS SUMMARY | 2024-07-27 15:22 | XMS_ITS | Encounter Summary ---
Author Organization [facility] (FORMERLY [facility])[3] [facility] Address [address] [place] [address] Care Team Providers Care Customer Service Technician Name Role Phone Unavailable Primary Care Provider Unavailabl e Encounter Details Date Type Department Care Team (Late st Contact Info) Description 07/27/2024 Orders Only [facility] Oncology [facility] Hematology [facility] [address] [place] [address] Tad Duckworth MD [address] [place] [id number] Social History Tobacco Use Types Packs/Day Years Used Date Smoking Tobacco: Never Smokeless Tobacco: Never Alcohol Use Standard Drinks/Week Comments Yes 0 (1 standard drink = 0.6 oz pur e alcohol) holidays Sex and Gender Information Value Date Recorded Sex Assigned at Male 07/01/2024 8:25 AM HOSPITALITY JOB TITLES Legal Sex Male 9:04 AM HOSPITALITY JOB TITLES Gender Identity Not on file Sexual Orientation Asexual 07/01/2024 8: 25 AM HOSPITALITY JOB TITLES documented as of this encounter Plan of Treatment Upcoming Encounters Date Type Department Care Team (Late st Contact Info) Description 01/25/2025 11:30 AM CDT Office Visit [facility] Oncology [facility] Hematology [facility] [address] [place] [address] Tad Duckworth MD [address] [place] [address] 04/20/2025 1:00 PM CDT Office Visit [facility] Surgical Oncology [place] [address] [facility] [address] [place] [address] Mary Khanna MD [address] [facility] [address] [place] [address] documented as of this encounter Procedures Procedure Name Priority Date/Time Associated Diagnosis Comments CBC WITH DIFFERENTIAL Routine 07/27/2024 3:08 PM HOSPITALITY JOB TITLES documented in this encounter Results * CBC WITH DIFFERENTIAL (07/27/2024 3:08 PM HOSPITALITY JOB TITLES) Blood us Tad Duckworth MD HEMATOLOGY ORDERABLES Final Res ult documented in this encounter Visit Diagnoses Not on filedocumented in this encounter
--- OUTSIDE RECORDS SUMMARY | 2024-07-27 15:22 | XMS_ITS ---
Author Organization [facility] Address [address] [facility] [address] Care Team Providers Care Hull And Deck Remover Name Role Phone Unavailable Primary Care Provider Unavailabl e Active Problems Problem Noted Date Diagnosed Date Pancreatic cancer 07/27/2024 Current Treatment and Therapy Plans No current plan information found. Past Treatment and Therapy Plans No past plan information found. Lifetime Dose Tracking * Chemical Lifetime Dose Automatic Entry Manual Entr y Effective Dose 54.82 mSv 54.82 mSv 0 mSv Total DLP 1,292.55 DLP 1,292.55 DLP 0 DLP CTDIvol Max 12.75 mGy 12.75 mGy 0 mGy CTDIvol Min 8.48 mGy 8.48 mGy 0 mGy
--- OUTSIDE RECORDS SUMMARY | 2024-07-27 15:22 | XMS_ITS | Clinical Summary ---
Author Organization [facility] [place] [address] Address [address] [place] [address] Care Team Providers Care Business Unit Leader Name Role Phone AkirafeliciazakiCodyrish Primary Care Provider Allergies Active Allergy Reactions Criticality Noted Date Comments Rosuvastatin Shortness of breath,Dizziness,Fatigue High 05/25/2024 Penicillins Nausea only Medium 11/08/2018 Medications beta-carotene,A, -vits C,E/mins (VISION FORMULA ORAL) Take 1 tablet by mouth daily Active lutein 40 mg capsule Take 40 mg by mouth daily Active empagliflozin (JARDIANCE) 10 mg tablet Take 1 tablet (10 mg total) by mouth daily 90 tablet 1 06/17/2022 Active ferrous sulfate ER 324 mg (65 mg iron) EC tabletIndication s:Iron Deficiency Anemia Take 65 mg by mouth Active isosorbide mononitrate ER (IMDUR) 30 mg 24 hr tabletIndication s: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) TAKE ONE TABLET BY MOUTH DAILY 30 tablet 11 06/08/2023 Active amLODIPine (NORVASC) 5 mg tablet TAKE ONE TABLET BY MOUTH DAILY 90 tablet 2 06/09/2023 Active ranolazine ER (RANEXA) 500 mg 12 hr tablet Take 1 tablet (500 mg total) by mouth 2 (two) times a day 60 tablet 11 11/09/2023 11/09/19 25 Active ezetimibe (ZETIA) 10 mg tablet Take 1 tablet (10 mg total) by mouth daily 30 tablet 11 11/09/2023 11/09/19 25 Active clopidogreL (PLAVIX) 75 mg tablet TAKE ONE TABLET BY MOUTH EVERY MORNING 30 tablet 5 01/18/2024 Active metoprolol XL (TOPROL-XL) 25 mg extended release tablet TAKE ONE TABLET BY MOUTH DAILY 30 tablet 11 02/26/2024 Active Active Problems Problem Noted Date Diagnosed Date Dyslipidemia 05/25/2024 Abnormal stress test 02/14/2022 Overview (02/14/2022): Added automatically from request for surgery [id number] PLMD (periodic limb movement disorder) Spell of altered cognition 01/23/2021 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 (CMS/HCC) 12/13/2019 Overview (12/13/2019): Added automatically from request for surgery [id number] Encounters Date Type Department Care Team Description 05/26/2024 10:00 AM CAR RETARDER OPERATOR Infusion [facility] Non-Oncology Infusion [address] [place] [address] Coronary artery disease involving tuscarora heart with angina pectoris, unspecified vessel or lesion type (HCC) (Primary Dx); Dyslipidemia 05/25/2024 8:30 AM CAR RETARDER OPERATOR Office Visit [facility] Card[facility] [address] [place] [phone] Shaun Jones MD 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) (Primary Dx); Status post angioplasty with stent; Statin intolerance 05/25/2024 Telephone [facility] Cardiology [address] [facility] [address] [place] [phone] Shaun Jones MD 05/25/2024 Orders Only [facility] Non-Oncology Infusion [address] [place] [address] Shaun Jones MD 05/25/2024 Orders Only [facility] Non-Oncology Infusion [address] [place] [address] Shaun Jones MD Dyslipidemia (Primary Dx); Coronary artery disease involving tuscarora heart with angina pectoris, unspecified vessel or lesion type (HCC) 05/25/2024 Orders Only [facility] Non-Oncology Infusion [address] [place] [address] Shaun Jones MD from Last 3 Months Surgical History Surgery Date Site/Laterality Comments HERNIA REPAIR CATARACT EXTRACTION JOINT REPLACEMENT Left knee replacement CORONARY ANGIOPLASTY WITH STENT PLACEMENT VASECTOMY Medical History Medical History Date Comments AAA (abdominal aortic aneurysm) (HCC) GERD (gastroesophageal reflux disease) 09/2019 SOB (shortness of breath) on exertion Motion sickness CAD (coronary artery disease) HL (hearing loss) Cataract Full dentures upper and lowers Arthritis Heart disease Blindness Mixed conductive and sensorineural hearing loss Family History Medical History Relation Name Comments Cancer Father t r pfalzgraf Cancer Mother m c pfalzgraf Vision loss Mother m abbey pfalzgraf Relation Name Status Comments Father t r pfalzgraf Mother m c pfalzgraf Social History Tobacco Use Types Packs/Day Years Used Date Smoking Tobacco: Former Cigarettes Q uit: 1956 Smokeless Tobacco: Former Chew Quit: 03/31/1987 Tobacco Cessation:Counseling Given: Not Answered Comments:Quit 35 yrs ago Alcohol Use Standard Drinks/Week Comments Not Currently 0 (1 standard drink = 0.6 oz pur e alcohol) AUDIT-C Answer Date Recorded Q1: How often do you have a drink containing alc ohol? Monthly or less 03/13/2022 Q2: How many drinks containi ng alcohol do you have on a typical day when you are drinking? 1 or 2 03/13/2022 Q3: How often do you have si x or more drinks on one occasion? Never 03/13/2022 Personal Safety Answer Date Recorded Have you ever been in or are you currently in a harmful physical or emotional relationship or is someone making you feel afraid or unsafe? Denies 05/26/2024 Sex and Gender Information Value Date Recorded Sex Assigned at Not on file Legal Sex Male 8:53 AM CDT Gender Identity Male 12/30/2019 7:36 PM CDT Sexual Orientation Straight 12/30/2019 7: 36 PM CDT Obstetrics History Last Filed Vital Signs Vital Sign Reading Time Taken Comments Blood Pressure 167/94 05/26/2024 10:15 AM CAR RETARDER OPERATOR Pulse 85 05/26/2024 10:10 AM CAR RETARDER OPERATOR Temperature 36.8 C (98.2 F) 05/26/2024 10:10 AM CAR RETARDER OPERATOR Respiratory Rate 18 05/26/2024 10:1 0 AM CAR RETARDER OPERATOR Oxygen Saturation 100% 05/26/2024 10: 10 AM CAR RETARDER OPERATOR Inhaled Oxygen Concentration - - Weight 84.3 kg (185 lb 14.4 oz) 05/25/2024 8:16 AM CAR RETARDER OPERATOR Height 177.8 cm (5' 10 ) 05/25/2024 8:16 AM CAR RETARDER OPERATOR Body Mass Index 26.67 05/25/2024 8:16 AM CAR RETARDER OPERATOR Plan of Treatment Health Maintenance Due Date Last Done Comments Depression Screening 1945 Hepatitis C Screening 1945 Pneumococcal vaccine 65+ (1 of 2 - PCV) 1952 DTaP/Tdap/Td Vaccine (1 - Tdap) 1957 Hepatitis B Screening 1964 Zoster Vaccine (1 of 2) 1996 Well Visit 65+ 09/30/2011 Influenza Vaccine (#1) 2024 07/12/2019 Fall Risk Assessment 05/26/2025 05/26/2024, 04/17/2021, 01/04/2020 Abdominal Aortic Aneurysm (A AA) Screen Completed 10/24/2022, 10/22/2022, 01/13/2022, Additional history exists Medical Devices Implanted Type Area Sports Journalist Device Identifier Shelf Expiration Date Model / Serial / Lot Other - See Comments Other - see comments Left: Knee Description:Prosthetic knee, 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 [employer] [id number] Device Ventricular Assist 17.4x13.8in Impella Cp 9.3in 1040 - [id number] Implanted:Qty: 1 on 12/15/2019 by Shaun Jones MD at [facility] [employer] [id number] / / [employer] X [id number] Resolute Jesus 4.5mm 2.1-2.7fr 15mm 140cm Rapid Exchange - [id number] Implanted:Qty: 1 on 12/15/2019 by Shaun Jones MD at [facility] [employer] [id number] 06/04/2021 [id number] 15UX / / [id number] [employer] [id number] Synergy 3mm 16mm 144cm Radiopaque 1 Access Port Inflation Lumen - [id number] Implanted:Qty: 1 on 12/15/2019 by Shaun Jones MD at [facility] [employer] [id number] / / Daig Ida [id number] Device Closure Angio-Seal Vip Bondek-Plus Polyglyd L70 Cm Od6 Fr Odsec.035 In Vascular - [id number] Implanted:Qty: 1 on 12/15/[facility] [id number] / / Insurance [employer] [employer] MEDICARE SUPPLEMENT Care Teams Business Unit Leader Relationship Specialty Start Date End Date Cody Contreras DO [address] [place] [address] PCP - General Family Medicine 05/02/20
--- OUTSIDE RECORDS SUMMARY | 2024-07-27 15:22 | XMS_ITS | Encounter Summary ---
Author Organization [facility] Address [address] [place] [address] Care Team Providers Care User Experience Lead Name Role Phone Unavailable Primary Care Provider Unavailabl e Encounter Details Date Type Department Care Team (Late st Contact Info) Description 07/27/2024 2:30 PM CAD LIBRARIAN Office Visit [facility] Oncology and Hematology - [place] [address] [place] [address] [facility] [address] [place] [address] Tad Duckworth MD [address] [facility] [address] [place] [address] Pancreas carcinoma (CMS/HCC) (Primary Dx) Social History Tobacco Use Types Packs/Day Years Used Date Smoking Tobacco: Never Smokeless Tobacco: Never Alcohol Use Standard Drinks/Week Comments Yes 0 (1 standard drink = 0.6 oz pur e alcohol) holidays Sex and Gender Information Value Date Recorded Sex Assigned at Male 07/01/2024 8:25 AM CAD LIBRARIAN Legal Sex Male 9:04 AM CAD LIBRARIAN Gender Identity Not on file Sexual Orientation Asexual 07/01/2024 8: 25 AM CAD LIBRARIAN documented as of this encounter Last Filed Vital Signs Vital Sign Reading Time Taken Comments Blood Pressure 144/88 07/27/2024 2:54 PM CAD LIBRARIAN Pulse 70 07/27/2024 2:54 PM CAD LIBRARIAN Temperature 36.6 C (97.9 F) 07/27/2024 2:54 PM CAD LIBRARIAN Respiratory Rate 16 07/27/2024 2:54 PM CAD LIBRARIAN Oxygen Saturation 90% 07/27/2024 2:54 PM CAD LIBRARIAN Inhaled Oxygen Concentration - - Weight 83.6 kg (184 lb 3.2 oz) 07/27/2024 2:54 P M CAD LIBRARIAN Height - - Body Mass Index 26.43 07/21/2024 12:47 PM CAD LIBRARIAN documented in this encounter Plan of Treatment Upcoming Encounters Date Type Department Care Team (Late st Contact Info) Description 01/25/2025 11:30 AM CDT Office Visit [facility] Oncology and Hematology - [place] [address] [facility] [address] [place] [address] Tad Duckworth MD [address] [facility] [address] [place] [address] 04/20/2025 1:00 PM CDT Office Visit [facility] Surgical Oncology [place] [address] [facility] [address] [place] [address] Mary Khanna MD [address] [facility] [address] [place] [phone] Scheduled Orders Name Type Priority Associated Diagnoses Orde r Schedule CBC WITH DIFFERENTIAL Lab Stat Pancreas carcinoma (CMS/HCC) Expected: 01/24/2025, Expires: 07/27/2025 COMPREHENSIVE METABOLIC PANEL Lab Stat Pancreas carcinoma (CMS/HCC) Expected: 01/24/2025, Expires: 07/27/2025 CANCER ANTIGEN 19-9 Lab Routine Pancreas carcinoma (CMS/HCC) Expected: 01/24/2025, Expires: 07/27/2025 documented as of this encounter Visit Diagnoses Diagnosis Pancreas carcinoma (CMS/HCC)- Primary Malignant neoplasm of pancreas, part unspecified documented in this encounter
--- OUTSIDE RECORDS SUMMARY | 2024-07-27 15:22 | XMS_ITS | Clinical Summary ---
Author Organization [facility] Jorge Alberto Posada Address [address] [facility] [place] [address] Care Team Providers Care Bench Assembler Electrical Name Role Phone Unavailable Primary Care Provider Unavailabl e Allergies Active Allergy Reactions Criticality Noted Date Comments Penicillins Nausea and Vomiting Medium 11/08/2018 Rosuvastatin Dizziness,Other (See Comments),Shortness of Breath/Wheezing High 05/25/2024 Medications ranolazine ER (RANEXA) 500 mg Extended Release 12 hour tablet Take 500 mg by mouth every 12 hours. Active amLODIPine (NORVASC) 5 mg tablet Take 5 mg by mouth daily. Active metoprolol tartrate (LOPRESSOR) 25 mg tablet Take 25 mg by mouth 2 times daily. Active ezetimibe (ZETIA) 10 mg tablet Take 10 mg by mouth daily. Active isosorbide dinitrate (ISORDIL) 30 mg Tablet Take 30 mg by mouth 3 times daily. Active empagliflozin (Jardiance) 10 mg tablet Take 10 mg by mouth daily in the morning. Active clopidogreL (PLAVIX) 75 mg Tablet Take 75 mg by mouth daily. Active inclisiran (Leqvio) Syringe Inject by subcutaneous injection one time only. Active Active Problems Problem Noted Date Diagnosed Date Pancreatic cancer 07/27/2024 Encounters Date Type Department Care Team Description 07/27/2024 2:30 PM SHEAR HELPER Office Visit [facility] Oncology and Hematology - Norm [address] [place] [address] Tad Duckworth MD Pancreas carcinoma (CMS/HCC) (Primary Dx) 07/27/2024 Orders Only [facility] Oncology and Hematology [facility] [address] [place] [address] Tad Duckworth MD 07/21/2024 1:00 PM SHEAR HELPER Office Visit [facility] Surgical Oncology [place] [address] [place] [address] Mary Khanna MD IPMN (intraductal papillary mucinous neoplasm) (Primary Dx) 07/21/2024 Orders Only [facility] Oncology [place] [address] [place] [address] Mary Khanna MD IPMN (intraductal papillary mucinous neoplasm) (Primary Dx) 07/20/2024 External Device Data STL ABSTRACTION Provider, Abstract 07/20/2024 Telephone [facility]cology [place] [address] [place] [address] Mary Khanna MD Appointment Verification 07/14/2024 External Device Data STL ABSTRACTION Provider, Abstract 07/13/2024 12:30 PM SHEAR HELPER - 07/13/2024 11:59 PM SHEAR HELPER Hospital Encounter [facility] CT Scan [address] [place] [id number] Mary Khanna MD Discharge Disposition: Home or Self Care 07/05/2024 External Device Data STL ABSTRACTION Provider, Abstract 07/04/2024 Orders Only [facility] Oncology and Hematology [facility] [address] [place] [address] Tad Duckworth MD 06/30/2024 Orders Only [facility] Surgical Oncology [place] [address] [place] [address] Mary Khanna MD IPMN (intraductal papillary mucinous neoplasm) (Primary Dx) 06/29/2024 1:30 PM SHEAR HELPER Office Visit [facility] Oncology and Hematology [facility] [address] [place] [address] Tad Duckworth MD IPMN (intraductal papillary mucinous neoplasm) (Primary Dx) from Last 3 Months Family History Medical History Relation Name Comments No Known Problems Brother No Known Problems Child No Known Problems Father Breast Cancer Mother No Known Problems Sister Relation Name Status Comments Brother Alive Child Alive Father Mother Sister Alive Social History Tobacco Use Types Packs/Day Years Used Date Smoking Tobacco: Never Smokeless Tobacco: Never Tobacco Cessation:Counseling Given: Not Answered Alcohol Use Standard Drinks/Week Comments Yes 0 (1 standard drink = 0.6 oz pur e alcohol) holidays Sex and Gender Information Value Date Recorded Sex Assigned at Male 07/01/2024 8:25 AM SHEAR HELPER Legal Sex Male 9:04 AM SHEAR HELPER Gender Identity Not on file Sexual Orientation Asexual 07/01/2024 8: 25 AM SHEAR HELPER Last Filed Vital Signs Vital Sign Reading Time Taken Comments Blood Pressure 144/88 07/27/2024 2:54 PM SHEAR HELPER Pulse 70 07/27/2024 2:54 PM SHEAR HELPER Temperature 36.6 C (97.9 F) 07/27/2024 2:54 PM SHEAR HELPER Respiratory Rate 16 07/27/2024 2:54 PM SHEAR HELPER Oxygen Saturation 90% 07/27/2024 2:54 PM SHEAR HELPER Inhaled Oxygen Concentration - - Weight 83.6 kg (184 lb 3.2 oz) 07/27/2024 2:54 P M SHEAR HELPER Height 177.8 cm (5' 10 ) 07/21/2024 12:47 PM SHEAR HELPER Body Mass Index 26.43 07/21/2024 12:47 PM SHEAR HELPER Plan of Treatment Upcoming Encounters Date Type Department Care Team (Late st Contact Info) Description 01/25/2025 11:30 AM CDT Office Visit [facility] Oncology and Hematology - [place] [address] [facility] [address] [place] [address] Tad Duckworth MD [address] [facility] [address] [place] [address] 04/20/2025 1:00 PM CDT Office Visit [facility] Surgical Oncology [place] [address] [facility] [address] [place] [address] Mary Khanna MD [address] [facility] [address] [place] [address] Health Maintenance Due Date Last Done Comments DTAP/TDAP/TD VACCINES (1 - Tdap) 1964 PNEUMOCOCCAL VACCINE 65+ YEARS (1 of 2 - PCV) 09/29/18 66 Traditional Medicare (ACO) Annual Wellness Visit 09/29 ZOSTER VACCINE (1 of 2) 1996 RSV VACCINE (60+ or ) (1 - 1-dose 75+ series) 2021 INFLUENZA VACCINE (#1) 2024 Procedures Procedure Name Priority Date/Time Associated Diagnosis Comments CBC WITH DIFFERENTIAL Routine 07/27/2024 3:[address] ABDOMEN W WO CONT PELVIS CHEST W CONT Routine 07/13/2024 12:55 PM SHEAR HELPER IPMN (intraductal papillary mucinous neoplasm) POC CREATININE Routine 07/13/2024 12:41 PM SHEAR HELPER CHG CA 19 9 Routine 06/29/2024 1:03 PM SHEAR HELPER COMPREHENSIVE METABOLIC PANEL Routine 06/29/2024 12:45 PM SHEAR HELPER CBC WITH AUTODIFFERENTIAL Routine 06/29/2024 12:02 PM SHEAR HELPER from Last 3 Months Results * CBC WITH DIFFERENTIAL (07/27/2024 3:08 PM SHEAR HELPER) Blood us Tad Duckworth MD HEMATOLOGY ORDERABLES Final Res ult * CT ABDOMEN W WO CONT PELVIS CHEST W CONT (07/13/2024 12:55 PM SHEAR HELPER) Anatomical Region Laterality Modality Abdomen Computed Tomogra phy 07/13/2024 2:00 PM SHEAR HELPER Impressions 07/13/2024 2:45 PM SHEAR HELPER IMPRESSION: 1. Nonenhancing 1.6 cm pancreatic head cyst most suggestive of a side branch intraductal papillary mucinous neoplasm. No main duct ectasia or a higher suspicion features. Recommend MRI follow-up in 12 months. 2. Colonic diverticulosis without acute diverticulitis. 3. No acute pathology or concerning pulmonary nodules in the chest. DICTATION LOCATION: Location 1 - [facility] 07/13/2024 2:45 PM SHEAR HELPER EXAMINATION: CT ABDOMEN W WO CONT PELVIS CHEST W CONT DATE: 07/13/2024 12:55 PM HISTORY: IPMN IPMN (intraductal papillary mucinous neoplasm) TECHNIQUE: Computed tomography of the abdomen was performed without and with intravenous contrast (IOPAMIDOL 61 % INTRAVENOUS SOLUTION (MULTI-DOSE BULK PACK) Given:120 mL) according to a pancreatic mass protocol. Subsequently, CT of the chest, abdomen, and pelvis was performed following the uneventful administration of intravenous contrast according to standard protocol. The examination was performed with the adjustment of mA according to the patient size and/or the use of Iterative Reconstruction Technique. CT Dose Length Product (DLP): 1292.55 mGy*cm FINDINGS: No prior study is available for comparison at the time of this dictation. Chest: LINES/TUBES: None. HEART AND MEDIASTINUM: The heart is normal in size without pericardial effusion. Heavy multivessel coronary calcifications are present. The ascending aorta and main pulmonary artery are nondilated. No enlarged mediastinal or hilar lymph nodes are seen. LUNGS AND AIRWAYS: The central airways are patent. Lungs are hypoinflated with moderate dependent atelectasis bilaterally. No focal pneumonia or significant pulmonary edema. Scattered benign calcified granulomas are noted. No suspicious pulmonary nodules are seen. PLEURA: No pleural effusion or pneumothorax is seen. LOWER NECK AND SOFT TISSUES: The imaged thyroid gland appears normal. No axillary or subpectoral lymphadenopathy is identified. Abdomen and pelvis: LIVER: Within normal limits. BILE DUCTS: Nondilated. GALLBLADDER: Within normal limits. SPLEEN: Within normal limits. PANCREAS: Normal in bulk and morphology. There is a 1.6 cm hypoattenuating cystic lesion in the pancreatic head which does not enhance and likely represents a side branch intraductal papillary mucinous neoplasm. No main duct ectasia identified. No acute pancreatic inflammation. ADRENALS: Within normal limits. KIDNEYS/URETERS: Small simple parapelvic and cortical renal cysts bilaterally. BOWEL: Colonic diverticulosis without acute diverticulitis. No bowel wall thickening or obstruction. Normal appendix. PERITONEUM/RETROPERITONEUM: No ascites, free air or enlarged mesenteric/retroperitoneal lymph nodes. PELVIC ORGANS: Prostatomegaly with median lobe hypertrophy and dystrophic calcifications. Urinary bladder is unremarkable. No pelvic lymphadenopathy or free pelvic fluid. VESSELS: Abdominal aorta is moderately atherosclerotic but normal in caliber. ABDOMINAL WALL: Postoperative changes of bilateral inguinal hernia mesh repair. No hernia recurrence. BONES: Transitional lumbosacral anatomy with multilevel lower lumbar spondylosis and grade 1 anterolisthesis of L5 on S1. No acute osseous abnormality. No suspicious lytic or blastic lesions. INCIDENTAL FINDINGS: None. Procedure Note Tawanda Dupont, DO - 07/13/2024 EXAMINATION: CT ABDOMEN W WO CONT PELVIS CHEST W CONT DATE: 07/13/2024 12:55 PM HISTORY: IPMN IPMN (intraductal papillary mucinous neoplasm) TECHNIQUE: Computed tomography of the abdomen was performed without and with intravenous contrast (IOPAMIDOL 61 % INTRAVENOUS SOLUTION (MULTI-DOSE BULK PACK) Given:120 mL) according to a pancreatic mass protocol. Subsequently, CT of the chest, abdomen, and pelvis was performed following the uneventful administration of intravenous contrast according to standard protocol. The examination was performed with the adjustment of mA according to the patient size and/or the use of Iterative Reconstruction Technique. CT Dose Length Product (DLP): 1292.55 mGy*cm FINDINGS: No prior study is available for comparison at the time of this dictation. Chest: LINES/TUBES: None. HEART AND MEDIASTINUM: The heart is normal in size without pericardial effusion. Heavy multivessel coronary calcifications are present. The ascending aorta and main pulmonary artery are nondilated. No enlarged mediastinal or hilar lymph nodes are seen. LUNGS AND AIRWAYS: The central airways are patent. Lungs are hypoinflated with moderate dependent atelectasis bilaterally. No focal pneumonia or significant pulmonary edema. Scattered benign calcified granulomas are noted. No suspicious pulmonary nodules are seen. PLEURA: No pleural effusion or pneumothorax is seen. LOWER NECK AND SOFT TISSUES: The imaged thyroid gland appears normal. No axillary or subpectoral lymphadenopathy is identified. Abdomen and pelvis: LIVER: Within normal limits. BILE DUCTS: Nondilated. GALLBLADDER: Within normal limits. SPLEEN: Within normal limits. PANCREAS: Normal in bulk and morphology. There is a 1.6 cm hypoattenuating cystic lesion in the pancreatic head which does not enhance and likely represents a side branch intraductal papillary mucinous neoplasm. No main duct ectasia identified. No acute pancreatic inflammation. ADRENALS: Within normal limits. KIDNEYS/URETERS: Small simple parapelvic and cortical renal cysts bilaterally. BOWEL: Colonic diverticulosis without acute diverticulitis. No bowel wall thickening or obstruction. Normal appendix. PERITONEUM/RETROPERITONEUM: No ascites, free air or enlarged mesenteric/retroperitoneal lymph nodes. PELVIC ORGANS: Prostatomegaly with median lobe hypertrophy and dystrophic calcifications. Urinary bladder is unremarkable. No pelvic lymphadenopathy or free pelvic fluid. VESSELS: Abdominal aorta is moderately atherosclerotic but normal in caliber. ABDOMINAL WALL: Postoperative changes of bilateral inguinal hernia mesh repair. No hernia recurrence. BONES: Transitional lumbosacral anatomy with multilevel lower lumbar spondylosis and grade 1 anterolisthesis of L5 on S1. No acute osseous abnormality. No suspicious lytic or blastic lesions. INCIDENTAL FINDINGS: None. IMPRESSION: 1. Nonenhancing 1.6 cm pancreatic head cyst most suggestive of a side branch intraductal papillary mucinous neoplasm. No main duct ectasia or a higher suspicion features. Recommend MRI follow-up in 12 months. 2. Colonic diverticulosis without acute diverticulitis. 3. No acute pathology or concerning pulmonary nodules in the chest. DICTATION LOCATION: Location 1 [facility] Mary Khanna MD CT ORDERABLES Final Result * POC CREATININE (07/13/2024 12:41 PM SHEAR HELPER) CREATININE POC 1.00 0.70 - 1.20 mg/dL 07/13/2024 12:41 PM SHEAR HELPER [facility] MULTI SITE/OPS [facility] Comment:The GFR result is no t clinically significant on patients <18 or >70 years of age. GFR POC >60 mL/min/1.7 3 sq meter 07/13/2024 12:41 PM SHEAR HELPER [facility] MULTI SITE/OPS [facility] Comment:eGFR calculated with 2020 CKD-EPI equation. Vegetarian diet, extremely high or low muscle mass, and may affect results. Cystatin C with Glomerular Filtration Rate is a suitable alternative for these patients. Blood, whole 07/13/2024 12:4 1 PM SHEAR HELPER 07/13/2024 12:45 PM SHEAR HELPER us Mary Khanna MD POINT OF CARE TESTING Final Result [facility]OPS [facility] CLIA # [id number] [place] [address] * CHG CA 19 9 (06/29/2024 1:03 PM SHEAR HELPER) us Tad Duckworth MD CHG - LABORATORY Final Result * COMPREHENSIVE METABOLIC PANEL (06/29/2024 12:45 PM SHEAR HELPER) Blood us Tad Duckworth MD CHEMISTRY ORDERABLES Final Resu lt * CBC WITH AUTODIFFERENTIAL (06/29/2024 12:02 PM SHEAR HELPER) Blood us Tad Duckworth MD HEMATOLOGY ORDERABLES Final Res ult from Last 3 Months Insurance MEDICARE RAILROAD [facility] MEDICARE RAILROAD [facility] MEDICARE RAILROAD
--- OUTSIDE RECORDS SUMMARY | 2024-07-27 15:22 | XMS_ITS | Referral Summary ---
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, unspecified vessel or lesion type (HCC) (Primary Dx); Dyslipidemia 05/25/2024 Telephone [facility] [address] [place] [address] Shaun Jones MD 05/25/2024 Orders Only [facility] Non-Oncology Infusion [address] [place] [address] Shaun Jones MD 05/25/2024 Orders Only [facility] Non-Oncology Infusion [address] [place] [address] Shaun Jones MD Dyslipidemia (Primary Dx); 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 (HCC) TAKE [...] (02/14/2022): Added automatically from request for surgery [id number] PLMD (periodic limb movement disorder) 1 Spell of altered cognition 01/23/2021 Coronary artery disease invo lving torres martinez heart with angina pectoris (CMS/HCC) 12/13/2019 Overview (12/13/2019): Added automatically from request for surgery [id number] Social History Tobacco Use Types Packs/Day Years [...] Orientation Straight 12/30/2019 7: 36 PM CDT Last Filed Vital Signs Vital Sign Reading Time Taken Comments Blood Pressure 167/94 05/26/2024 10:15 AM EXPLOSION WELDER Pulse 85 05/26/2024 10:10 AM EXPLOSION WELDER Temperature 36.8 C (98.2 F) 05/26/2024 10:10 AM EXPLOSION WELDER Respiratory Rate 18 05/26/2024 10:1 0 AM EXPLOSION WELDER Oxygen Saturation 100% 05/26/2024 10: 10 AM EXPLOSION WELDER Inhaled Oxygen Concentration - - Weight 84.3 kg (185 lb 14.4 oz) 05/25/2024 8:16 AM EXPLOSION WELDER Height 177.8 cm (5' 10 ) 05/25/2024 8:16 AM EXPLOSION WELDER Body Mass Index 26.67 05/25/2024 8:16 AM EXPLOSION WELDER Plan of Treatment Not on file Medical Devices Implanted Type Area Tuber Operator Device Identifier Shelf Expiration Date Model / Serial / Lot Other - See Comments Other - see comments Left: Knee Description:Prosthetic knee, 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 [employer] [id number] Device Ventricular Assist 17.4x13.8in Impella Cp 9.3in 10-40 - [id number] Implanted:Qty: 1 on 12/15/2019 by Shaun Jones MD at [facility] [employer] [id number] / / [employer] X [id number] Resolute Jesus 4.5mm 2.1-2.7fr 15mm 140cm Rapid Exchange - [id number] Implanted:Qty: 1 on 12/15/2019 by Shaun Jones MD at [facility] [employer] [id number] 06/04/2021 [id number] / / [id number] [place] Zase Ida [id number] Synergy 3mm 16mm 144cm Radiopaque 1 Access Port Inflation Lumen - [id number] Implanted:Qty: 1 on 12/15/2019 by Shaun Jones MD at [facility] DN2K Ida [id number] / / Daig Ida [id number] Device Closure Angio-Seal Vip Bondek-Plus Polyglyd L70 Cm Od6 Fr Odsec.035 In Vascular - [id number] Implanted:Qty: 1 on 12/15/2019 by Shaun Jones MD at [facility] Daig Ida/[employer] [id number] / / Insurance [facility] MEDICARE RAILROAD [facility] SUPP[facility] Care Teams Scanning Coordinator Relationship Specialty Start Date End Date Cody Contreras DO [address] [place] [address] PCP - General Family Medicine 05/02/20
[2024-07-27 16:59] LABS: Alanine Aminotransferase 27 U/L (6-50); Albumin Level 4.3 g/dL (3.5-5.1); Alkaline Phosphatase 80 U/L (38-126); Anion Gap 8 mmol/L (4-12); Aspartate Amino Transferase 55 U/L (17-59); Bilirubin,Total 0.5 mg/dL (0.2-1.3); Blood Urea Nitrogen 19 mg/dL (9-20); Calcium 9.3 mg/dL (8.4-10.2); Carbon Dioxide 27 mmol/L (22-30); Chloride 105 mmol/L (98-107); Estimated Glomerular Filt Rate > 60; Glucose 84 mg/dL (65-110); Potassium 4.1 mmol/L (3.4-5.0); Sodium 140 mmol/L (137-145)
[2024-07-29 11:58] LABS: CA 19-9 29 U/mL (<34)
== END 2024-07-27 14:38 | disposition home or self-care (01) ==
LOC: ANHLAB 14:38
PROVIDERS: PCP Family Medicine; Visit Provider Internal Medicine Hematology & Oncology
DX: C25.9 Malignant neoplasm of pancreas, unspecified (principal)
CPT/HCPCS: 36415; 80047; 80053; 85025; 86301

== ENCOUNTER 2024-12-07 15:51 | Outpatient (CLI) | payer MEDICARE, SELFPAY ==
--- NOTE | ~2024-12-07 | XR_ITS ---
HISTORY: M17.11 - Unilateral primary osteoarthritis, right knee COMPARISON: None TECHNIQUE: 4 views of the right knee were performed FINDINGS: No acute or subacute fracture. Medial tibiofemoral joint space narrowing is identified, with near complete obliteration of the media l tibiofemoral joint space. Osteophytic bridging is identified within the proximal tibia. Narrowing of the patellofemoral joint space is also noted. Moderate suprapatellar joint effusion is identified. The infrapatellar joint space is clear. IMPRESSION: Severe degenerative disease, as detailed above. No acute fracture. Reviewed, dictated and finalized at location A.
--- NOTE | 2024-12-07 15:56 | ECG_ITS ---
Test Date: 2024-12-07 16:17:04 Measurements Intervals [place] Rate: 62 P: 58 [place]: 204 QRS: -46 QRSD: 128 T: 24 QT: 426 QTc: 436 Interpretive Statements SINUS RHYTHM RIGHT BUNDLE BRANCH BLOCK LEFT ANTERIOR FASCICULAR BLOCK ABNORMAL ECG No previous ECG available for comparison Electronically Signed On 12-07-2024 16:25:26 CDT by Tex Vila D.O.
--- OUTSIDE RECORDS SUMMARY | 2024-12-07 17:30 | XMS_ITS ---
Author Organization [facility] Address [address] [place] [address] Care Team Providers Care Folder Gluer Operator Name Role Phone Cody Contreras DO Primary Care Provider [phone] Active Problems Problem Noted Date Diagnosed Date [...]
--- OUTSIDE RECORDS SUMMARY | 2024-12-07 17:30 | XMS_ITS | Referral Summary ---
Author Organization [facility] [place] [address] Address [address] [place] [address] Care Team Providers Care Senior Mobile Solutions Architect Name Role Phone Cody Contreras DO Primary Care Provider Encounters Date Type Department Care Team Description 10/26/2024 5:00 PM CDT - 10/26/2024 11:59 PM CDT Hospital Encounter [facility] [address] [place] [address] [id number] Discharge Disposition: Discharge to home or self care 10/24/2024 Telephone [facility] Cardiology [address] [facility] Advanced Medicine 8th [place] [address] [place] [address] Cari Hernández from Last 3 Months Allergies Active Allergy [...] 24 hr tabletIndication s:Coronary artery disease of lone pine artery of lone pine heart with stable angina pectoris TAKE ONE TABLET BY MOUTH DAILY 30 tablet 11 06/08/2023 Active ranolazine ER (RANEXA) 500 mg 12 hr tablet Take 1 tablet (500 mg total) by mouth 2 (two) times a day 60 tablet 11/09/2023 Active ezetimibe (ZETIA) 10 mg tablet Take 1 tablet (10 mg total) by mouth daily 30 tablet 11 11/09/2023 Active clopidogreL (PLAVIX) 75 mg tablet TAKE ONE TABLET BY MOUTH EVERY MORNING 30 tablet 5 01/18/2024 Active metoprolol XL (TOPROL-XL) 25 mg extended release tablet TAKE ONE TABLET BY MOUTH DAILY 30 tablet 11 02/26/2024 Active amLODIPine (NORVASC) 5 mg tablet TAKE ONE TABLET BY MOUTH DAILY 90 tablet 2 08/08/2024 Active Active Problems Problem Noted Date Diagnosed Date Dyslipidemia 05/25/2024 Abnormal stress test 02/14/2022 Overview (02/14/2022): Added automatically from request for surgery [id number] PLMD (periodic limb movement disorder) Spell of altered cognition 01/23/2021 Coronary artery disease invo lving lone pine heart with angina pectoris 12/13/2019 Overview (12/13/2019): Added automatically from request for surgery [id number] Social History Tobacco Use Types Packs/Day Years [...] making you feel afraid or unsafe? Denies 08/31/2024 Sex and Gender Information Value Date Recorded Sex Assigned at Not on file Legal Sex Male 8:53 AM CDT Gender Identity Male 12/30/2019 7:36 PM CDT Sexual Orientation Straight 12/30/2019 7: 36 PM CDT Last Filed Vital Signs Vital Sign Reading Time Taken Comments Blood Pressure 135/77 08/31/2024 10:01 AM CDT Pulse 65 08/31/2024 10:01 AM CDT Temperature 36.8 C (98.2 F) 08/31/2024 10:01 AM CDT Respiratory Rate 18 08/31/2024 10:01 AM CDT Oxygen Saturation 100% 08/31/2024 10:01 AM CDT Inhaled Oxygen Concentration - - Weight 83.1 kg (183 lb 1.6 oz) 08/31/2024 10:01 AM CDT Height 177.8 cm (5' 10) 08/31/2024 10:01 AM CDT Body Mass Index 26.27 08/31/2024 10:01 AM CDT Plan of Treatment Not on file Medical Devices Implanted Type Area Elastic Attacher Zigzag Device Identifier Shelf Expiration Date Model / Serial / Lot Other - See Comments Other - see comments Left: Knee Description:Prosthetic knee, 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 Abi[employer] Inc [id number] Device Ventricular Assist 17.4x13.8in Impella Cp 9.3in - [id number] Implanted:Qty: 1 on 12/15/2019 by Shaun Jones MD at [facility] [employer] 0048-000 3 / / Medtronic Usa Inc X [id number] Resolute [place] 4.5mm 2.1-2.7fr 15mm 140cm Rapid Exchange - [id number] Implanted:Qty: 1 on 12/15/2019 by Shaun Jones MD at [facility] Med[employer]onic Inc [id number] 06/04/2021 [id number] [id number] / / [id number] [place] [employer] Ida [id number] Synergy 3mm 16mm 144cm Radiopaque 1 Access Port Inflation Lumen - [id number] Implanted:Qty: 1 on 12/15/2019 by Shaun Jones MD at [facility] [employer] Ida [id number] / / Daig Ida [id number] Device Closure Angio-Seal Vip Bondek-Plus Polyglyd L70 Cm Od6 Fr Odsec.035 In Vascular - [id number] Implanted:Qty: 1 on 12/15/2019 by Shaun Jones MD at [facility] [id number] / / Procedures Procedure Name Priority Date/Time Associated Diagnosis Comments IR OUTSIDE REFERENCE Routine 10/26/2024 5:00 PM CDT from Last 3 Months Results * IR Outside Reference (10/26/2024 5:00 PM CDT) Impressions [facility]_P[facility] - 10/26/2024 5:00 PM CDT These images are for Reference purposes only and have not been reviewed by [facility] Radiology. There will be no report generated by a [facility] Radiologist. Narrative RAD_PACS[facility] - 10/26/2024 5:00 PM CDT EXAMINATION: Images For Reference Purposes Only us Danny Deras MD IMG IR PROCEDURES Final R esult [facility]_P[facility] from Last 3 Months Insurance [facility] MEDICARE RAILROAD MEDICARE RAILROAD [facility] MEDICARE SUPPLEMENT Care Teams Senior Mobile Solutions Architect Relationship Specialty Start Date End Date Cody Contreras DO [address] [place] [address] PCP - General Family Medicine 05/02/20
--- OUTSIDE RECORDS SUMMARY | 2024-12-07 17:30 | XMS_ITS | Clinical Summary ---
Author Organization [facility] Address [address] [place] [address] Care Team Providers Care Varnish Blender Name Role Phone Cody Contreras DO Primary Care Provider [phone] Allergies Active Allergy Reactions Criticality Noted Date [...] Encounters Date Type Department Care Team Description 11/09/2024 External Device Data [facility] ABSTRACTION Provider, Abstract 11/08/2024 External Device Data [facility] ABSTRACTION Provider, Abstract from Last 3 Months Family History Medical [...] Sex Assigned at Male 07/01/2024 8:25 AM HAT FINISHING MATERIALS PREPARER Legal Sex Male 9:04 AM HAT FINISHING MATERIALS PREPARER Gender Identity Not on file Sexual Orientation Asexual 07/01/2024 8: 25 AM HAT FINISHING MATERIALS PREPARER Last Filed Vital Signs Vital Sign Reading Time Taken Comments Blood Pressure 144/88 07/27/2024 2:54 PM HAT FINISHING MATERIALS PREPARER Pulse 70 07/27/2024 2:54 PM HAT FINISHING MATERIALS PREPARER Temperature 36.6 C (97.9 F) 07/27/2024 2:54 PM HAT FINISHING MATERIALS PREPARER Respiratory Rate 16 07/27/2024 2:54 PM HAT FINISHING MATERIALS PREPARER Oxygen Saturation 90% 07/27/2024 2:54 PM HAT FINISHING MATERIALS PREPARER Inhaled Oxygen Concentration - - Weight 83.6 kg (184 lb 3.2 oz) 07/27/2024 2:54 P M HAT FINISHING MATERIALS PREPARER Height 177.8 cm (5' 10) 07/21/2024 12:47 PM HAT FINISHING MATERIALS PREPARER Body Mass Index 26.43 07/21/2024 12:47 PM HAT FINISHING MATERIALS PREPARER Plan of Treatment Upcoming Encounters Date Type Department Care Team (Late st Contact Info) Description 01/25/2025 11:30 AM CDT Office Visit [facility] Oncology and Hematology - Norm [address] [facility] [address] [place] [address] Tad Duckworth MD [address] [facility] [address] [place] [address] 03/22/2025 11:30 AM CDT Appointment [address] [place] [address] Mary Khanna MD [address] [facility] [address] [place] [address] 04/17/2025 1:00 PM CDT Office Visit [facility] Surgical Oncology [place] [address] [facility] [address] [place] [address] Mary Khanna MD [address] [facility] [address] [place] [address] Health Maintenance Due Date Last Done Comments DTAP/TDAP/TD VACCINES (1 - Tdap) 1965 PNEUMOCOCCAL VACCINE 50+ YEARS (1 of 2 - PCV) 09/29/18 66 ZOSTER VACCINE (1 of 2) 1996 RSV VACCINE (60+ or ) (1 - 1-dose 75+ series) 2021 INFLUENZA VACCINE (#1) 2024 Insurance MEDICARE RAILROAD Member Subscriber Plan / Payer ( fective 1989-Present) Name:Wilian Rodgers Relation to Subscriber:Self Name:Wilian Rodgers Payer ID:Not on file Group ID:Not on file Type:Medicare Address: [address] MEDICARE RAILROAD [facility] [place] [address] Care Teams Varnish Blender Relationship Specialty Start Date End Date Cody Contreras DO [address] [address] PCP - General Family Practice 07/28/24
--- OUTSIDE RECORDS SUMMARY | 2024-12-07 17:30 | XMS_ITS | Clinical Summary ---
Author Organization [facility] [place] [address] Address [address] [place] [address] Care Team Providers Care Wire Splicer Name Role Phone LucreciazakiCodyrish Primary Care Provider Allergies Active Allergy Reactions [...] 24 hr tabletIndication s:Coronary artery disease of tetlin artery of tetlin heart with stable angina pectoris TAKE ONE [...] (02/14/2022): Added automatically from request for surgery [id number] PLMD (periodic limb movement disorder) 1 Spell of altered cognition 01/23/2021 Coronary artery disease invo lving tetlin heart with angina pectoris 12/13/2019 Overview (12/13/2019): Added automatically from request for surgery [id number] Encounters Date Type Department Care Team Description 10/26/2024 5:00 PM CDT - 10/26/2024 11:59 PM CDT Hospital Encounter [facility] Rad[facility] [address] [place] [address] Discharge Disposition: Discharge to home or self care 10/24/2024 Telephone [facility] Cardiology [address] [facility] Advanced Medicine 8th [place] [address] [place] [address] Cari Hernández from Last 3 Months Surgical History Surgery Date Site/Laterality Comments HERNIA REPAIR CATARACT EXTRACTION JOINT REPLACEMENT Left knee replacement CORONARY ANGIOPLASTY WITH STENT PLACEMENT VASECTOMY Medical History Medical History Date Comments AAA (abdominal aortic aneurysm) GERD (gastroesophageal reflux disease) 09/2019 SOB (shortness of breath) on exertion Motion sickness CAD (coronary artery disease) HL (hearing loss) Cataract Full dentures upper and lowers Arthritis Heart disease Blindness Mixed conductive and sensorineural hearing loss Family History Medical History Relation Name Comments Cancer Father t r pfalzgraf Cancer Mother m c pfalzgraf Vision loss Mother m c pfalzheidyaf Relation Name Status Comments Father t r [...] 08/31/2024 10:01 AM CDT Plan of Treatment Health Maintenance Due Date Last Done Comments Depression Screening 1945 Hepatitis C Screening 1945 DTaP/Tdap/Td Vaccine (1 - Tdap) 1957 Hepatitis B Screening 1964 Pneumococcal vaccine 65+ (1 of 2 - PCV) 1965 Zoster Vaccine (1 of 2) 1996 Well Visit 65+ 09/30/2011 Influenza Vaccine (Season Ended) 2025 07/12/19 20 Fall Risk Assessment 08/31/2025 08/31/2024, 04/17/2021, 01/04/2020 Abdominal Aortic Aneurysm (A AA) Screen Completed 10/24/2022, 10/22/2022, 01/13/2022, Additional history exists Medical Devices Implanted Type Area Portal Developer Device Identifier Shelf Expiration Date Model / Serial / Lot Other - See Comments Other - see comments Left: Knee Description:Prosthetic knee, 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 Abiomed Inc [id number] Device Ventricular Assist 17.4x13.8in Impella Cp 9.3in 10-40 - [id number] Implanted:Qty: 1 on 12/15/2019 by Shaun Jones MD at [facility] [employer] 0048-000 3 / / Medtronic Usa Inc X [id number] Resolute [place] 4.5mm 2.1-2.7fr 15mm 140cm Rapid Exchange - [id number] Implanted:Qty: 1 on 12/15/2019 by Shaun Jones MD at [facility] Medtronic Inc [id number] 06/04/2021 [id number] 15UX / / [id number] [place] [employer] Ida [id number] Synergy 3mm 16mm 144cm Radiopaque 1 Access Port Inflation Lumen - [id number] Implanted:Qty: 1 on 12/15/2019 by Shaun Jones MD at [facility] [employer] [id number] / / [id number] [id number] Device Closure Angio-Seal Vip Bondek-Plus Polyglyd L70 Cm Od6 Fr Odsec.035 In Vascular - [id number] Implanted:Qty: 1 on 12/15/2019 by Shaun Jones MD at [facility] [employer] [id number] / / Procedures Procedure Name Priority Date/Time Associated Diagnosis Comments IR OUTSIDE REFERENCE Routine 10/26/2024 5:00 PM CDT from Last 3 Months Results * IR Outside Reference (10/26/2024 5:00 PM CDT) Impressions [facility] - 10/26/2024 5:00 PM CDT These images are for Reference purposes only and have not been reviewed by [facility] Radiology. There will be no report generated by a [facility] Radiologist. Narrative RAD_PACS[facility] - 10/26/2024 5:00 PM CDT EXAMINATION: Images For Reference Purposes Only us Danny Deras MD IMG IR PROCEDURES Final R esult [facility] from Last 3 Months Insurance [facility] MEDICARE RAILROAD [place] [address] [facility] MEDICARE SUPPLEMENT Care Teams Wire Splicer Relationship Specialty Start Date End Date Cody Contreras DO [address] [place] [address] PCP - General Family Medicine 05/02/20
== END 2024-12-07 15:52 | disposition home or self-care (01) ==
LOC: CHSIMG 15:53
PROVIDERS: PCP Nurse Practitioner Family; Visit Provider Nurse Practitioner Family
DX: M17.11 Unilateral primary osteoarthritis, right knee (principal); R06.02 Shortness of breath; I25.10 Atherosclerotic heart disease of native coronary artery without angina pectoris; I45.2 Bifascicular block
CPT/HCPCS: 73564; 93005

== ENCOUNTER 2024-12-13 13:41 | Outpatient (CLI) | payer MEDICARE, SELFPAY ==
--- NOTE | 2024-12-13 13:45 | ECHO_ITS ---
Patient Info Name: Wilian Rodgers Age: 79 years : 1945 Gender: Male Ht: 70 in Wt: 179 lbs BSA: 2.01 m2 HR: 75 bpm BP: 135 / 87 mmHg Technical Quality: Good Exam Date: 12/13/2024 1:49 PM Patient Status: O Admit Date: 12/13/2024 Exam Type: CA echo doppler color flow Complete two-dimensional, color flow and Doppler transthoracic echocardiogram is performed. Social Service Coordinator: Lyndsey Calloway Attending Provider: [place] Mike Summary 1. Complete two-dimensional, color flow and Doppler transthoracic echocardiogram is performed. 2. Left ventricular chamber dimension is normal. 3. Left ventricular systolic function is normal, estimated at 60-65. 4. The left ventricular diastolic function is grade I diastolic dysfunction. 5. E/e' 7 is not elevated. 6. There is trace mitral valve regurgitation. 7. No pulmonary hypertension, estimated pulmonary arterial systolic pressure is 26 mmHg. Left Ventricle E/e' 7 is not elevated. Left ventricular chamber dimension is normal. Left ventricular systolic function is normal, estimated at 60-65. The left ventricular diastolic function is grade I diastolic dysfunction. Right Ventricle Right ventricular chamber dimension is normal. Right ventricular systolic function is normal and with normal TAPSE 1.9 cm. Left Atria Left atrial chamber dimension is normal. Right Atria Right atrial chamber dimension is normal. Aortic Valve The aortic valve is trileaflet. There is no aortic valve stenosis. There is no aortic valve regurgitation. Pulmonic Valve There is no pulmonic regurgitation. Mitral Valve There is no mitral valve stenosis. There is trace mitral valve regurgitation. Tricuspid Valve There is no tricuspid valve regurgitation. No pulmonary hypertension, estimated pulmonary arterial systolic pressure is 26 mmHg. Pericardium/Pleural There is no pericardial effusion. Inferior Vena Cava Normal inferior vena cava with >50% collapse upon inspiration consistent with normal right atrial pressure, 5 mmHg. Aorta The aortic root size at the sinus of Valsalva is normal. Left Ventricular Outflow Tract Name Value Normal LVOT 2D LVOT Diameter 2.1 cm LVOT Doppler LVOT Peak Velocity 104 cm/s LVOT Peak Gradient 4 mmHg LVOT Mean Gradient 3 mmHg LVOT VTI 20 cm LVOT VTI/AV VTI Ratio 0.9 LVOT Stroke Volume 71 ml LVOT CO 4.4 l/min LVOT CI 2.2 l/min/m2 Pulmonic Valve Name Value Normal PV Doppler PV Peak Velocity 93 cm/s PV Peak Gradient 3 mmHg Mitral Valve Name Value Normal MV Diastolic Function MV E Peak Velocity 69 cm/s MV A Peak Velocity 107 cm/s MV E/A 0.6 MV Decel Time (PW) 243 ms MV Annular TDI MV E/e' (Septal) 9.8 MV E/e' (Lateral) 6.5 MV E/e' (Average) 8.1 Tricuspid Valve Name Value Normal TV Regurgitation Doppler TR Peak Velocity 229 cm/s TR Peak Gradient 21 mmHg Estimated PAP/RSVP RA Pressure 5 mmHg <=5 PA Systolic Pressure 26 mmHg <36 RV Systolic Pressure 26 mmHg <36 TV Annular TDI TV Lateral Alice s' Velocity 12.3 cm/s >=9.5 Aortic Valve Name Value Normal AV Doppler AV Peak Velocity 129 cm/s AV Peak Gradient 7 mmHg AV Mean Gradient 3 mmHg AV VTI 23 cm AV Area (Cont Eq VTI) 3.1 cm2 >=3.0 AV Area (Cont Eq Jose) 2.8 cm2 AV DI (Jose) 0.81 AV Regurgitation 2D LVOT Area 3.5 cm2 Ventricles Name Value Normal LV Dimensions 2D/MM IVS Diastolic Thickness (2D) 1.0 cm 0.6-1.0 LVID Diastole (2D) 4.3 cm 4.2-5.8 LVIW Diastolic Thickness (2D) 0.9 cm 0.6-1.0 LVID Systole (2D) 2.6 cm 2.5-4.0 LVOT Diameter 2.1 cm LV Mass (2D Cubed) 131.46 g 88.00-224.00 LV Mass Index (2D Cubed) 65 g/m2 49-115 Relative Wall Thickness (2D) 0.42 <=0.42 LV Fractional Shortening/Ejection Fraction 2D/MM LV Fractional Shortening (2D) 39 % 25-43 LV EF (2D Teichholz) 69 % LV Diastolic Volume (4C MOD) 87 ml LV EF (4C MOD) 70 % LV Diastolic Volume (2C MOD) 83 ml LV EF (2C MOD) 64 % LV Diastolic Volume (BP MOD) 86 ml 62-150 LV Diastolic Volume Index (BP MOD) 43 ml/m2 34-74 LV Systolic Volume (BP MOD) 28 ml 21-61 LV Systolic Volume Index (BP MOD) 14 ml/m2 11-31 LV EF (BP MOD) 67 % 52-72 LV Diastolic Length (4C) 8.3 cm LV Systolic Length (4C) 6.5 cm LV Stroke Volume (4C MOD) 61 ml Atria Name Value Normal LA Dimensions LA Volume (4C A-L) 26 ml LA Volume (BP A-L) 31 ml RA Dimensions RA Systolic Major [place] Length (4C) 4.5 cm 2.1-2.7 RA Area (4C) 10.6 cm2 <=18.0 Report Signatures
== END 2024-12-13 13:42 | disposition home or self-care (01) ==
LOC: CHSIMG 13:42
PROVIDERS: PCP Nurse Practitioner Family; Visit Provider Nurse Practitioner Family
DX: I25.10 Atherosclerotic heart disease of native coronary artery without angina pectoris (principal); R06.02 Shortness of breath
CPT/HCPCS: 93306

== ENCOUNTER 2025-04-05 07:57 | Outpatient (CLI) | payer MEDICARE, SELFPAY ==
--- OUTSIDE RECORDS SUMMARY | 2025-04-05 08:09 | XMS_ITS | Encounter Summary ---
Author Organization [facility] Address [address] [place] [address] Phone Care Team Providers Care Research Management Associate Name Role Phone Cody Contreras DO Primary Care Provider Encounter Details Date Type Department Care Team (Late st Contact Info) Description 03/17/2025 Results Follow-Up [facility] Medicine Cardiology [address] [facility] Advanced Medicine 8th [place] [address] [place] [address] Danny Deras MD [address] [facility] [address] [place] [address] Pulmonary Function Test - Social History Tobacco Use Types Packs/Day Years Used Date Smoking Tobacco: Former Cigarettes Q uit: 1956 Smokeless Tobacco: Former Chew Quit: 03/31/1987 Comments:Quit 35 yrs ago Alcohol Use Standard [...] making you feel afraid or unsafe? Denies 03/08/2025 Sex and Gender Information Value Date Recorded Sex Assigned at Not on file Legal Sex Male 8:53 AM CDT Gender Identity Male 12/30/2019 7:36 PM CDT Sexual Orientation Straight 12/30/2019 7: 36 PM CDT documented as of this encounter Miscellaneous Notes * Result Encounter Note - Jenna Turk RN - 03/17/2025 3:49 PM CDT [employer] message sent with results. Pt aware to call with questions/concerns documented in this encounter Plan of Treatment Not on file documented as of this encounter Visit Diagnoses Not on filedocumented in this encounter Care Teams Research Management Associate Relationship Specialty Start Date End Date Cody Contreras DO [address] [place] [address] PCP - General Family Medicine 05/02/20 documented as of this encounter
--- OUTSIDE RECORDS SUMMARY | 2025-04-05 08:09 | XMS_ITS | Clinical Summary ---
Author Organization [facility] [place] [address] Address [address] [place] [address] Care Team Providers Care Tar Chaser Name Role Phone Jessica Contrerasradha WolfeGaribay Primary Care Provider Allergies Active Allergy Reactions Criticality Noted Date Comments Penicillins Nausea And Vomiting, Nausea only,Headache,Nausea & Vomiting High 11/08/2018 Rosuvastatin Dizziness,Fatigue,Ot her (See comments),Shortness of breath,Muscle pain High 05/25/2024 Medications lutein 40 mg capsule Take 40 mg by mouth daily Active mv-min/folic/K1 /lycopen/lutein (CENTRUM SILVER ULTRA MEN'S ORAL) Take 1 tablet/capsu le by mouth daily Active aspirin 81 mg enteric coated tablet Take 1 tablet (81 mg total) by mouth daily Active garlic (GARLIQUE ORAL) Take by mouth Active acetaminophen 500 mg capsule Take 1 capsule (500 mg total) by mouth every 6 (six) hours as needed for mild pain (pain scale 1-4) Active clopidogreL (PLAVIX) 75 mg tablet Take 1 tablet (75 mg total) by mouth every morning 30 tablet 5 12/20/2024 Active Active Problems Problem Noted Date Diagnosed Date Ischemic heart disease 12/20/2024 Hypercholesterolemia 12/20/2024 S/P drug eluting coronary stent placement 2024 Chronic fatigue 12/20/2024 Shortness of breath 12/20/2024 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) 12/20/2024 Pain in both lower extremities 12/20/2024 Abdominal aortic aneurysm (AAA) 30 to 34 mm in d iameter 12/20/2024 Numbness and tingling of both upper extremities 12/20/2024 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 Chest pain, atypical 12/20/2024 Statin intolerance 12/20/2024 Dyslipidemia 05/25/2024 Abnormal stress test 02/14/2022 Overview (02/14/2022): Added automatically from request for surgery [id number] PLMD (periodic limb movement disorder) Spell of altered cognition 01/23/2021 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 12/13/2019 Overview (12/13/2019): Added automatically from request for surgery [id number] Encounters Date Type Department Care Team Description 03/17/2025 Results [place] [facility] [address] [place] [address] 8th [place] [address] [place] [address] Danny Deras MD Pulmonary Function Test - 03/16/2025 2:33 PM CDT - 03/16/2025 11:59 PM CDT Hospital En[facility] [address] [place] [address] [address] [place] [address] Shortness of breath Discharge Disposition: Discharge to home or self care 03/08/2025 10:00 AM CDT Infusion [facility] Non-Oncology Infusion [address] [place] [address] Gardenia Cota, MARGIE Dyslipidemia (Primary Dx); Coronary artery disease involving cowlitz heart with angina pectoris, unspecified vessel or lesion type 03/02/2025 4:40 PM CDT [facility] Visit [facility] [address] [place] [address] 8th [place] [address] [place] [address] Danny Deras MD Preoperative cardiovascular examination (Primary Dx); Ischemic heart disease; S/P drug eluting coronary stent placement; Hypercholesterolemia; Statin intolerance; Right bundle branch block (RBBB) with left anterior fascicular block (LAFB); Claudication; Shortness of breath 02/10/2025 Telephone [facility] [address] [facility] 8th [place] [address] [place] [address] Danny Deras MD from Last 3 Months Surgical History [...] Name Comments Cancer Father t r pfalzgraf Lung disease Father t r pfalzgraf Cancer Mother m c pfalzgraf Vision loss Mother m c pfalzgraf Relation Name Status Comments Father t [...] Sign Reading Time Taken Comments Blood Pressure 146/78 03/08/2025 9:45 AM CDT Pulse 74 03/08/2025 9:45 AM CDT Temperature 36.9 C (98.4 F) 03/08/2025 9:45 AM CDT Respiratory Rate 18 03/08/2025 9:45 AM CDT Oxygen Saturation 99% 03/08/2025 9:45 AM CDT Inhaled Oxygen Concentration - - Weight 81.1 kg (178 lb 12.8 oz) 03/02/2025 4:34 PM CDT Height 177.8 cm (5' 10) 03/02/2025 4:34 PM CDT Body Mass Index 25.66 03/02/2025 4:34 PM CDT Plan of Treatment Health Maintenance Due Date Last Done Comments Depression Screening 1945 Hepatitis C Screening 1945 Hepatitis B Screening 1964 Zoster Vaccine (1 of 2) 1996 Well Visit 65+ 09/30/2011 Pneumococcal vaccine 65+ (2 of 2 - PPSV23, PCV20, or PCV21) 11/22/2018 09/27/2018 Influenza Vaccine (#1) 2025 07/12/2019 Fall Risk Assessment 03/08/2026 03/08/2025, 08/31/2024, 04/17/2021, Additional history exists DTaP/Tdap/Td Vaccine (2 - Td or Tdap) 09/27/2028 09/27/2018 Abdominal Aortic Aneurysm (A AA) Screen Completed 12/20/2024, 12/20/2024, 10/24/2022, Additional history exists Medical Devices Implanted Type Area Garde Manager Device Identifier Shelf Expiration Date Model / Serial / Lot Other - See Comments Other - see comments Left: Knee Description:Prosthetic knee, 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 AbiViewpoint [id number] Device Ventricular Assist 17.4x13.8in Impella Cp 9.3in - [id number] Implanted:Qty: 1 on 12/15/2019 by Shaun Jones MD at [facility] [employer] [id number] / / Medtronic [employer] X [id number] Resolute [place] 4.5mm 2.1-2.7fr 15mm 140cm Rapid Exchange - [id number] Implanted:Qty: 1 on 12/15/2019 by Shaun Jones MD at [facility] Med[employer]onic Inc [id number] 06/04/2021 [id number] / / [id number] YOGASMOGA Ida [id number] Synergy 3mm 16mm 144cm Radiopaque 1 Access Port Inflation Lumen - [id number] Implanted:Qty: 1 on 12/15/2019 by Shaun Jones MD at [facility] YOGASMOGA [facility] [id number] / / [id number] [id number] Device Closure Angio-Seal Vip Bondek-Plus Polyglyd L70 Cm Od6 Fr Odsec.035 In Vascular - [id number] Implanted:Qty: 1 on 12/15/2019 by Shaun Jones MD at [facility] [employer] [id number] / / Procedures Procedure Name Priority Date/Time Associated Diagnosis Comments PULMONARY FUNCTION TEST (PFT) Routine 03/16/2025 3:22 PM CDT Shortness of breath from Last 3 Months Results * Pulmonary Function Test - (03/16/2025 3:22 PM CDT) FVC PRE 4.38 L [facility] FVC %PRE PRED 116 % [facility] FVC POST 4.09 L [facility] FVC %POST PRED 108 % [facility] FEV1 PRE 3.18 L [facility] FEV1 %PRE PRED 114 % [facility] FEV1 POST 3.17 L [facility] FEV1 %POST PRED 114 % [facility] FEV1/FVC PRE 72.6 % [facility] FEV1/FVC POST 77.5 % [facility] FRC PL PRE 4.66 L [facility] FRC PL %PRE PRED 124 % [facility] RV PRE 2.71 L [facility] RV %PRE PRED 104 % [facility] TLC PRE 6.50 L [facility] TLC %PRE PRED 93 % [facility] DLCO PRE 20.4 ml/min/mmH g [facility] DLCO %PRE PRED 84 % [facility] Anatomical Region Laterality Modality PFT 03/16/2025 2:36 PM CDT Narrative 03/16/2025 3:32 PM CDT PFT performed at:->[facility] Adult PFT Lab- [id number] Procedure:->Complete/Full PFT Standard:->Spirometry, Spirometry w/bronchodilator, DLCO and Lung Volumes Pulmonary Function Test Interpretation SPIROMETRY: Spirometry is normal. There is no significant improvement after inhaling a single dose of albuterol. The inspiratory loop is suggestive of submaximal effort. LUNG VOLUMES: TLC measured by plethysmography is normal. DLCO: The diffusing capacity is normal. Impression: There is no ventilatory defect. There is no impairment of alveolar gas exchange by DLCO. The attending pulmonary physician certifies a physician presence in the [facility] Suite during the administration of aerosolized bronchodilator. The attending pulmonary physician certifies that he/she has reviewed and interpreted the graphic and numerical data of this pulmonary function study and agrees with the written final report. The lower limit of normal for PaO2 and %HbO2 is age dependent. However, the [facility] Pulmonary Function Laboratory defines hypoxemia as a PaO2 <56 mm Hg or a %HbO2 <89%. Starting on June of [address] [facility] Pulmonary Function Laboratory utilizes race neutral GLI Global normative equations. Danny Deras MD PFT ORDERABLES Final Res ult from Last 3 Months Insurance [facility] MEDICARE [employer] MEDICARE SUPPLEMENT [id number] [address] [place] [address] MEDICARE SUPPLEMENT Care Teams Tar Chaser Relationship Specialty Start Date End Date Cody Contreras DO [address] [place] [address] PCP - General Family Medicine 05/02/20
--- OUTSIDE RECORDS SUMMARY | 2025-04-05 08:09 | XMS_ITS ---
Author Organization [facility] Address [address] [facility] [place] [address] Care Team Providers Care Community Development Aide Name Role Phone Cody Contreras DO Primary Care Provider [phone] Active Problems Problem Noted Date Diagnosed Date [...]
--- OUTSIDE RECORDS SUMMARY | 2025-04-05 08:09 | XMS_ITS | Encounter Summary ---
Author Organization [facility] Healthcare Address [address] [place] [address] Care Team Providers Care Driller Portable Name Role Phone LucreciazakiCodyrish Primary Care Provider Encounter Details Date Type Department Care Team (Late st Contact Info) Description 05/16/2024 Orders Only [facility] Health Information Management [address] [place] [id number] Scanning, Provider Social History Tobacco Use Types Packs/Day Years [...] more drinks on one occasion? Never 03/13/2022 Sex and Gender Information Value Date Recorded Sex Assigned at Not on file Legal Sex Male 8:53 AM CDT Gender Identity Male 12/30/2019 7:36 PM CDT Sexual Orientation Straight 12/30/2019 7: 36 PM CDT documented as of this encounter Plan of Treatment Not on file documented as of this encounter Procedures Procedure Name Priority Date/Time Associated Diagnosis Comments SCAN - RADIOLOGY/IMAGING 05/16/2024 documented in this encounter Results * SCAN - RADIOLOGY/IMAGING (05/16/2024) Anatomical Region Laterality Modality Other us Provider Scanning Final Result documented in this encounter Visit Diagnoses Not on filedocumented in this encounter Care Teams Driller Portable Relationship Specialty Start Date End Date Cody Contreras DO [address] [place] [address] PCP - General Family Medicine 05/02/20 documented as of this encounter
--- OUTSIDE RECORDS SUMMARY | 2025-04-05 08:09 | XMS_ITS | Clinical Summary ---
Author Organization [facility]3] [facility] Address [address] [place] [address] Care Team Providers Care Bat Person Name Role Phone Cody Contreras DO Primary Care Provider Allergies Active Allergy Reactions [...] Encounters Date Type Department Care Team Description 03/22/2025 10:53 AM CDT - 03/22/2025 11:59 PM CDT Hospital Encounter [facility] [place] [address] [place] [address] Mary Khanna MD Discharge Disposition: Home or Self Care 02/09/2025 Abstract [facility]3] Oncology and Hematology - Norm [address] [place] [address] Tad Duckworth MD 02/07/2025 External Device Data STL ABSTRACTION Provider, Abstract 02/07/2025 Telephone [facility]3] Oncology and Hematology - Norm [address] [place] [address] Tad Duckworth MD Surgical Clearance 01/04/2025 External Device Data STL ABSTRACTION Provider, Abstract 01/04/2025 External Device Data STL ABSTRACTION Provider, Abstract [...] Sex Assigned at Male 07/01/2024 8:25 AM TWIST TESTER Legal Sex Male 9:04 AM TWIST TESTER Gender Identity Not on file Sexual Orientation Asexual 07/01/2024 8: 25 AM TWIST TESTER Last Filed Vital Signs Vital Sign Reading Time Taken Comments Blood Pressure 144/88 07/27/2024 2:54 PM TWIST TESTER Pulse 70 07/27/2024 2:54 PM TWIST TESTER Temperature 36.6 C (97.9 F) 07/27/2024 2:54 PM TWIST TESTER Respiratory Rate 16 07/27/2024 2:54 PM TWIST TESTER Oxygen Saturation 90% 07/27/2024 2:54 PM TWIST TESTER Inhaled Oxygen Concentration - - Weight 83.6 kg (184 lb 3.2 oz) 07/27/2024 2:54 P M TWIST TESTER Height 177.8 cm (5' 10) 07/21/2024 12:47 PM TWIST TESTER Body Mass Index 26.43 07/21/2024 12:47 PM TWIST TESTER Plan of Treatment Upcoming Encounters Date Type Department Care Team (Late st Contact Info) Description 04/12/2025 2:45 PM CDT Office Visit [facility]3] Oncology and Hematology - [place] [address] [facility] [address] [place] [address] Tad Duckworth MD [address] [facility] [address] [place] [address] 04/17/2025 1:00 PM CDT Office Visit [facility]3] Surgical Oncology [place] [address] [place] [address] Mary Khanna MD [address] [place] [address] Health Maintenance Due Date Last Done Comments DTAP/TDAP/TD VACCINES (1 - Tdap) 1964 PNEUMOCOCCAL VACCINE 50+ YEARS (1 of 2 - PCV) 09/29/18 66 ZOSTER VACCINE (1 of 2) 1996 RSV VACCINE (60+ or ) (1 - 1-dose 75+ series) 2021 INFLUENZA VACCINE (#1) 2025 Procedures Procedure Name Priority Date/Time Associated Diagnosis Comments MRI MRCP W AND WO CONTRAST Routine 03/22/2025 12:11 PM CDT IPMN (intraductal papillary mucinous neoplasm) from Last 3 Months Results * MRI MRCP W AND WO CONTRAST (03/22/2025 12:11 PM CDT) Anatomical Region Laterality Modality Abdomen Magnetic Resonan ce 03/22/2025 12:1 1 PM CDT Impressions 03/22/2025 2:27 PM CDT IMPRESSION: 1. No significant change in the 1.8 cm cystic lesion in the pancreatic head. No suspicious or worrisome features. 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 Recommend follow-up MRI in 12 months to assess stability. 2. Mild diffuse hepatic steatosis. DICTATION LOCATION: Location 1 - [facility] Narrative 03/22/2025 2:27 PM CDT EXAMINATION: ABDOMINAL MRI WITHOUT and with CONTRAST WITH MRCP AND 3D RENDERING DATE: 03/22/2025 12:11 PM HISTORY: Pancreatic cyst, IPMN TECHNIQUE: Multiplanar, multisequence images were obtained through the abdomen before and after the uneventful administration of 16 mL ProHance gadolinium contrast according to MRCP protocol. 3D maximum intensity projections (MIP) of the biliary system were generated on the scanner and sent to PACS for review. COMPARISON: No prior MRI. Comparison is made to CT 07/13/2024 FINDINGS: Liver: Parenchyma: Mild diffuse hepatic steatosis.. No evidence of cirrhosis. Focal lesions: No suspicious hepatic lesion.. Vasculature: There is classic hepatic arterial anatomy. The hepatic veins are normal. The portal veins are normal. Biliary tree: Normal. Gallbladder: Normal. Spleen: Normal. Pancreas: No significant change in the 1.8 cm cystic lesion in the pancreatic head (series 2, image 24). No dilatation of the main pancreatic duct. No suspicious enhancement or diffusion restriction.. Adrenal glands: Normal. Kidneys: Bilateral simple benign parapelvic renal cysts. No suspicious renal lesion. No hydronephrosis.. Additional findings: No ascites or enlarged lymph nodes. Abdominal aorta is normal in caliber. No suspicious osseous lesion. Procedure Note Phillip Blair MD - 03/22/2025 EXAMINATION: ABDOMINAL MRI WITHOUT and with CONTRAST WITH MRCP AND 3D RENDERING DATE: 03/22/2025 12:11 PM HISTORY: Pancreatic cyst, IPMN TECHNIQUE: Multiplanar, multisequence images were obtained through the abdomen before and after the uneventful administration of 16 mL ProHance gadolinium contrast according to MRCP protocol. 3D maximum intensity projections (MIP) of the biliary system were generated on the scanner and sent to PACS for review. COMPARISON: No prior MRI. Comparison is made to CT 07/13/2024 FINDINGS: Liver: Parenchyma: Mild diffuse hepatic steatosis.. No evidence of cirrhosis. Focal lesions: No suspicious hepatic lesion.. Vasculature: There is classic hepatic arterial anatomy. The hepatic veins are normal. The portal veins are normal. Biliary tree: Normal. Gallbladder: Normal. Spleen: Normal. Pancreas: No significant change in the 1.8 cm cystic lesion in the pancreatic head (series 2, image 24). No dilatation of the main pancreatic duct. No suspicious enhancement or diffusion restriction.. Adrenal glands: Normal. Kidneys: Bilateral simple benign parapelvic renal cysts. No suspicious renal lesion. No hydronephrosis.. Additional findings: No ascites or enlarged lymph nodes. Abdominal aorta is normal in caliber. No suspicious osseous lesion. IMPRESSION: 1. No significant change in the 1.8 cm cystic lesion in the pancreatic head. No suspicious or worrisome features. 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 Recommend follow-up MRI in 12 months to assess stability. 2. Mild diffuse hepatic steatosis. DICTATION LOCATION: Location 1 - [facility] Mary Khanna MD MR ORDERABLES Final Result from Last 3 Months Insurance MEDICARE [employer] [facility]IC[facility] MEDICARE RAILROAD Care Teams Bat Person Relationship Specialty Start Date End Date Cody Contreras DO [address] [place] [phone] PCP - General Family Practice 07/28/24
[2025-04-05 08:13] LABS: Hematocrit 43.2 % (37.0-46.0); Hemoglobin 14.7 g/dL (12.4-15.3); Immature Granulocyte Percent A 0.0 % (0.0-0.0); Lymphocytes Absolute Auto 2.20 K/mm3 (1.10-4.50); Mean Corpuscular HGB Conc 34.0 g/dL (32-36); Mean Corpuscular Hemoglobin 32.5 pg (27.0-31.0); Mean Corpuscular Volume 95.6 fL (78.0-102.0); Nucleated Red Blood Cells Absolute Auto 0.00 K/mm3 (0.00-0.00); Nucleated Red Blood Cells Perc 0.0 % (0-0.0); Platelet Count Result 265 K/mm3 (150-420); Red Blood Count 4.52 M/mm3 (4.70-6.10); White Blood Count 5.3 K/mm3 (4.8-10.8)
[2025-04-05 08:58] LABS: Alanine Aminotransferase 23 U/L (6-50); Albumin Level 4.3 g/dL (3.5-5.1); Alkaline Phosphatase 90 U/L (38-126); Anion Gap 6 mmol/L (4-12); Aspartate Amino Transferase 33 U/L (17-59); Bilirubin,Total 0.7 mg/dL (0.2-1.3); Blood Urea Nitrogen 19 mg/dL (9-20); Calcium 9.7 mg/dL (8.4-10.2); Carbon Dioxide 30 mmol/L (22-30); Chloride 106 mmol/L (98-107); Estimated Glomerular Filt Rate > 60; Glucose 93 mg/dL (65-110); Osmolality Calculated 296 mOsm/kg (285-295); Potassium 4.3 mmol/L (3.4-5.0); Sodium 142 mmol/L (137-145); Total Protein 7.6 g/dL (6.3-8.2)
[2025-04-06 11:09] LABS: CA 19-9 31 U/mL (0-35)
== END 2025-04-05 07:58 | disposition home or self-care (01) ==
PROVIDERS: PCP Family Medicine; Visit Provider Internal Medicine Hematology & Oncology
DX: C25.9 Malignant neoplasm of pancreas, unspecified (principal)
CPT/HCPCS: 36415; 80053; 85025; 86301

== ENCOUNTER 2025-05-11 09:56 | Emergency (ER) | payer MEDICARE, SELFPAY ==
--- NOTE | ~2025-05-11 | XR_ITS ---
EXAMINATION: XR femur RT min 2V, 05/11/2025 10:10 PANEL SAW OPERATOR HISTORY: Right leg pain COMPARISON: No comparisons available. Findings: No acute fracture or malalignment. Moderate degenerative changes Soft tissues unremarkable. Impression: No acute fracture or malalignment. Reviewed, dictated and finalized at location P. L SAW OPERATOR Impression: No acute fracture or malalignment.
--- NOTE | ~2025-05-11 | XR_ITS ---
EXAMINATION: XR knee RT 3V, 05/11/2025 10:10 ELECTRIC ARC WELDER HISTORY: Knee pain COMPARISON: No comparisons available. Findings: No acute fracture or malalignment. Moderate to severe tricompartmental degenerative changes Soft tissues unremarkable. Impression: No acute fracture or malalignment. Reviewed, dictated and finalized at location P. TRIC ARC WELDER Impression: No acute fracture or malalignment.
--- NOTE | ~2025-05-11 | XR_ITS ---
EXAMINATION: XR hip RT min 3V w AP pelvis, 05/11/2025 10:10 MEDICAL ASSISTANT SUPERVISOR HISTORY: Hip pain COMPARISON: No comparisons available. Findings: No acute fracture or malalignment. Moderate severe degenerative changes Soft tissues unremarkable. Impression: No acute fracture or malalignment. Reviewed, dictated and finalized at location P. CAL ASSISTANT SUPERVISOR Impression: No acute fracture or malalignment.
[2025-05-11 09:56] VITALS: BP 111/80; PULSE 78; RESP 20; TEMP 36.6; O2SAT 98
--- NOTE | 2025-05-11 10:41 | ED.EXTPRO ---
HPI - Extremity Problem General Chief complaint: Extremity Problem,Nontraumatic Stated complaint: right knee pain Time Seen by Provider: 05/11/25 10:04 Source: patient and family Mode of arrival: ambulatory Limitations: no limitations History of Present Illness HPI Narrative: This is a 79-year-old male with history of CAD woke up around 2 in the morning after he heard a pop and pain sensation in his right hip has a history of osteoarthritis of the right knee has good range of motion although limited secondary to pain. No other injuries no acute injuries of his hip or knee no shortness of breath no chest pain no fever chills no abdominal pain or dysuria. MD Complaint: extremity pain Onset (ago): hour(s) Pain Consistency: constant Location: right Severity scale (1-10): 4 Quality: aching Relieving factors: immobilization Related Data Home Medications ?Medication ?Instructions ?Recorded ?Confirmed ?Last Taken ?Type uzbgyeow-sgr- 250 mg-dha 90 1 cap PO DAILY 03/24/22 02/06/25 05/11/24 History mg-epa 160 hz-iljx-tbhd-zeax capsule (Ocuvite Adult 50 Plus) acetaminophen 500 mg tablet 500 mg PO Q6H PRN 12/07/24 02/06/25 Unknown History (Tylenol Extra Strength) garlic 1 mg capsule 1 mg PO DAILY 12/07/24 02/06/25 Unknown History lutein 20 mg capsule 20 mg PO DAILY 12/07/24 02/06/25 Unknown History aspirin 81 mg tablet 81 mg PO DAILY 02/06/25 02/06/25 Unknown History clopidogrel 75 mg tablet 75 mg PO DAILY 02/06/25 02/06/25 Unknown History faricimab-svoa 6 mg/0.05 mL 6 mg intravitreal ONCE 02/06/25 02/06/25 Unknown History intravitreal syringe (Vabysmo) inclisiran 284 mg/1.5 mL 284 mg subcut [id number] 02/06/25 02/06/25 Unknown History subcutaneous syringe (Leqvio) Allergies Allergy/AdvReac Type Severity Reaction Status Date / Time Penicillins AdvReac Intermediate Nausea, Verified 05/11/25 09:58 HEADACHE Review of Systems Review of Systems: All systems reviewed & are unremarkable except as noted in HPI and below PMFSH Past Medical History Medical History CAD (coronary atherosclerotic disease) Neck pain Osteoarthritis Elevated PSA Hyperlipidemia Dementia AAA (abdominal aortic aneurysm) Seizure Surgical History Surgical History Status post total knee replacement, 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) H/O shoulder surgery Family History Family History Mother Family history of malignant neoplasm of breast in first degree relative Father Stomach cancer Alcoholism Social History Social History Smoking packs per day: 2 Smoking cigarettes per day: 40.0 Years smoked: 40 Smoking pack-years: 80.00 Smoking status: Former smoker Tobacco type: cigarettes and smokeless tobacco Smokeless tobacco user: chewing tobacco Second hand tobacco smoke exposure: No Smoking end date: 12/21/99 Alcohol intake: current Drinks per week: 2 Substance use: never Lack of Transportation: No Lack of Food: Sometimes True Current Housing: I Have Housing Concerned About Future Housing: No Difficulty Paying Gas/Electric Bills: YES Difficulty Paying for Meds: YES Currently Unemployed: No Education: High School Diploma/GED Difficulty w/ Childcare or Family Care: No Living arrangements: with family Additional living arrangements comments: 2 boys Occupation/Education: retired Gender identity (if verbalized by the patient): Male Spiritual care concerns: No Agree to blood products: No Exam Const: General: healthy appearing and no acute distress Nutritional Appearance: well nourished Orientation/consciousness: patient oriented x3 Limitations: no limitations Chest: Chest palpation & inspection: normal inspection of the chest Resp: Effort & Inspection: normal respiratory effort Auscultation: clear to auscultation bilaterally Cardio: Rate: regular rate Rhythm: regular rhythm GI: GI Palp: Yes Soft to palpation Auscultation: normal bowel sounds : General: Yes bladder normal to palpation Back/Spine/Pelvis: Back: no CVA tenderness Skin: General skin exam: normal color Rashes: no rashes Wounds: no wounds Neuro: General: patient oriented x3, moves all extremities and no meningeal signs Extrem: Other: Tender right hip area with palpation and movement Course Course Emergency Course: Medical decision making narrative: The patient was evaluated by myself in the emergency department. History obtained from the patient who is an independent historian and physical exam performed and witnessed by nurse. Patient had x-rays performed which showed no acute fractures. Repeat assessment patient doing well on repeat exam patient in no acute distress Symptoms stable since arrival to the emergency department patient repeat vitals are stable Patient agrees with discussion after shared medical decision making and agrees with discharge All questions answered to the patient's satisfaction Advised follow-up with primary within 3 to 5 days for further evaluation and treatment. Vital Signs Vital signs: Vital Signs Temperature 36.6 C 05/11/25 09:56 Pulse Rate 78 05/11/25 09:56 Respiratory Rate 20 05/11/25 09:56 Blood Pressure 111/80 05/11/25 09:56 Pulse Oximetry 98 05/11/25 09:56 Oxygen Delivery Room Air 05/11/25 09:56 Temperature 36.6 C 05/11/25 09:56 Pulse Rate 78 05/11/25 09:56 Respiratory Rate 20 05/11/25 09:56 Blood Pressure 111/80 05/11/25 09:56 Pulse Oximetry 98 05/11/25 09:56 Oxygen Delivery Room Air 05/11/25 09:56 Critical Care Time Critical Care Time Critical Care Time: No Discharge Plan Discharge Clinical Impression: Sprain and strain of hip Osteoarthritis Qualifiers: Osteoarthritis location: hip Osteoarthritis type: primary Laterality: right Qualified Code(s): M16.11 - Unilateral primary osteoarthritis, right hip Patient Disposition: Home Condition: Stable Instructions: Antibiotic Form, Sprain (ED) Additional Instructions: Advised patient to take Tylenol as needed and follow with primary within the next 3 to 5 days further evaluation and treatment. Patient Language: Finnish Prescriptions: No Action Ocuvite Adult 50 Plus 250 mg (90 mg-160 mg) capsule 1 cap PO DAILY clopidogrel 75 mg tablet 75 mg PO DAILY Leqvio 284 mg/1.5 mL syringe 284 mg subcut [id number] Vabysmo 6 mg/0.05 mL syringe 6 mg intravitreal ONCE aspirin 81 mg tablet 81 mg PO DAILY lutein 20 mg capsule 20 mg PO DAILY Rx Instructions: give with meal/snack garlic 1 mg capsule 1 mg PO DAILY acetaminophen [Tylenol Extra Strength] 500 mg tablet 500 mg PO Q6H PRN Follow-up/Referrals: Gardenia Mike NP [Primary Care Provider, Family Practice]
--- OUTSIDE RECORDS SUMMARY | 2025-05-11 11:39 | XMS_ITS | Clinical Summary ---
[facility] Address [address] [place] [address] Care Team Providers Care Pipe Bender Name Role Phone Cody Contreras DO Primary [...] by subcutaneous injection one time only. Active garlic (garlic oiL) 1,000 mg Capsule Take 1,000 mg by mouth. 5 Active acetaminophen (TYLENOL) 500 mg Capsule Take 500 mg by mouth every 4 hours as needed. Active aspirin (ECOTRIN EC) 81 mg Tablet, Delayed Release (E.C.) Take 81 mg by mouth daily. 07/16/202 5 Active lutein 40 mg Capsule Take 40 mg by mouth daily. Active faricimab-svoa (Vabysmo) 6 mg/0.05 mL Solution 6 mg by Intravitreal route one time only. Active Active Problems Problem Noted Date Diagnosed Date IPMN (intraductal papillary mucinous neoplasm) 1 Resolved Problems Problem Noted Date Diagnosed Date Resolved Date Pancreatic cancer 07/27/2024 04/18/2025 Encounters Date Type Department Care Team Description 04/25/2025 External Device Data STL ABSTRACTION Provider, Abstract 04/25/2025 External Device Data STL ABSTRACTION Provider, Abstract 04/19/2025 External Device Data STL ABSTRACTION Provider, Abstract 04/18/2025 Telephone [facility] Surgical Oncology [place] [address] [place] [address] Mary Khanna MD FU appointment and MRI 04/17/2025 1:00 PM CDT Office Visit [facility] Surgical Oncology [place] [address] [facility] [address] [place] [address] Mary Khanna MD IPMN (intraductal papillary mucinous neoplasm) (Primary Dx) 04/12/2025 2:45 PM CDT Office Visit [facility] Oncology and Hematology [facility] [address] [place] [address] Tad Duckworth MD Pancreas carcinoma (CMS/HCC) (Primary Dx); IPMN (intraductal papillary mucinous neoplasm) 04/06/2025 Orders Only [facility] Oncology and Hematology [place] [address] [place] [address] Tad Duckworth MD 04/05/2025 Orders Only [facility] Oncology and Hematology [place] [address] [place] [address] Tad Duckworth MD 03/22/2025 10:53 AM CDT - 03/22/2025 11:59 PM CDT Hospital Encounter [address] [place] [address] Mary Khanna MD Discharge Disposition: Home or Self Care 02/09/2025 Abstract [facility] Oncology and Hematology [facility] [address] [place] [address] Tad Duckworth MD from Last 3 Months Family History Medical History Relation Name Comments No Known Problems Brother No Known Problems Child No Known Problems Father Breast Cancer Mother No Known Problems Sister Relation Name Status Comments Brother Alive Child Alive Father Mother Sister Alive Social History Tobacco Use Types Packs/Day Years Used Date Smoking Tobacco: Former Cigarettes 2 70.9 S tarted: 06/22/1954 Smokeless Tobacco: Former Chew Quit: 06/22/1998 Tobacco Cessation:Counseling Given: Not Answered Alcohol Use Standard Drinks/Week Comments Yes 0 (1 standard drink = 0.6 oz pur e alcohol) holidays Sex and Gender Information Value Date Recorded Sex Assigned at Male 07/01/2024 8:25 AM HEALTH OCCUPATIONS 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 Legal Sex Male 9:04 AM HEALTH OCCUPATIONS TEACHER Gender Identity Not on file Sexual Orientation Asexual 07/01/2024 8: 25 AM HEALTH OCCUPATIONS TEACHER Last Filed Vital Signs Vital Sign Reading Time Taken Comments Blood Pressure 124/70 04/17/2025 12:59 PM CDT Pulse 70 04/17/2025 12:59 PM CDT Temperature 36.4 C (97.6 F) 04/17/2025 12:59 PM CDT Respiratory Rate 14 04/12/2025 2:29 PM CDT Oxygen Saturation 97% 04/17/2025 12:59 PM CDT Inhaled Oxygen Concentration - - Weight 82.6 kg (182 lb) 04/17/2025 12:59 PM CDT Height 177.8 cm (5' 10) 04/17/2025 12:59 PM CDT Body Mass Index 26.11 04/17/2025 12:59 PM CDT Plan of Treatment Upcoming Encounters Date Type Department Care Team (Late st Contact Info) Description 02/15/2026 11:15 AM CDT Office Visit [facility] Oncology and Hematology [place] [address] [facility] [facility] [address] [place] [phone] Tad Duckworth MD [address] [facility] [address] [place] [address] 04/02/2026 10:00 AM CDT Appointment [address] [place] [phone] Mary Khanna MD [address] [place] [address] 04/16/2026 9:00 AM CDT Office Visit [facility] Surgical Oncology [place] [address] [place] [address] Mary Khanna MD [address] [place] [address] Health Maintenance Due Date Last Done Comments DTAP/TDAP/TD VACCINES (1 - Tdap) 1964 PNEUMOCOCCAL VACCINE 50+ YEARS (1 of 2 - PCV) 09/29/18 66 ZOSTER VACCINE (1 of 2) 1996 RSV VACCINE (60+ or ) (1 - 1-dose 75+ series) 2021 INFLUENZA VACCINE (#1) 2025 Procedures Procedure Name Priority Date/Time Associated Diagnosis Comments CHG CA 19 9 Routine 04/05/2025 4:20 PM CDT COMPREHENSIVE METABOLIC PANEL Routine 04/05/2025 11:57 AM CDT CBC WITH AUTODIFFERENTIAL Routine 04/05/2025 11:53 AM CDT MRI MRCP W AND WO CONTRAST Routine 03/22/2025 12:11 PM CDT IPMN (intraductal papillary mucinous neoplasm) from Last 3 Months Results * CHG CA 19 9 (04/05/2025 4:20 PM CDT) Tad Duckworth MD CHG - LABORATORY Final Result * COMPREHENSIVE METABOLIC PANEL (04/05/2025 11:57 AM CDT) Blood us Tad Duckworth MD CHEMISTRY ORDERABLES Final Resu lt * CBC WITH AUTODIFFERENTIAL (04/05/2025 11:53 AM CDT) Blood us Tad Duckworth MD HEMATOLOGY ORDERABLES Final Res ult * MRI MRCP W AND WO CONTRAST [...] hepatic steatosis. DICTATION LOCATION: Location 1 - [facility] Narrative 03/22/2025 2:27 PM CDT EXAMINATION: ABDOMINAL [...] hepatic steatosis. DICTATION LOCATION: Location 1 - [facility] Mary Khanna MD MR ORDERABLES Final Result from Last 3 Months Insurance MEDICARE RAILROAD [facility] MEDICARE RAILROAD [facility] SUPP MEDICARE RAILROAD Care Teams Pipe Bender Relationship Specialty Start Date End Date Cody Contrears DO [address] [place] [address] PCP - General Family Practice 07/28/24
--- OUTSIDE RECORDS SUMMARY | 2025-05-11 11:39 | XMS_ITS ---
Author Organization [facility] Address [address] [place] [address] Care Team Providers Care Master [employer] Name Role Phone Cody Contreras DO Primary Care Provider [phone] Active Problems Problem Noted Date Diagnosed Date IPMN (intraductal papillary mucinous neoplasm) 1 Current Treatment and Therapy Plans No current [...] Min 8.48 mGy 8.48 mGy 0 mGy Resolved Problems Problem Noted Date Diagnosed Date Resolved Date Pancreatic cancer 07/27/2024 04/18/2025
== END 2025-05-11 10:52 | disposition home or self-care (01) ==
LOC: CHSED 10:52
PROVIDERS: Emergency Provider Emergency Medicine; PCP Nurse Practitioner Family
DX: M16.11 Unilateral primary osteoarthritis, right hip (principal); S73.101A Unspecified sprain of right hip, initial encounter; S76.911A Strain of unspecified muscles, fascia and tendons at thigh level, right thigh, initial encounter; I25.10 Atherosclerotic heart disease of native coronary artery without angina pectoris; E78.5 Hyperlipidemia, unspecified; F03.90 Unspecified dementia, unspecified severity, without behavioral disturbance, psychotic disturbance, mood disturbance, and anxiety; Z87.891 Personal history of nicotine dependence; X58.XXXA Exposure to other specified factors, initial encounter
CPT/HCPCS: 73502; 73552; 73562; 99284

== ENCOUNTER 2025-05-22 09:42 | Outpatient (CLI) | payer MEDICARE, SELFPAY ==
--- NOTE | ~2025-05-22 | XR_ITS ---
EXAMINATION: XR heel LT min 2V, 05/22/2025 10:20 EXPANSION JOINT BUILDER HISTORY: M79.672 - Pain in left foot COMPARISON: No comparisons available. Findings: No acute fracture or malalignment. No significant degenerative changes. Soft tissues unremarkable. Impression: No acute fracture or malalignment. Reviewed, dictated and finalized at location P. NSION JOINT BUILDER Impression: No acute fracture or malalignment.
--- NOTE | ~2025-05-22 | XR_ITS ---
EXAMINATION: XR chest 2V 05/22/2025 10:31 INDICATION: Preop evaluation PROCEDURE: 2 view chest COMPARISON: Comparison to multiple prior studies sequentially, with oldest reviewed study dated 03/21/2020. FINDINGS: The lungs are clear. The cardiomediastinal silhouette is within normal limits. There are no pleural effusions. There is no pneumothorax suspected. IMPRESSION: 1: NO ACUTE CARDIOPULMONARY DISEASE. Reviewed, dictated and finalized at location I. 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
[2025-05-22 10:03] LABS: Hematocrit 43.9 % (37.0-46.0); Hemoglobin 14.5 g/dL (12.4-15.3); Immature Granulocyte Percent A 0.2 % (0.0-0.0); Lymphocytes Absolute Auto 1.95 K/mm3 (1.10-4.50); Mean Corpuscular HGB Conc 33.0 g/dL (32-36); Mean Corpuscular Hemoglobin 31.9 pg (27.0-31.0); Mean Corpuscular Volume 96.7 fL (78.0-102.0); Nucleated Red Blood Cells Absolute Auto 0.00 K/mm3 (0.00-0.00); Nucleated Red Blood Cells Perc 0.0 % (0-0.0); Platelet Count Result 268 K/mm3 (150-420); Red Blood Count 4.54 M/mm3 (4.70-6.10); White Blood Count 4.6 K/mm3 (4.8-10.8)
[2025-05-22 10:07] LABS: Add Urine Microscopic? NO; Appearance Urine Clear (Clear); Glucose Urine UA Negative (Negative); Leukocyte Esterase Ur Negative LEU/UL (Negative); Nitrate Urine Negative (Negative); Specific Grav Ur 1.025 (1.010-1.020)
--- NOTE | 2025-05-22 10:07 | ECG_ITS ---
Test Date: 2025-05-22 10:14:46 Measurements Intervals Casey Rate: 58 P: 62 ID: [id number] QRS: -51 QRSD: 117 T: 38 QT: 418 QTc: 411 Interpretive Statements SINUS BRADYCARDIA INCOMPLETE RIGHT BUNDLE BRANCH BLOCK LEFT ANTERIOR FASCICULAR BLOCK ABNORMAL ECG Compared to ECG 12/07/2024 16:17:04 Right bundle-branch block no longer present Electronically Signed On 05-22-2025 10:47:05 OPTICAL ELEMENT COATER by Tex Vila D.O.
[2025-05-22 10:16] LABS: INR 0.9; Prothrombin Time 10.2 Seconds (9.50-12.1)
[2025-05-22 10:19] LABS: Alanine Aminotransferase 24 U/L (6-50); Albumin Level 4.4 g/dL (3.5-5.1); Alkaline Phosphatase 85 U/L (38-126); Anion Gap 9 mmol/L (4-12); Aspartate Amino Transferase 33 U/L (17-59); Bilirubin,Total 0.3 mg/dL (0.2-1.3); Blood Urea Nitrogen 25 mg/dL (9-20); Calcium 9.3 mg/dL (8.4-10.2); Carbon Dioxide 29 mmol/L (22-30); Chloride 106 mmol/L (98-107); Estimated Glomerular Filt Rate > 60; Glucose 73 mg/dL (65-110); Osmolality Calculated 301 mOsm/kg (285-295); Potassium 4.0 mmol/L (3.4-5.0); Sodium 144 mmol/L (137-145); Total Protein 7.1 g/dL (6.3-8.2)
--- OUTSIDE RECORDS SUMMARY | 2025-05-22 10:37 | XMS_ITS | Encounter Summary ---
Author Organization [facility] Address [address] [place] [address] Phone Care Team Providers Care Post Doctoral Fellow Name Role Phone Cody Contreras DO Primary Care Provider Encounter Details Date Type Department Care Team (Late st Contact Info) Description 05/03/2025 Results Follow-Up [facility] Medicine Cardiology [address] [facility] Advanced Medicine 8th [place] [address] [place] [address] Danny Deras MD [address] [facility] [address] [place] [address] PET/CT Myocardial Perfusion Imaging (Multiple) Social History Tobacco Use Types Packs/Day Years [...] on filedocumented in this encounter Care Teams Post Doctoral Fellow Relationship Specialty Start Date End Date Cody Contreras DO [address] [place] [address] PCP - General Family Medicine 05/02/20 documented as of this encounter
--- OUTSIDE RECORDS SUMMARY | 2025-05-22 10:37 | XMS_ITS | Encounter Summary ---
Author Organization [facility] Address [address] [place] [address] Phone Care Team Providers Care Food Services Manager Name Role Phone Cody Contreras DO Primary Care Provider Encounter Details Date Type Department Care Team (Late st Contact Info) Description 05/03/2025 Results Follow-Up [facility] Medicine Cardiology [address] [facility] Advanced Medicine 8th [place] [address] [place] [address] Danny Deras MD [address] [facility] [address] [place] [address] PET Stress Test Social History Tobacco Use Types Packs/Day Years [...] on filedocumented in this encounter Care Teams Food Services Manager Relationship Specialty Start Date End Date Cody Contreras DO [address] [place] [address] PCP - General Family Medicine 05/02/20 documented as of this encounter
--- OUTSIDE RECORDS SUMMARY | 2025-05-22 10:37 | XMS_ITS ---
Author Organization [facility] Address [address] [place] [address] Care Team Providers Care Cigar Binder Name Role Phone Cody Contreras DO Primary Care Provider [phone] Active Problems Problem Noted Date Diagnosed Date [...]
--- OUTSIDE RECORDS SUMMARY | 2025-05-22 10:37 | XMS_ITS | Encounter Summary ---
Author Organization [facility] Healthcare Address [address] [place] [address] Care Team Providers Care Form Raiser Name Role Phone [email or web address] Primary Care Provider Encounter Details Date Type Department Care Team (Late st Contact Info) Description 05/16/2024 Orders Only [facility] Health Information Management [address] [place] [address] Scanning, Provider Social History Tobacco Use [...] on filedocumented in this encounter Care Teams Form Raiser Relationship Specialty Start Date End Date Cody Contreras DO [address] [place] [address] PCP - General Family Medicine 05/02/20 documented as of this encounter
--- OUTSIDE RECORDS SUMMARY | 2025-05-22 10:37 | XMS_ITS | Clinical Summary ---
Author Organization [facility] Address [address] [place] [address] Care Team Providers Care Paper Coating Supervisor Name Role Phone Cody Contreras DO Primary Care Provider [phone] Allergies Active Allergy Reactions Criticality Noted Date [...] Data STL ABSTRACTION Provider, Abstract 04/18/2025 Telephone [facility] Surgical Oncology [place] [address] [place] [address] Mary Khanna MD FU appointment and MRI 04/17/2025 1:00 PM CDT Office Visit [facility] Surgical Oncology [place] [address] [facility] [address] [place] [address] Mary Khanna MD IPMN (intraductal papillary mucinous neoplasm) (Primary Dx) 04/12/2025 2:45 PM CDT Office Visit [facility] Oncology and Hematology [facility] [address] [place] [address] Tad Duckworth MD Pancreas carcinoma (CMS/HCC) (Primary Dx); IPMN (intraductal papillary mucinous neoplasm) 04/06/2025 Orders Only [facility] Oncology and Hematology [place] [address] [place] [address] Tad Duckworth MD 04/05/2025 Orders Only [facility] Oncology and Hematology [place] [address] [place] [address] Tad Duckworth MD 03/22/2025 10:53 AM CDT - 03/22/2025 11:59 PM CDT Hospital Encounter [address] [place] [address] Mary Khanna MD Discharge Disposition: Home or Self Care from Last 3 Months Family History Medical [...] Sex Assigned at Male 07/01/2024 8:25 AM DERMATOLOGY NURSE PRACTITIONER Legal Sex Male 9:04 AM DERMATOLOGY NURSE PRACTITIONER Gender Identity Not on file Sexual Orientation Asexual 07/01/2024 8: 25 AM DERMATOLOGY NURSE PRACTITIONER Last Filed Vital Signs Vital Sign Reading [...] Description 02/15/2026 11:15 AM CDT Office Visit [facility] Oncology and Hematology - [place] [address] [place] [address] Tad Duckworth MD [address] [facility] [address] [place] [address] 04/02/2026 10:00 AM CDT Appointment [address] [place] [address] Mary Khanna MD [address] [place] [address] 04/16/2026 9:00 AM CDT Office Visit [facility] Surgical Oncology [place] [address] [place] [address] Mary Khanna MD [address] [place] [address] Health Maintenance Due Date Last Done Comments DTAP/TDAP/TD VACCINES (1 - Tdap) 1965 PNEUMOCOCCAL VACCINE 50+ YEARS (1 of 2 - PCV) 09/29/18 ZOSTER VACCINE (1 of 2) 1996 RSV [...] hepatic steatosis. DICTATION LOCATION: Location 1 - [facility] Narrative 03/22/2025 2:27 PM CDT [...] hepatic steatosis. DICTATION LOCATION: Location 1 - [facility] Mary Khanna MD MR ORDERABLES Final Result from Last 3 Months Insurance MEDICARE [facility] RA[facility] Care Teams Paper Coating Supervisor Relationship Specialty Start Date End Date Cody Contreras DO [address] [place] [address] PCP - General Family Practice 07/28/24
--- OUTSIDE RECORDS SUMMARY | 2025-05-22 10:37 | XMS_ITS | Clinical Summary ---
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,Hyperc holesterolemia Take 1 tablet (5 mg total) by mouth daily 30 tablet 11 04/14/2025 Active Active Problems Problem Noted Date Diagnosed [...] (02/14/2022): Added automatically from request for surgery [id number] PLMD (periodic limb movement disorder) Spell of altered cognition 01/23/2021 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 12/13/2019 Overview (12/13/2019): Added automatically from request for surgery [id number] Encounters Date Type Department Care Team Description 05/03/2025 Results Follow-Up [facility] Medicine Cardiology [address] [facility] [address] [place] [address] [place] [address] Danny Deras MD PET Stress Test 05/03/2025 Results Follow-Up [facility] Medicine Cardiology [address] [facility] 8th [place] [address] [place] [address] Danny Deras MD PET/CT Myocardial Perfusion Imaging (Multiple) 05/02/2025 12:29 PM SECTION HOUSEKEEPER - 05/02/2025 11:59 PM SECTION HOUSEKEEPER Hospital Encounter [facility] [place] [address] Discharge Disposition: Discharge to home or self care 05/02/2025 12:29 PM SECTION HOUSEKEEPER - 05/02/2025 11:59 PM SECTION HOUSEKEEPER Hospital Encounter [facility]) [address] [place] [id number] Preoperative cardiovascular examination; Ischemic heart disease; S/P drug eluting coronary stent placement; Coronary artery disease of [place] artery of [place] heart with stable angina pectoris Discharge Disposition: Discharge to home or self care 04/14/2025 Telephone [facility] Cardiology [facility] 8th [place] [address] [place] [address] Danny Deras MD 04/10/2025 Telephone [facility] Cardiology [facility] [address] [place] [address] [place] [address] Danny Deras MD 03/17/2025 Results Follow-Up [facility] Cardiology [facility] [address] [place] [address] [place] [address] Danny Deras MD Pulmonary Function Test - 03/16/2025 2:33 PM CDT - 03/16/2025 11:59 PM CDT Hospital Encounter [facility] Pulmonary [facility] [address] [place] [address] Shortness of breath Discharge Disposition: Discharge to home or self care 03/08/2025 10:00 AM CDT Infusion [facility] Non-Oncology Infusion [address] [place] [address] Gardenia Cota RN Dyslipidemia (Primary Dx); Coronary artery disease involving [place] heart with angina pectoris, unspecified vessel or lesion type 03/02/2025 4:40 PM CDT Office Visit [facility] Cardiology [facility] [address] [place] [address] [place] [address] Danny Deras MD Preoperative cardiovascular examination (Primary Dx); Ischemic heart disease; S/P drug eluting coronary stent placement; Hypercholesterolemia; Statin intolerance; Right bundle branch block (RBBB) with left anterior fascicular block (LAFB); Claudication; Shortness of breath from Last 3 Months Surgical History Surgery [...] Father t r pfalzgraf Cancer Mother m abbey pfalzgrerika Vision loss Mother m abbey pfalzgrerika Relation Name Status Comments Father t r pfalzgrerika Mother viky potter pfalzgrerika Social History Tobacco Use Types Packs/Day Years [...] Sign Reading Time Taken Comments Blood Pressure 153/83 05/02/2025 1:35 PM SECTION HOUSEKEEPER Pulse 72 05/02/2025 1:35 PM SECTION HOUSEKEEPER Temperature 36.9 C (98.4 F) 03/08/2025 9:45 [...] history exists Medical Devices Implanted Type Area Municipal Firefighter Device Identifier Shelf Expiration Date Model / Serial / Lot Other - See Comments Other - see comments Left: Knee Description:Prosthetic knee, 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 [employer] [id number] Device Ventricular Assist 17.4x13.8in Impella Cp 9.3in 10-40 - [id number] Implanted:Qty: 1 on 12/15/2019 by Shaun Jones MD at [facility] [employer] [id number] [id number] / / [employer] X [id number] Resolute Jesus 4.5mm 2.1-2.7fr 15mm 140cm Rapid Exchange - [id number] Implanted:Qty: 1 on 12/15/2019 by Shaun Jones MD at [facility] [employer] [id number] 06/04/2021 [id number] / / [id number] [employer] Iad [id number] Synergy 3mm 16mm 144cm Radiopaque 1 Access Port Inflation Lumen - [id number] Implanted:Qty: 1 on 12/15/2019 by Shaun Jones MD at [facility] [employer] Ida [id number] / / Daig Ida [id number] Device Closure Angio-Seal Vip Bondek-Plus Polyglyd L70 Cm Od6 Fr Odsec.035 In Vascular - [id number] Implanted:Qty: 1 on 12/15/2019 by Shaun Jones MD at [facility] [id number] / / Procedures Procedure Name Priority Date/Time Associated Diagnosis Comments PET STRESS TEST Schedule Routine, Read Routine (OP Routine) 05/02/2025 4:15 PM SECTION HOUSEKEEPER Preoperative cardiovascular examination Ischemic heart disease S/P drug eluting coronary stent placement Coronary artery disease of [place] artery of [place] heart with stable angina pectoris PET/CT MYOCARDIAL PERFUSION IMAGING (MULTIPLE) Schedule Routine, Read Routine (OP Routine) 05/02/2025 4:15 PM SECTION HOUSEKEEPER Preoperative cardiovascular examination Ischemic heart disease S/P drug eluting coronary stent placement Coronary artery disease of [place] artery of [place] heart with stable angina pectoris PULMONARY FUNCTION TEST (PFT) Routine 03/16/2025 3:22 PM CDT Shortness of breath from Last 3 Months Results * PET Stress Test (05/02/2025 4:15 PM SECTION HOUSEKEEPER) Anatomical Region Laterality Modality N/A Positron Emissio n Tomography (PET) 05/02/2025 4:27 PM SECTION HOUSEKEEPER Impressions 05/02/2025 4:27 PM SECTION HOUSEKEEPER Asymptomatic and electrocardiographically normal pharmacologic stress test I personally supervised and was present throughout the stress test. Refer to for the separate report of the PET myocardial perfusion imaging results. Electronically signed by: Tutu Solis M.D. Narrative 05/02/2025 4:27 PM SECTION HOUSEKEEPER EXAMINATION: PHARMACOLOGIC STRESS TEST FOR CARDIAC PET MYOCARDIAL PERFUSION IMAGING DATE OF STUDY: 05/02/2025 INDICATION FOR STUDY:CP. CAD, PCI, HLD, HTN, former smoker PHARMACOLOGIC STRESS AGENT: 0.4 mg regadenoson i.v. FINDINGS: Resting electrocardiogram: SR with 65 BPM, left access and normal NE, incomplete RBB, early r/s in v2 and normal repolarization Stress electrocardiogram: No arrhythmia and no ST alterations. Symptoms during stress test: None Regadenoson Stress and hemodynamics: The patient received 0.4 mg of the A2A adenosine receptor agonist regadenoson (Lexiscan), infused intravenously over 10 seconds, followed approximately 20 seconds later by tracer infusion. Resting heart rate was 63 beats per minute and shannon to a maximum of 91 beats per minute two minutes post Lexiscan injection. Resting blood pressure was 153/83mm Hg and dropped to a ibrahima of 125/69 mm Hg. The test was stopped at the completion of the protocol. Procedure Note Tutu Solis MD - 05/02/2025 EXAMINATION: PHARMACOLOGIC STRESS TEST FOR CARDIAC PET MYOCARDIAL PERFUSION IMAGING DATE OF STUDY: 05/02/2025 INDICATION FOR STUDY:CP. CAD, PCI, HLD, HTN, former smoker PHARMACOLOGIC STRESS AGENT: 0.4 mg regadenoson i.v. FINDINGS: Resting electrocardiogram: SR with 65 BPM, left access and normal NE, incomplete RBB, early r/s in v2 and normal repolarization Stress electrocardiogram: No arrhythmia and no ST alterations. Symptoms during stress test: None Regadenoson Stress and hemodynamics: The patient received 0.4 mg of the A2A adenosine receptor agonist regadenoson (Lexiscan), infused intravenously over 10 seconds, followed approximately 20 seconds later by tracer infusion. Resting heart rate was 63 beats per minute and shannon to a maximum of 91 beats per minute two minutes post Lexiscan injection. Resting blood pressure was 153/83mm Hg and dropped to a ibrahima of 125/69 mm Hg. The test was stopped at the completion of the protocol. IMPRESSION: Asymptomatic and electrocardiographically normal pharmacologic stress test I personally supervised and was present throughout the stress test. Refer to for the separate report of the PET myocardial perfusion imaging results. Electronically signed by: Tutu Solis M.D. Danny Deras MD IM PET PROCEDURES Final Result * PET/CT Myocardial Perfusion Imaging (Multiple) (05/02/2025 4:15 PM SECTION HOUSEKEEPER) Anatomical Region Laterality Modality Body N/A Positron Emissio n Tomography (PET) 05/02/2025 5:04 PM SECTION HOUSEKEEPER Impressions 05/02/2025 5:04 PM SECTION HOUSEKEEPER 1. Normal rest and pharmacologic-stress myocardial perfusion. 2. Normal left ventricular size and systolic function. 3. Flow quantification with normal global MFR of 2.81 signifies normal coronary microvascular function. (For detailed flow values, please see table in results). [place] and Zhou Shaw also participated in the interpretation of this examination. Electronically signed by: Tutu Solis M.D. Narrative 05/02/2025 5:04 PM SECTION HOUSEKEEPER EXAMINATION: MYOCARDIAL PET/CT PERFUSION IMAGING (STRESS/REST) DATE OF STUDY: 05/02/2025 SCANNER: [facility] [employer] (NV1). RADIOPHARMACEUTICAL: 7.72 mCi i.v., 15.22 mCi i.v., Injection site: HISTORY: CAD, PCI, HLD, HTN, former smoker. Evaluate for ischemia and/or microvascular dysfunction. The patient's body mass index (BMI) was 25kg/m2. TECHNIQUE: Both stress and rest imaging were performed, in the following order: rest/stress. Regadenoson Stress: The patient received 0.4 mg of the A2A adenosine receptor agonist regadenoson (Lexiscan) infused intravenously over 10 seconds, followed approximately 20 seconds later by radiopharmaceutical injection. The electrocardiogram during infusion of the stress agent was negative for ischemia. The patient reported no symptoms during vasodilation. See for a full report of the ECG pharmacologic stress test findings. Imaging: Dynamic rest PET/CT myocardial perfusion images were obtained immediately after radiopharmaceutical injection under rest. In addition, dynamic peak-stress PET/CT myocardial perfusion images were obtained beginning immediately after radiopharmaceutical injection at the peak effect of the drug. The low-dose noncontrast CT images were used for attenuation correction of the PET images and for localization of any abnormal extracardiac tracer uptake. COMPARISON: none FINDINGS: There is widely normal distribution of activity in the left and right ventricular myocardium on both stress and rest images. No reversibility to suggest ischemia. Normal rest perfusion. Gated peak-stress images demonstrate normal left ventricular wall thickening. The left ventricular volume is normal and the left ventricular ejection fraction is 46% (normal >45%). Additional gated rest images demonstrate normal left ventricular wall thickening and an underestimated resting left ventricular ejection fraction of 43%. Quantitative analysis of myocardial blood flow (MBF) in ml/g/min and myocardial flow reserve (MFR), calculated using 4DFluxome software: MBF-stress MBF-rest MFR LAD: 1.89 0.68 2.79 LCx: 2.13 0.76 2.81 RCA: 1.86 0.64 2.90 Global: 1.94 0.69 2.81 (Normal N-13 values: rest MBF 0.8 - 1.2 mL/g/min; stress(hyperemic) MBF >2.0 mL/g/min; MFR>2.0) Incidental findings on the CT images: Calcified nodules subpleural RLL, calcified LNs perihilar right, s.p. PCI and stent, mild aortic calcifications, spondylosis. Procedure Note Tutu Solis MD - 05/02/2025 EXAMINATION: MYOCARDIAL PET/CT PERFUSION IMAGING (STRESS/REST) DATE OF STUDY: 05/02/2025 SCANNER: [facility] [employer] (NV1). RADIOPHARMACEUTICAL: 7.72 mCi i.v., 15.22 mCi i.v., Injection site: HISTORY: CAD, PCI, HLD, HTN, former smoker. Evaluate for ischemia and/or microvascular dysfunction. The patient's body mass index (BMI) was 25kg/m2. TECHNIQUE: Both stress and rest imaging were performed, in the following order: rest/stress. Regadenoson Stress: The patient received 0.4 mg of the A2A adenosine receptor agonist regadenoson (Lexiscan) infused intravenously over 10 seconds, followed approximately 20 seconds later by radiopharmaceutical injection. The electrocardiogram during infusion of the stress agent was negative for ischemia. The patient reported no symptoms during vasodilation. See for a full report of the ECG pharmacologic stress test findings. Imaging: Dynamic rest PET/CT myocardial perfusion images were obtained immediately after radiopharmaceutical injection under rest. In addition, dynamic peak-stress PET/CT myocardial perfusion images were obtained beginning immediately after radiopharmaceutical injection at the peak effect of the drug. The low-dose noncontrast CT images were used for attenuation correction of the PET images and for localization of any abnormal extracardiac tracer uptake. COMPARISON: none FINDINGS: There is widely normal distribution of activity in the left and right ventricular myocardium on both stress and rest images. No reversibility to suggest ischemia. Normal rest perfusion. Gated peak-stress images demonstrate normal left ventricular wall thickening. The left ventricular volume is normal and the left ventricular ejection fraction is 46% (normal >45%). Additional gated rest images demonstrate normal left ventricular wall thickening and an underestimated resting left ventricular ejection fraction of 43%. Quantitative analysis of myocardial blood flow (MBF) in ml/g/min and myocardial flow reserve (MFR), calculated using 4DM software: MBF-stress MBF-rest MFR LAD: 1.89 0.68 2.79 LCx: 2.13 0.76 2.81 RCA: 1.86 0.64 2.90 Global: 1.94 0.69 2.81 (Normal N-13 values: rest MBF 0.8 - 1.2 mL/g/min; stress(hyperemic) MBF >2.0 mL/g/min; MFR>2.0) Incidental findings on the CT images: Calcified nodules subpleural RLL, calcified LNs perihilar right, s.p. PCI and stent, mild aortic calcifications, spondylosis. IMPRESSION: 1. Normal rest and pharmacologic-stress myocardial perfusion. 2. Normal left ventricular size and systolic function. 3. Flow quantification with normal global MFR of 2.81 signifies normal coronary microvascular function. (For detailed flow values, please see table in results). [place] and Zhou Shaw also participated in the interpretation of this examination. Electronically signed by: Tutu Solis M.D. Danny Deras MD IMG PET PROCEDURES Final Result * Pulmonary Function Test - (03/16/2025 3:22 PM CDT) FVC PRE 4.38 L [facility] FVC %PRE PRED 116 % [facility] FVC POST 4.09 L [facility] FVC %POST PRED 108 % [facility] FEV1 PRE 3.18 L [facility] FEV1 %PRE PRED 114 % [facility] FEV1 POST 3.17 L [facility] FEV1 %POST PRED 114 % [facility] FEV1/FVC PRE 72.6 % [facility] FEV1/FVC POST 77.5 % [facility] FRC PL PRE 4.66 L [facility] FRC PL %PRE PRED 124 % [facility] RV PRE 2.71 L [facility] RV %PRE PRED 104 % [facility] TLC PRE 6.50 L [facility] TLC %PRE PRED 93 % [facility] DLCO PRE 20.4 ml/min/mmH g [facility] DLCO %PRE PRED 84 % [facility] Anatomical Region Laterality Modality PFT 03/16/2025 2:36 PM CDT Narrative 03/16/2025 3:32 PM CDT PFT performed at:->[facility] Adult PFT [facility]- [id number] Procedure:->Complete/Full PFT Standard:->Spirometry, [...] and %HbO2 is age dependent. However, the [facility] Pulmonary Function Laboratory defines hypoxemia as a PaO2 <56 mm Hg or a %HbO2 <89%. Starting on June of 2024 the [facility] Pulmonary Function Laboratory utilizes race neutral GLI Global normative equations. Danny Deras MD PFT ORDERABLES Final Res ult from Last 3 Months Insurance [facility] MEDICARE [address] [place] [address] MEDICARE SUPPLEMENT MEDICARE RAILROAD [facility] MEDICARE SUPPLEMENT Care Teams Tavern Keeper Relationship Specialty Start Date End Date Cody Contreras [place] [place] [address] PCP - General Family Medicine 05/02/20
== END 2025-05-22 09:43 | disposition home or self-care (01) ==
PROVIDERS: PCP Nurse Practitioner Family; Visit Provider Nurse Practitioner Family
DX: Z01.818 Encounter for other preprocedural examination (principal); M79.672 Pain in left foot; R00.1 Bradycardia, unspecified; I45.19 Other right bundle-branch block; I44.4 Left anterior fascicular block; R94.31 Abnormal electrocardiogram [ECG] [EKG]
CPT/HCPCS: 36415; 71046; 73650; 80053; 81003; 85025; 85610; 93005